=== PATIENT | male | born 1950 | race Caucasian/White ===

== ENCOUNTER 2017-03-05 15:11 | Inpatient (IN) ==
[2017-03-05] MEDS ORDERED: IOPAMIDOL 100 ML BOTTLE IJ ONE (15:12)
[2017-03-05] MEDS ORDERED: 0.9 % SODIUM CHLORIDE 1,000 ML IV ONE (15:14)
[2017-03-05] MEDS ORDERED: KETOROLAC 30 MG/ML VIAL IV ONE (15:32)
[2017-03-05] MEDS ORDERED: PROCHLORPERAZINE 10 MG/2 ML VIAL IV ONE (15:32)
[2017-03-05] MEDS: HYDROmorphone 2 MG/ML SYRINGE IV PRN ×3 (15:40→22:01)
--- NOTE | 2017-03-05 15:41 | Emergency Department Note ---
Abdominal Pain HPI - General Chief Complaint: Abdominal Pain Stated Complaint: Abdominal Pain Time Seen by Provider: 03/05/17 15:16 Source: patient Mode of arrival: ambulatory Limitations: no limitations - History of Present Illness HPI Narrative: Patient returns, seen this morning and discharged with home therapy for acute pancreatitis. States pain is severe, hydrocodone not working. Heavy ongoing alcohol use. States nausea and occasional retching. Pain is worse with drinking and eating. Pain midepigastrium, radiating to his back. No shortness of breath no fevers. No generalized abdominal pain. Multiple hospitalizations for pancreatitis in the past. Recent residential alcohol treatment, states "I was kicked out because I didn't need it" - Related Data Home Medications Medication Instructions Recorded Confirmed Omeprazole 20 mg PO DAILY 03/07/15 03/05/17 Multivit-Min/Iron Fum/Folic AC 1 each PO DAILY 01/20/17 03/05/17 [Pavcj-Wrjfmff-Yytjwrra Tablet] Thiamine [Vitamin B1] 100 mg PO DAILY 01/20/17 03/05/17 Previous Rx's Medication Instructions Recorded HYDROcodone/APAP 5/325MG [[place] 1 tab PO Q4HP PRN #14 tablet 03/05/17 5/325Mg] Ondansetron HCl [Zofran ODT] 4 mg SL Q4-6HP PRN #10 tablet 03/05/17 Allergies Allergy/AdvReac Type Severity Reaction Status Date / Time No Known Drug Allergies Allergy Verified 03/05/17 15:13 Review of Systems All systems ED: reviewed and negative except as stated. Abdominal Pain PMH - Past Medical History Medical history: Reports: GERD, other (history of pancreatitis, history of alcohol dependency, drug addiction.) Surgical history ED: Reports: non-contributory Psychiatric history: Reports: PTSD Family history: Reports: non-contributory - Social History Smoking status: Former smoker Alcohol use: Reports: Heavy (at least a sixpack per day sometimes more), Recent Drug use: Reports: none Physical Exam - General Limitations: no limitations General appearance: alert, in distress, other (actively retching) - Head Head exam: atraumatic - Eye Eye exam: Present: normal appearance. Absent: scleral icterus - ENT ENT exam: normal exam, mucous membranes moist - Neck Neck exam: Present: normal inspection. Absent: lymphadenopathy - Chest Chest inspection: Present: normal inspection - Respiratory Respiratory exam: Present: normal lung sounds bilaterally. Absent: respiratory distress - Cardiovascular Cardiovascular exam: Present: regular rate - Abdominal Exam Abdominal exam: Present: tenderness. Absent: distention, guarding, rebound, rigidity, organomegaly - Extremities Exam Extremities exam: Present: normal inspection - Back Exam Back exam: Present: normal inspection - Neurological Exam Neurological exam: Present: alert, oriented X3 - Psychiatric Psychiatric exam: Present: other (strangely affable) - Skin Skin exam: Present: warm Course - Reevaluation(s) Reevaluation #1: Dr Gamboa willing to admit Vital Signs Temperature 97.3 F 03/05/17 15:11 Pulse Rate 64 03/05/17 15:11 Respiratory Rate 20 03/05/17 15:11 Blood Pressure 161/110 03/05/17 15:11 Pulse Oximetry (%) 97 03/05/17 15:11 Temperature 97.3 F 03/05/17 15:11 Pulse Rate 73 03/05/17 17:52 Respiratory Rate 11 L 03/05/17 17:52 Blood Pressure 158/80 03/05/17 16:01 Pulse Oximetry (%) 92 03/05/17 17:52 Abdominal Pain - Lab Data Result diagrams: 03/05/17 15:49 03/05/17 15:49 Lab Results 03/05/17 03/05/17 03/05/17 Range/Units 15:49 15:49 15:49 WBC 9.8 (4.5-11.0) K/mcL RBC 4.20 L (4.50-5.90) M/mcL Hgb 14.0 (13.5-16.5) g/dL Hct 40.8 L (41.0-55.0) % MCV 97.1 (80.0-100.0) fL MCH 33.2 (26.0-34.0) pg MCHC 34.2 (31.0-36.0) g/dL RDW 13.5 (11.5-14.5) % Plt Count 209 (140-440) K/mcL MPV 8.9 (7.4-10.4) fL Gran % 89.2 H (38.0-78.0) % Lymph % (Auto) 3.8 L (15.5-49.0) % Caroline % (Auto) 6.7 (1.0-12.0) % Eos % (Auto) 0.3 (0.0-7.0) % Baso % (Auto) 0 (0.0-2.0) % Gran # 8.7 H (1.8-8.0) K/mcL Lymph # (Auto) 0.4 L (1.5-4.8) K/mcL Caroline # (Auto) 0.7 (0.1-0.9) K/mcL Eos # (Auto) 0 (0.0-0.7) K/mcL Baso # (Auto) 0 (0.0-0.3) K/mcL Sodium 134 (133-145) mmol/L Potassium 4.2 (3.3-5.1) mmol/L Chloride 93 L (96-108) mmol/L Carbon Dioxide 24 (22-30) mmol/L Anion Gap 17.0 H (8-16) BUN 6 L (8-23) mg/dl Creatinine 0.6 L (0.7-1.2) mg/dl GFR Calculation 104 Glucose 126 H (70-105) mg/dL Calcium 8.1 L (8.6-10.4) mg/dl Total Bilirubin 0.5 (0.0-1.0) mg/dL AST 65 H (0-37) U/l ALT 48 H (0-40) U/l Alkaline Phosphatase 117 (39-117) U/L Total Protein 6.7 (5.9-8.4) gm/dL Albumin 3.6 (3.2-5.2) gm/dL Globulin 3.1 (2.2-3.7) gm/dL Albumin/Globulin Ratio 1.2 (1.0-2.3) Amylase 393 H (28-100) U/L Lipase 866 H (7-60) U/L Ethyl Alcohol 0.021 H (<0.010) gm/dl - Radiology Data Radiology results reviewed: Yes I reviewed the patient's radiology results. Ct with mod pancreatitis, question of free air Plain film without free air Disposition Pt seen by [facility] only: No Clinical Impression: Alcohol withdrawal delirium, acute, hyperactive Acute pancreatitis Qualifiers: Pancreatitis type: alcohol induced Acute pancreatitis complication: no infection or necrosis Qualified Code(s): K85.20 - Alcohol induced acute pancreatitis without necrosis or infection Disposition: Xfer As Inpt ([facility]) Condition: Serious Referrals: Ascencion Oviedo ARNP [Primary Care Provider] -
[2017-03-05] MEDS ORDERED: 0.9 % SODIUM CHLORIDE 1,000 ML IV SCH (15:45)
[2017-03-05 16:14] LABS: Basophils # (Auto) 0 K/mcL (0.0-0.3); Basophils % (Auto) 0 % (0.0-2.0); Eosinophils # (Auto) 0 K/mcL (0.0-0.7); Eosinophils % (Auto) 0.3 % (0.0-7.0); Granulocytes % (Auto) 89.2 % (38.0-78.0); Lymphocytes # (Auto) 0.4 K/mcL (1.5-4.8); Lymphocytes % (Auto) 3.8 % (15.5-49.0); Mean Cell Volume 97.1 fL (80.0-100.0); Mean Corpuscular HGB Conc 34.2 g/dL (31.0-36.0); Mean Corpuscular Hemoglobin 33.2 pg (26.0-34.0); Monocytes # (Auto) 0.7 K/mcL (0.1-0.9); Monocytes % (Auto) 6.7 % (1.0-12.0); Platelet Count 209 K/mcL (140-440); Red Cell Distribution Width 13.5 % (11.5-14.5)
[2017-03-05 16:54] LABS: ALT/SGPT 48 U/l (0-40); Albumin 3.6 gm/dL (3.2-5.2); Albumin/Globulin Ratio 1.2 (1.0-2.3); Alkaline Phosphatase 117 U/L (39-117); Amylase 393 U/L (28-100); Blood Urea Nitrogen 6 mg/dl (8-23); Lipase 866 U/L (7-60)
--- NOTE | 2017-03-05 17:32 | Cat Scan Report ---
CLINICAL INFORMATION: History of pancreatitis - abdominal pain COMPARISON: None. TECHNIQUE: Following enteric contrast, 80 cc of Isovue-300 were injected and 60 seconds later 2.5 mm helical slices were obtained from the mid heart through the iliac crest. Following reconstructions, sagittal, coronal and axial reformations were processed. Exam was reviewed at bone, lung and soft tissue windows Eight minutes later repeat 5 mm helical slices were obtained from the mid heart through the kidneys. FINDINGS: The lung bases show scattered scarring and/or atelectasis with cicitration atelectasis in the medial basilar segment left lower lobe. No effusion. The visualized heart is unremarkable. Images should the abdomen show minimal fatty change within the liver but no focal lesion. Gallbladder and bile ducts are normal CBD is 6 mm. Both kidneys, adrenal glands, spleen and aorta are normal There is moderate inflammatory changes in the peripancreatic fat compatible simple pancreatitis. There is no evidence of necrosis, abscess, hemorrhage or other complication. The stomach, small and large bowel are grossly normal. There is a 10 cm collection of free air in the anterior mesenteric cavity in the right upper quadrant adjacent the liver. Small amount of free fluid is noted in the periduodenal region. Bone windows show no osseous abnormality IMPRESSION: 1. Moderate free air within the mesenteric cavity of the right upper quadrant adjacent to the liver. This would indicate GI tract rupture likely in the stomach or duodenum. 2. Moderate simple pancreatitis Interpreted and Authenticated by: Luis Ba 03/05/17
[2017-03-05] MEDS ORDERED: LORazepam 2 MG/ML VIAL IV ONE (17:39)
--- NOTE | 2017-03-05 18:58 | Internal Med History&Physical ---
Medical - H&P: [facility] Patient information: Note initiated : 03/05/17 at 6:53 pm Patient: Miquel Quinn 66 y/o M admitted on for pancreatitis, alcohol withdrawal History of present illness: Mr. Quinn is a 66 year old man with a history of alcohol abuse and previous pancreatitis. He presented to the emergency room this morning complaining of increased abdominal pain. He was hydrated and given oral pain meds and sent home. He returned this afternoon with increasing abdominal pain and inability to tolerate p.o. ER evaluation showed elevated amylase and lipase. Patient is also tremulous, and reports that he has been trying to cut down on his drinking. He reports that he started having epigastric abdominal pain about 2 days ago. His pain is very similar previous episodes of pancreatitis. He says he has been a little bit nauseated, and has had mildly blurry vision. He denies fever or chills, headaches, new ear symptoms, sore throat, chest pain or palpitations , shortness of breath or cough. He has not had vomiting, diarrhea, constipation , or dysuria. He reports that he previously drank about 24-30 cans of beer per day. He says over the last few months he has gradually cut down to about 6 beers per day. He quit smoking about 17 years ago. Past medical history: Pancreatitis, alcoholic. Alcohol abuse. GERD History of drug abuse History of PTSD Former smoker. History of alcoholic hepatitis History of syncope January 20, 2017 Medications: Omeprazole 20 mg daily Multivitamin 1 daily Thiamine 100 mg daily [place] 5/325 every 4 hours as needed Zofran sublingual 4 mg every 4 hours as needed next Allergies: No known drug allergies. Social history: Patient admits to drinking at least a sixpack of beer per day, and reports that he previously drank as much as 1-1/2 cases of beer per day. He was a chronic smoker, but quit in June 1999. Reports he does not use drugs. He currently lives with his girlfriend. He says they have several RV using cabins, and he travels quite a bit. Family history: Patient believes his mother with a stroke. His father of "natural causes". His sister has diabetes. Medical - H&P: Meds Home Medications Medication Instructions Recorded Confirmed Type Omeprazole 20 mg PO DAILY 03/07/15 03/05/17 History Multivit-Min/Iron Fum/Folic AC 1 each PO DAILY 01/20/17 03/05/17 History [Stemt-Mwnsmir-Fumomdqq Tablet] Thiamine [Vitamin B1] 100 mg PO DAILY 01/20/17 03/05/17 History HYDROcodone/APAP 5/325MG [[place] 1 tab PO Q4HP PRN #14 tablet 03/05/17 Rx 5/325Mg] Ondansetron HCl [Zofran ODT] 4 mg SL Q4-6HP PRN #10 tablet 03/05/17 Rx Allergies Allergy/AdvReac Type Severity Reaction Status Date / Time No Known Drug Allergies Allergy Verified 03/05/17 15:13 Medical - H&P: Exam - Constitutional Vitals: Temp Pulse Resp BP Pulse Ox 97.3 F 82 12 155/92 93 03/05/17 15:11 03/05/17 18:17 03/05/17 18:17 03/05/17 18:05 03/05/17 18:17 O2 saturation ranging from 80-98% on 0-3 L nasal cannula.. Heart rate ranging from 44-63. Respiratory rate ranges from 10 -30. Temperature 97.3. Blood pressure 161/98. The patient does not appear to be in any acute distress currently. Head: Normocephalic, atraumatic. Eyes: Pupils are fairly pinpoint, EOMI, anicteric. Ears: TMs and canals are clear. Pharynx: Clear. He is edentulous. No posterior pharynx discharge is noted. Neck: Is supple, without obvious lymphadenopathy, JVD, thyromegaly, bruits. Cardiac: Shows regular rate and rhythm with normal S1 and S2. There is a soft systolic murmur noted just at the apex. No rubs or gallops are noted. Lungs: Clear to auscultation, without rales, rhonchi, wheezes. Abdomen: Distended, but fairly soft. He has moderate epigastric tenderness, without significant guarding or rebound. Bowel sounds are active. No masses are appreciated. Extremities: Show no significant cyanosis, clubbing, edema. Neurologic exam: Patient is alert and oriented. He is sleepy, and does fall asleep at certain points during the interview. He otherwise seems to answer most questions appropriately. Motor exam is grossly nonfocal. No tremor is noted. Medical - H&P: Reslt - Labs CBC & Chem 7: 03/05/17 15:49 03/05/17 15:49 Labs: Short CBC 03/05/17 Range/Units 15:49 WBC 9.8 (4.5-11.0) K/mcL Hgb 14.0 (13.5-16.5) g/dL Hct 40.8 L (41.0-55.0) % Plt Count 209 (140-440) K/mcL BMP 03/05/17 15:49 Sodium 134 Potassium 4.2 Chloride 93 L Carbon Dioxide 24 BUN 6 L Creatinine 0.6 L Glucose 126 H Calcium 8.1 L Liver Function 03/05/17 Range/Units 15:49 Total Bilirubin 0.5 (0.0-1.0) mg/dL AST 65 H (0-37) U/l ALT 48 H (0-40) U/l Alkaline Phosphatase 117 (39-117) U/L Albumin 3.6 (3.2-5.2) gm/dL March 05: CBC: Differential shows a granulocyte count of 8700. Lymphocyte count is only 400. Anion gap is elevated at 17 [place] calcium is low at 8.1. AST elevated at 65 ALT elevated at 48. Lipase is elevated at 866. Amylase elevated at 393. Alcohol level is elevated at 0.021. Next Chest x-ray: Abdominal CT: Fatty liver change. Moderate inflammatory changes in the peripancreatic fat compatible with pancreatitis. No sign of necrosis, abscess, hemorrhage. Possible 10 cm collection of free air in the anterior mesenteric cavity. Follow-up x-ray is reported as showing no signs of free air. February 18, 2016: Screening hepatitis panel was negative. Medical - H&P: A/P (1) Pancreatitis, alcoholic, acute Current visit: No Status: Acute (2) Alcohol withdrawal delirium, acute, hyperactive Current visit: Yes Status: Acute - Narrative A/P Narrative: #1. GI. -Patient presents with signs and symptoms of acute, worsening, alcohol induced pancreatitis. Admit for close monitoring, IV fluids, n.p.o. status/bowel rest, pain medications, monitoring of labs. -History of GERD. Change oral omeprazole over to IV Protonix. 2. Signs of early alcohol withdrawal. Patient is a known heavy drinker. He will be monitored on telemetry, and monitored with our alcohol withdrawal protocol, and treated with Ativan and clonidine as needed. Replace with multivitamins, thiamine, folate. Plan continue IV fluids. 3. CODE STATUS: Full code. He was like his significant other, Jaci Virk, to act as his POA. He is not sure if he is ever put that in writing. 4. DVT prophylaxis: Subcu heparin. 5. Psychiatric. Reported history of PTSD. - this may need further follow-up, to see if he needs psychiatric medications. He may be self-medicating with alcohol. Days visit is taken approximately 55 minutes, to review the patient's case with the ER MD, interview and examine him, review test results, and write orders.
[2017-03-05] MEDS ORDERED: DOCUSATE SODIUM 100 MG CAPSULE PO PRN (19:28)
[2017-03-05] MEDS ORDERED: ONDANSETRON 4 MG/2 ML VIAL IV PRN (19:28)
[2017-03-05] MEDS ORDERED: ACETAMINOPHEN 650 MG/65 ML BOTTLE IV PRN (19:28)
[2017-03-05] MEDS ORDERED: POTASSIUM CHLORIDE 20 MEQ in 0.9 % SODIUM CHLORIDE 1,000 ML IV SCH (19:28)
[2017-03-05] MEDS ORDERED: MAGNESIUM HYDROXIDE 30 ML ORAL.SUSP PO PRN (19:28)
[2017-03-05] MEDS ORDERED: NALOXONE HCL 0.4 MG/ML VIAL IV PRN (19:28)
[2017-03-05] MEDS: 0.9 % SODIUM CHLORIDE 1,000 ML IV SCH (20:17)
[2017-03-05] MEDS ORDERED: ONDANSETRON 4 MG/2 ML VIAL ONE (20:26)
[2017-03-05] MEDS ORDERED: HYDROmorphone 2 MG/ML SYRINGE ONE (20:26)
[2017-03-05] MEDS: 0.9 % SODIUM CHLORIDE 10 ML SYRINGE IV SCH (20:36)
[2017-03-05] MEDS: HEPARIN 5,000 UNIT/ML VIAL SQ SCH (20:37)
[2017-03-05] MEDS ORDERED: HEPARIN 5,000 UNIT/ML VIAL ONE (20:43)
[2017-03-05] MEDS: LORazepam 2 MG/ML VIAL IV PRN (22:01)
[2017-03-05] MEDS: NACL 0.9% W/KCL 20MEQ 1,000 ML IV SCH (22:45)
[2017-03-05 22:57] LABS: Appearance,Urine CLEAR; Bilirubin,Urine NEG (NEG); Color,Urine YELLOW; Glucose,Urine (UA) NEGATIVE (NEG); Leukocyte Esterase,Urine NEG /uL (NEG); Nitrate,Urine NEG (NEG); Protein,Urine NEG (NEG); Specific Gravity,Urine 1.027 (1.000-1.035); Urine Blood NEG mg/dL (<0.03); Urobilinogen,Urine NEG (NEG)
[2017-03-06] MEDS: cloNIDine HCL 0.1 MG TABLET PO PRN (00:07)
[2017-03-06] MEDS: NACL 0.9% W/KCL 20MEQ 1,000 ML IV SCH ×6 (00:07→20:28)
[2017-03-06] MEDS: 0.9 % SODIUM CHLORIDE 1,000 ML IV SCH ×2 (00:08→04:15)
[2017-03-06] MEDS: HYDROmorphone 2 MG/ML SYRINGE IV PRN ×7 (00:32→23:36)
[2017-03-06] MEDS: 0.9 % SODIUM CHLORIDE 10 ML SYRINGE IV SCH ×3 (05:12→20:47)
[2017-03-06 05:13] LABS: Basophils # (Auto) 0 K/mcL (0.0-0.3); Basophils % (Auto) 0.1 % (0.0-2.0); Eosinophils # (Auto) 0 K/mcL (0.0-0.7); Eosinophils % (Auto) 0 % (0.0-7.0); Granulocytes % (Auto) 89.6 % (38.0-78.0); Lymphocytes # (Auto) 0.2 K/mcL (1.5-4.8); Lymphocytes % (Auto) 2.5 % (15.5-49.0); Mean Cell Volume 98.1 fL (80.0-100.0); Mean Corpuscular HGB Conc 34.3 g/dL (31.0-36.0); Mean Corpuscular Hemoglobin 33.6 pg (26.0-34.0); Monocytes # (Auto) 0.7 K/mcL (0.1-0.9); Monocytes % (Auto) 7.8 % (1.0-12.0); Platelet Count 164 K/mcL (140-440); RBC 3.94 M/mcL (4.50-5.90); Red Cell Distribution Width 13.6 % (11.5-14.5)
[2017-03-06 05:29] LABS: ALT/SGPT 39 U/l (0-40); Albumin 3.3 gm/dL (3.2-5.2); Albumin/Globulin Ratio 1.1 (1.0-2.3); Alkaline Phosphatase 125 U/L (39-117); Amylase 472 U/L (28-100); Bilirubin,Direct 0.3 mg/dL (0.0-0.3); Blood Urea Nitrogen 4 mg/dl (8-23); Gamma Glutamyl Transpeptidase 194 U/L (8-61); Lipase 838 U/L (7-60); Magnesium 1.7 mg/dL (1.6-2.5); Uric Acid 4.1 mg/dL (2.5-8.0)
--- NOTE | 2017-03-06 06:45 | XRay Report ---
CLINICAL INFORMATION: Pancreatitis. Possible free air on abdomen CT COMPARISON: Chest x-ray from 01/20/2017 FINDINGS: The heart is mildly enlarged, but unchanged. Mediastinum and pulmonary vessels are normal. There is minor atelectasis in the left base. There is no subdiaphragmatic free air. There is an air collection in the right upper quadrant which is likely within the hepatic flexure of the colon. No effusion IMPRESSION: 1. Minor left basilar atelectasis 2. No evidence of free air - please see above Interpreted and Authenticated by: Luis Ba 03/06/17
[2017-03-06] MEDS: PANTOPRAZOLE 40 MG VIAL IV SCH (07:31)
[2017-03-06] MEDS ORDERED: MULTIVIT,THER IRON,CA,FA & MIN 1 TABLET PO SCH (09:00)
[2017-03-06] MEDS ORDERED: FLU VACC QS2017-18 36MOS UP/PF 60 MCG/0.5 ML SYRINGE IM ONE (09:00)
[2017-03-06] MEDS ORDERED: THIAMINE 100 MG in 0.9 % SODIUM CHLORIDE 50 ML IV SCH (09:00)
[2017-03-06] MEDS: FOLIC ACID 1 MG TABLET PO SCH (09:25)
[2017-03-06] MEDS: HEPARIN 5,000 UNIT/ML VIAL SQ SCH ×2 (09:25→20:47)
[2017-03-06] MEDS: LORazepam 2 MG/ML VIAL IV PRN ×10 (11:25→23:45)
[2017-03-06] MEDS ORDERED: POTASSIUM CHLORIDE 20 MEQ, MAGNESIUM SULFATE 16.24 MEQ, THIAMINE 100 MG, MVI, ADULT NO.... IV ONE (16:00)
--- NOTE | 2017-03-06 16:08 | Internal Med Progress Note ---
Medical - PN: Subj Patient information: Note initiated : 03/06/17 at 4:05 pm Patient: Miquel Quinn 66 y/o M admitted on 03/05/17 for Abdominal Pain. Interval history: March 05, 2017: History of present illness: Mr. Quinn is a 66 year old man with a history of alcohol abuse and previous pancreatitis. He presented to the emergency room this morning complaining of increased abdominal pain. He was hydrated and given oral pain meds and sent home. He returned this afternoon with increasing abdominal pain and inability to tolerate p.o. ER evaluation showed elevated amylase and lipase. Patient is also tremulous, and reports that he has been trying to cut down on his drinking. He reports that he started having epigastric abdominal pain about 2 days ago. His pain is very similar previous episodes of pancreatitis. He says he has been a little bit nauseated, and has had mildly blurry vision. He denies fever or chills, headaches, new ear symptoms, sore throat, chest pain or palpitations , shortness of breath or cough. He has not had vomiting, diarrhea, constipation , or dysuria. He reports that he previously drank about 24-30 cans of beer per day. He says over the last few months he has gradually cut down to about 6 beers per day. He quit smoking about 17 years ago. March 06: This morning, the patient says he is feeling a bit better, but is still having fairly significant epigastric pain. He rates his pain as an 8 out of 10. He is getting a bit anxious waiting for more pain medicine. He denies feeling tremulous and denies that he feels like he really needs a drink. He says he is very hungry and would like to eat something. He otherwise denies fever or chills, headaches or dizziness, chest pain or shortness of breath, nausea or vomiting, diarrhea or constipation, dysuria. This afternoon, he became more agitated, and apparently pulled out his IV, and demanded to leave. Nursing staff talked with him and calmed him down, and we also called his POA to come in. It was explained to him that if he went home and ate, that his pancreatitis and abdominal pain would likely get worse, and he would have to come back. He eventually calmed down and agreed to stay. It would appear that he may have early alcohol withdrawal contributing to his anxiety. - Constitutional Vitals: Vital Signs Temp Pulse Resp BP Pulse Ox 99.3 F H 66 18 150/88 89 L 03/06/17 12:28 03/06/17 12:00 03/06/17 12:28 03/06/17 12:00 03/06/17 12:00 Period Temp Pulse Resp BP Sys/[place] Pulse Ox Last 24 Hr 98.1 F-99.3 F 64-76 16-18 143-182/87-108 89-99 Intake and Output 03/06/17 03/06/17 03/06/17 05:59 13:59 21:59 Intake Total 1999 Output Total 1650 / 1650 1924 Balance 350 / 350 166 / 166 Intake & Output: Intake & Output 03/06/17 03/06/17 03/06/17 05:59 13:59 21:59 Intake Total 1999 Output Total 1650 / 1650 1924 Balance 350 / 350 166 / 166 Intake: IV 1999 Sodium Chloride 0.9% 1, 1000 / 1000 000 ml @ 250 mls/hr IV . Q4H GARC[facility]A Rx#:[id number] NaCl 0.9% W/KCl 20Meq 1979 / 1979 1000ML 1,000 ml @ 150 mls /hr IV .Q6H40M GARCÍA Rx#: [id number] Vitamin B1 100 mg In 51 / 51 Sodium Chloride 0.9% 50 ml @ 50 mls/hr IV DAILY AGRCÍA Rx#:[id number] Oral 60 / 60 Output: Void Amount 1650 / 1650 1924 This morning the patient seemed uncomfortable, and was sitting up and leaning forward regarding his abdominal discomfort. This afternoon he was a little more anxious, and sitting up in a chair. Temperature 99.3. Heart rate 67. Respiratory rate 18. Blood pressure ranges from 147/93-182/95. O2 saturation varies from 89-99% on 2 L nasal cannula. Currently, he is not in acute distress. Neck is supple without obvious JVD. Cardiac exam shows regular rate and rhythm. Lungs are clear to auscultation. Abdomen: He has moderate to severe epigastric tenderness with moderate palpation. There is some guarding but no definite rebound. Bowel sounds are hypoactive. Extremities show no edema. Neurologic exam: The patient seems moderately confused. He is anxious at times. So far, he is redirectable. Motor exam is grossly nonfocal. Medical - PN: Obj Da - Labs CBC & Chem 7: 03/06/17 03:52 03/06/17 03:52 Labs: Abnormal Lab Results 03/06/17 03/06/17 03:52 03:52 RBC 3.94 L Hgb 13.3 L Hct 38.7 L Gran % 89.6 H Lymph % (Auto) 2.5 L Lymph # (Auto) 0.2 L Sodium 131 L Chloride 93 L BUN 4 L Creatinine 0.5 L Glucose 130 H Calcium 7.7 L Phosphorus 2.2 L GGT 194 H AST 50 H Alkaline Phosphatase 125 H Amylase 472 H Lipase 838 H Meds: Medications Clonidine HCl (Catapres) 0.1 mg PO Q4HP PRN PRN Reason: Alcohol Withdrawal Last Admin: 03/06/17 00:07 Dose: 0.1 mg Docusate Sodium (Colace) 100 mg PO BID PRN PRN Reason: Constipation Folic Acid (Folic Acid) 1 mg PO DAILY [facility] Last Admin: 03/06/17 09:25 Dose: 1 mg Heparin Sodium (Porcine) (Heparin) 5,000 unit SQ Q12 GARCÍA Last Admin: 03/06/17 09:25 Dose: 5,000 unit Hydromorphone HCl (Dilaudid) 1 mg IV Q2HP PRN PRN Reason: Pain Last Admin: 03/06/17 13:45 Dose: 1 mg Acetaminophen (Ofirmev) 650 mg in 65 mls @ 130 mls/hr IV Q6HP PRN PRN Reason: PAIN/FEVER > 101 Potassium Chloride/Sodium Chloride (Nacl 0.9% W/Kcl 20meq 1000ml) 1,000 mls @ 150 mls/hr IV .Q6H40M [facility] Last Admin: 03/06/17 13:45 Dose: 150 mls/hr Potassium Chloride 20 meq/Magnesium Sulfate 16.24 meq/Thiamine HCl 100 mg/ Multivitamins/Minerals 10 ml/Sodium Chloride 1,025 mls @ 125 mls/hr IV .Q8H12M ONE Stop: 03/07/17 00:11 Lorazepam (Ativan) 0 mg IV Q4HP PRN; Protocol PRN Reason: Alcohol Withdrawal Last Admin: 03/06/17 15:15 Dose: 4 mg Magnesium Hydroxide (Milk Of Magnesia) 30 ml PO DAILYP PRN PRN Reason: Constipation Naloxone HCl (Narcan) 0.1 mg IV Q2MIN PRN PRN Reason: Opiate Reversal Ondansetron HCl (Zofran) 4 mg IV Q4HP PRN PRN Reason: Nausea And Vomiting Pantoprazole Sodium (Protonix) 40 mg IV QAMAC [facility] Last Admin: 03/06/17 07:31 Dose: 40 mg Sodium Chloride (Saline Flush) 10 ml IV Q8 [facility] Last Admin: 03/06/17 13:45 Dose: 10 ml Medical - PN: A/P - Time Spent With Patient Total time spent is greater than 50% in coordination of care (as documented) at patient's floor/unit and/or counseling patient: Greater than 35 minutes (1) Pancreatitis, alcoholic, acute Status: Acute Current Visit: No (2) Alcohol withdrawal delirium, acute, hyperactive Status: Acute Current Visit: Yes - Narrative A/P Narrative: A/P Narrative: #1. GI. -Patient presents with signs and symptoms of acute, worsening, alcohol induced pancreatitis. Pain is only moderately well controlled today. Amylase is a bit higher, lipase a bit lower. Nursing staff and I have both explained to the patient that at this point it makes the most sense to remain n.p.o. except for ice chips, to avoid irritating his pancreas any further. It was explained to him several times that bowel rest is really the cure for pancreatitis, and that while he is on bowel rest he is best served to be on IV fluids as well. -After he calmed down, he was given doses of both Dilaudid and Ativan to help him relax. -Continue IV fluids, n.p.o. status/bowel rest, pain medications, Ativan as needed nausea and agitation. -History of GERD. Change oral omeprazole over to IV Protonix. 2. Signs of early alcohol withdrawal. Patient is a known heavy drinker. He will be monitored on telemetry, and monitored with our alcohol withdrawal protocol, and treated with Ativan and clonidine as needed. Replace with IV multivitamins, thiamine, folate. 3. CODE STATUS: Full code. He would like his significant other, Jaci Virk , to act as his POA. He is not sure if he is ever put that in writing. 4. DVT prophylaxis: Subcu heparin. 5. Psychiatric. Reported history of PTSD. - this may need further follow-up, to see if he needs psychiatric medications. He may be self-medicating with alcohol. -He certainly got anxious today, but that is likely due to alcohol withdrawal. Continue as needed Ativan. Approximately 40 minutes was spent so far today, interviewing and examining him twice, reviewing test results, reviewing plan of care with nursing, and writing orders. Addendum: The patient became agitated for a third time today, this evening, and was very confused and trying to pull out lines etc. It appears he is developing full- blown alcohol withdrawal. He will be placed in restraints, and given enough Ativan to calm him down. We need to protect his lines, so we can continue to give him IV fluids, as he continues on bowel rest for his acute pancreatitis. Continue to monitor his alcohol withdrawal symptoms, and use as needed Ativan and clonidine to control. Medical - PN: Qual - VTE Deep Vein Thrombosis/Pulmonary Embolism Present on Admission: No
[2017-03-06 22:45] LABS: Appearance,Urine CLEAR; Bilirubin,Urine NEG (NEG); Color,Urine YELLOW; Glucose,Urine (UA) NEGATIVE (NEG); Leukocyte Esterase,Urine NEG /uL (NEG); Nitrate,Urine NEG (NEG); Protein,Urine NEG (NEG); Urine Blood NEG mg/dL (<0.03); Urobilinogen,Urine NEG (NEG)
[2017-03-07] MEDS: NACL 0.9% W/KCL 20MEQ 1,000 ML IV SCH ×5 (00:18→22:44)
[2017-03-07] MEDS: LORazepam 2 MG/ML VIAL IV PRN ×16 (03:55→21:12)
[2017-03-07] MEDS: HYDROmorphone 2 MG/ML SYRINGE IV PRN ×7 (04:05→21:29)
[2017-03-07] MEDS: 0.9 % SODIUM CHLORIDE 10 ML SYRINGE IV SCH ×3 (05:34→22:44)
[2017-03-07 05:35] LABS: Basophils # (Auto) 0 K/mcL (0.0-0.3); Basophils % (Auto) 0.2 % (0.0-2.0); Eosinophils # (Auto) 0.1 K/mcL (0.0-0.7); Eosinophils % (Auto) 0.6 % (0.0-7.0); Granulocytes % (Auto) 84.9 % (38.0-78.0); Lymphocytes # (Auto) 0.5 K/mcL (1.5-4.8); Lymphocytes % (Auto) 4.9 % (15.5-49.0); Mean Cell Volume 97.9 fL (80.0-100.0); Mean Corpuscular HGB Conc 34.4 g/dL (31.0-36.0); Mean Corpuscular Hemoglobin 33.6 pg (26.0-34.0); Monocytes % (Auto) 9.4 % (1.0-12.0); Platelet Count 125 K/mcL (140-440); Red Cell Distribution Width 13.3 % (11.5-14.5)
[2017-03-07 06:00] LABS: ALT/SGPT 28 U/l (0-40); Albumin 3.1 gm/dL (3.2-5.2); Alkaline Phosphatase 108 U/L (39-117); Bilirubin,Direct 0.3 mg/dL (0.0-0.3); Blood Urea Nitrogen 4 mg/dl (8-23); Gamma Glutamyl Transpeptidase 167 U/L (8-61); Lipase 101 U/L (7-60); Magnesium 2.2 mg/dL (1.6-2.5); Uric Acid 3.4 mg/dL (2.5-8.0)
[2017-03-07] MEDS: PANTOPRAZOLE 40 MG VIAL IV SCH (07:50)
[2017-03-07] MEDS: FOLIC ACID 1 MG TABLET PO SCH (09:14)
[2017-03-07] MEDS: HEPARIN 5,000 UNIT/ML VIAL SQ SCH ×2 (09:38→20:02)
--- NOTE | 2017-03-07 11:57 | Internal Med Progress Note ---
Medical - PN: Subj Patient information: Note initiated : 03/07/17 at 11:57 am Patient: Miquel Quinn 66 y/o M admitted on 03/05/17 for Abdominal Pain. Interval history: March 05, 2017: History of present illness: Mr. Quinn is a 66 year old man with a history of alcohol abuse and previous pancreatitis. He presented to the emergency room this morning complaining of increased abdominal pain. He was hydrated and given oral pain meds and sent home. He returned this afternoon with increasing abdominal pain and inability to tolerate p.o. ER evaluation showed elevated amylase and lipase. Patient is also tremulous, and reports that he has been trying to cut down on his drinking. He reports that he started having epigastric abdominal pain about 2 days ago. His pain is very similar previous episodes of pancreatitis. He says he has been a little bit nauseated, and has had mildly blurry vision. He denies fever or chills, headaches, new ear symptoms, sore throat, chest pain or palpitations , shortness of breath or cough. He has not had vomiting, diarrhea, constipation , or dysuria. He reports that he previously drank about 24-30 cans of beer per day. He says over the last few months he has gradually cut down to about 6 beers per day. He quit smoking about 17 years ago. March 06: This morning, the patient says he is feeling a bit better, but is still having fairly significant epigastric pain. He rates his pain as an 8 out of 10. He is getting a bit anxious waiting for more pain medicine. He denies feeling tremulous and denies that he feels like he really needs a drink. He says he is very hungry and would like to eat something. He otherwise denies fever or chills, headaches or dizziness, chest pain or shortness of breath, nausea or vomiting, diarrhea or constipation, dysuria. This afternoon, he became more agitated, and apparently pulled out his IV, and demanded to leave. Nursing staff talked with him and calmed him down, and we also called his POA to come in. It was explained to him that if he went home and ate, that his pancreatitis and abdominal pain would likely get worse, and he would have to come back. He eventually calmed down and agreed to stay. It would appear that he may have early alcohol withdrawal contributing to his anxiety. March 07: Overnight, the patient has become progressively more confused and agitated. He had to be placed in 4 point restraints, as he can be quite violent when he first awakens. He has pulled out lines several times, and tried to pull out his Ramirez catheter. This morning, he is fairly sedated with Ativan. He opens his eyes and tries to answer questions, but speech is mostly unintelligible. Shortly after my exam, he again became more agitated and combative, and had to be given more sedation. He has been running a low-grade fever of 99.3. He is intermittently tachycardic and tachypneic. He is maintaining O2 saturations just fine. His significant other is questioning why, if his alcohol withdrawal is so intense, white at the [place] discharge him when he went in for detox, after just 2 days. - Constitutional Vitals: Vital Signs Temp Pulse Resp BP Pulse Ox 99.3 F H 106 H 16 121/76 96 03/07/17 08:00 03/07/17 04:16 03/07/17 08:00 03/07/17 08:00 03/07/17 09:09 Period Temp Pulse Resp BP Sys/Rosado Pulse Ox Last 24 Hr 98.1 F-99.3 F 66-106 16-30 121-150/76-103 89-97 Intake and Output 03/06/17 03/07/17 03/07/17 21:59 05:59 13:59 Intake Total 1000 / 1000 1025 / 1025 Output Total 1250 / 1250 Balance 999 / 999 -225 / -225 Weight 196 lb 4.8 oz 196 lb 4.8 oz Patient Weight 03/08/17 05:59 Weight 196 lb 4.8 oz Intake & Output: Intake & Output 03/06/17 03/07/17 03/07/17 21:59 05:59 13:59 Intake Total 1000 / 1000 1025 / 1025 Output Total 1250 / 1250 Balance 999 / 999 -225 / -225 Weight 196 lb 4.8 oz 196 lb 4.8 oz Intake: IV 1000 / 1000 1025 / 1025 NaCl 0.9% W/KCl 20Meq 1000 / 1000 1000ML 1,000 ml @ 150 mls /hr IV .Q6H40M GARC[facility]A Rx#: [id number] Output: Urine Catheter Amount 1250 / 1250 # of times incontinent of urine He is somnolent. He opens his eyes briefly to loud stimulation, but speech is not really intelligible. Temperature 99.3. Heart rate 76. Respiratory rate 20. Blood pressure 129/79. O2 saturations 96% on 2 L. Neck appears supple without obvious lymphadenopathy or JVD. Cardiac exam shows regular rate and rhythm. Lungs are clear to auscultation, without patient fully cooperative with exam. Abdomen is soft, without obvious tenderness. Bowel sounds are hypoactive. There is no guarding or rebound. Extremities show no edema. On neurologic exam, the patient is mostly obtunded. When he wakes up he is moving all extremities symmetrically. Medical - PN: Obj Da - Labs CBC & Chem 7: 03/07/17 04:13 03/07/17 04:13 Labs: Abnormal Lab Results 03/07/17 03/07/17 03/06/17 04:13 04:13 03:52 RBC 3.90 L Hgb 13.1 L Hct 38.1 L Plt Count 125 L Gran % 84.9 H Lymph % (Auto) 4.9 L Gran # 8.9 H Lymph # (Auto) 0.5 L [place] # (Auto) 1.0 H Sodium 131 L Chloride 93 L BUN 4 L 4 L Creatinine 0.5 L Glucose 130 H 130 H Calcium 7.9 L 7.7 L Phosphorus 1.5 L 2.2 L GGT 167 H 194 H AST 50 H Alkaline Phosphatase 125 H Albumin 3.1 L Amylase 472 H Lipase 101 H 838 H 03/06/17 03:52 RBC 3.94 L Hgb 13.3 L Hct 38.7 L Plt Count Gran % 89.6 H Lymph % (Auto) 2.5 L Gran # Lymph # (Auto) 0.2 L [place] # (Auto) Sodium Chloride BUN Creatinine Glucose Calcium Phosphorus GGT AST Alkaline Phosphatase Albumin Amylase Lipase March 05: MRSA screen is negative. Blood cultures are negative so far. Urinalysis: Is essentially normal. CBC: Differential shows a granulocyte count of 8700. Lymphocyte count is only 400. Anion gap is elevated at 17 calcium is low at 8.1. AST elevated at 65 ALT elevated at 48. Lipase is elevated at 866. Amylase elevated at 393. Alcohol level is elevated at 0.021. Chest x-ray: Minor left basilar atelectasis. No evidence of free air. Abdominal CT: Fatty liver change. Moderate inflammatory changes in the peripancreatic fat compatible with pancreatitis. No sign of necrosis, abscess, hemorrhage. Possible 10 cm collection of free air in the anterior mesenteric cavity. Follow-up x-ray is reported as showing no signs of free air. February 18, 2016: Screening hepatitis panel was negative. Meds: Medications Clonidine HCl (Catapres) 0.1 mg PO Q4HP PRN PRN Reason: Alcohol Withdrawal Last Admin: 03/06/17 00:07 Dose: 0.1 mg Docusate Sodium (Colace) 100 mg PO BID PRN PRN Reason: Constipation Folic Acid (Folic Acid) 1 mg PO DAILY [facility] Last Admin: 03/07/17 09:14 Dose: Not Given Heparin Sodium (Porcine) (Heparin) 5,000 unit SQ Q12 [facility] Last Admin: 03/07/17 09:38 Dose: 5,000 unit Hydromorphone HCl (Dilaudid) 1 mg IV Q2HP PRN PRN Reason: Pain Last Admin: 03/07/17 09:36 Dose: 1 mg Acetaminophen (Ofirmev) 650 mg in 65 mls @ 130 mls/hr IV Q6HP PRN PRN Reason: PAIN/FEVER > 101 Potassium Chloride/Sodium Chloride (Nacl 0.9% W/Kcl 20meq 1000ml) 1,000 mls @ 150 mls/hr IV .Q6H40M [facility] Last Admin: 03/07/17 05:36 Dose: 150 mls/hr Lorazepam (Ativan) 0 mg IV Q4HP PRN; Protocol PRN Reason: Alcohol Withdrawal Last Admin: 03/07/17 10:55 Dose: 4 mg Magnesium Hydroxide (Milk Of Magnesia) 30 ml PO DAILYP PRN PRN Reason: Constipation Naloxone HCl (Narcan) 0.1 mg IV Q2MIN PRN PRN Reason: Opiate Reversal Ondansetron HCl (Zofran) 4 mg IV Q4HP PRN PRN Reason: Nausea And Vomiting Pantoprazole Sodium (Protonix) 40 mg IV QAMAC [facility] Last Admin: 03/07/17 07:50 Dose: 40 mg Sodium Chloride (Saline Flush) 10 ml IV Q8 [facility] Last Admin: 03/07/17 05:34 Dose: 10 ml Medical - PN: A/P - Time Spent With Patient Total time spent is greater than 50% in coordination of care (as documented) at patient's floor/unit and/or counseling patient: 25 - 35 minutes (1) Pancreatitis, alcoholic, acute Status: Acute Current Visit: No (2) Alcohol withdrawal delirium, acute, hyperactive Status: Acute Current Visit: Yes - Narrative A/P Narrative: A/P Narrative: #1. GI. -Patient presents with signs and symptoms of acute, worsening, alcohol induced pancreatitis. -Patient now appears to be in full-blown alcohol withdrawal, so mental status is quite impaired. Fortunately, his lipase has dropped fairly dramatically. He continues in an n.p.o. status, with IV fluids. -Continue IV fluids, n.p.o. status/bowel rest, pain medications, Ativan as needed nausea and agitation. -History of GERD. Change oral omeprazole over to IV Protonix. 2. Signs of early alcohol withdrawal. He is now in active withdrawal. Continue to use the CIWA protocol, and use Ativan and clonidine as needed to control symptoms. Replace with IV multivitamins, thiamine, folate. 3. CODE STATUS: Full code. He would like his significant other, Jaci Virk , to act as his POA. He is not sure if he is ever put that in writing. 4. DVT prophylaxis: Subcu heparin. 5. Psychiatric. Reported history of PTSD. - this may need further follow-up, to see if he needs psychiatric medications. He may be self-medicating with alcohol. Medical - PN: Qual - VTE Deep Vein Thrombosis/Pulmonary Embolism Present on Admission: No
[2017-03-07] MEDS: cloNIDine HCL 0.1 MG TABLET PO PRN (14:15)
[2017-03-07] MEDS ORDERED: LORazepam 50 MG in DEXTROSE 5% IN WATER 75 ML IV SCH (21:15)
[2017-03-07] MEDS ORDERED: ONDANSETRON 4 MG/2 ML VIAL IV PRN (21:23)
[2017-03-07] MEDS ORDERED: DOCUSATE SODIUM 100 MG CAPSULE PO PRN (21:23)
[2017-03-07] MEDS ORDERED: MAGNESIUM HYDROXIDE 30 ML ORAL.SUSP PO PRN (21:23)
[2017-03-07] MEDS ORDERED: NALOXONE HCL 0.4 MG/ML VIAL IV PRN (21:23)
[2017-03-07] MEDS: LORazepam 50 MG in DEXTROSE 5% IN WATER 75 ML IV SCH (22:10)
[2017-03-08] MEDS: HYDROmorphone 2 MG/ML SYRINGE IV PRN ×4 (03:50→23:44)
[2017-03-08] MEDS: NACL 0.9% W/KCL 20MEQ 1,000 ML IV SCH ×2 (04:01→09:23)
[2017-03-08] MEDS: LORazepam 2 MG/ML VIAL IV PRN ×6 (04:51→14:59)
[2017-03-08] MEDS: 0.9 % SODIUM CHLORIDE 10 ML SYRINGE IV SCH ×3 (04:52→20:23)
[2017-03-08 07:07] LABS: Basophils # (Auto) 0 K/mcL (0.0-0.3); Basophils % (Auto) 0.4 % (0.0-2.0); Eosinophils # (Auto) 0.1 K/mcL (0.0-0.7); Granulocytes % (Auto) 80.2 % (38.0-78.0); Lymphocytes # (Auto) 0.5 K/mcL (1.5-4.8); Lymphocytes % (Auto) 7.3 % (15.5-49.0); Mean Cell Volume 99.7 fL (80.0-100.0); Mean Corpuscular Hemoglobin 33.9 pg (26.0-34.0); Monocytes # (Auto) 0.6 K/mcL (0.1-0.9); Monocytes % (Auto) 10.1 % (1.0-12.0); Platelet Count 87 K/mcL (140-440); RBC 3.55 M/mcL (4.50-5.90); Red Cell Distribution Width 13.6 % (11.5-14.5)
[2017-03-08] MEDS: PANTOPRAZOLE 40 MG VIAL IV SCH (07:22)
[2017-03-08 07:41] LABS: ALT/SGPT 20 U/l (0-40); Albumin 2.8 gm/dL (3.2-5.2); Albumin/Globulin Ratio 0.9 (1.0-2.3); Alkaline Phosphatase 96 U/L (39-117); Bilirubin,Direct 0.2 mg/dL (0.0-0.3); Blood Urea Nitrogen 4 mg/dl (8-23); Gamma Glutamyl Transpeptidase 144 U/L (8-61); Lipase 49 U/L (7-60); Magnesium 2.2 mg/dL (1.6-2.5); Uric Acid 3.6 mg/dL (2.5-8.0)
[2017-03-08] MEDS ORDERED: POTASSIUM PHOSPHATE 40 MEQ in DEXTROSE 5% IN WATER 500 ML IV ONE (08:06)
[2017-03-08] MEDS: FOLIC ACID 1 MG TABLET PO SCH (08:46)
[2017-03-08] MEDS ORDERED: SODIUM CHLORIDE 0.9% IV ONE (09:00)
[2017-03-08] MEDS ORDERED: SODIUM PHOSPHATE IV ONE (09:00)
[2017-03-08] MEDS ORDERED: HEPARIN 5,000 UNIT/ML VIAL SQ SCH (09:00)
[2017-03-08] MEDS: 0.9 % SODIUM CHLORIDE 1,000 ML IV SCH ×2 (09:15→21:30)
[2017-03-08] MEDS: LORazepam 50 MG in DEXTROSE 5% IN WATER 75 ML IV SCH ×3 (09:16→15:09)
[2017-03-08] MEDS: FONDAPARINUX SODIUM 2.5 MG/0.5 ML SYRINGE SQ SCH (09:20)
[2017-03-08] MEDS ORDERED: HALOPERIDOL LACTATE 5 MG/ML VIAL ONE (12:19)
[2017-03-08] MEDS: HALOPERIDOL LACTATE 5 MG/ML VIAL IV PRN ×2 (15:12→22:36)
[2017-03-08] MEDS ORDERED: LORazepam 50 MG in DEXTROSE 5% IN WATER 75 ML IV SCH ×3 (15:19→15:47)
[2017-03-08] MEDS ORDERED: LORazepam 2 MG/ML VIAL IV PRN (16:00)
--- NOTE | 2017-03-08 16:07 | Internal Med Progress Note ---
Medical - PN: Subj Patient information: Note initiated : 03/08/17 at 4:05 pm Service Date, if different from initiated Date: [] Patient: Miquel Quinn 66 y/o M admitted on 03/05/17 for Abdominal Pain/ Alcohol induced Pancreatitis. Chief Complaint: [] Interval history: March 05, 2017: History of present illness: Mr. Quinn is a 66 year old man with a history of alcohol abuse and previous pancreatitis. He presented to the emergency room this morning complaining of increased abdominal pain. He was hydrated and given oral pain meds and sent home. He returned this afternoon with increasing abdominal pain and inability to tolerate p.o. ER evaluation showed elevated amylase and lipase. Patient is also tremulous, and reports that he has been trying to cut down on his drinking. He reports that he started having epigastric abdominal pain about 2 days ago. His pain is very similar previous episodes of pancreatitis. He says he has been a little bit nauseated, and has had mildly blurry vision. He denies fever or chills, headaches, new ear symptoms, sore throat, chest pain or palpitations , shortness of breath or cough. He has not had vomiting, diarrhea, constipation , or dysuria. He reports that he previously drank about 24-30 cans of beer per day. He says over the last few months he has gradually cut down to about 6 beers per day. He quit smoking about 17 years ago. March 06: This morning, the patient says he is feeling a bit better, but is still having fairly significant epigastric pain. He rates his pain as an 8 out of 10. He is getting a bit anxious waiting for more pain medicine. He denies feeling tremulous and denies that he feels like he really needs a drink. He says he is very hungry and would like to eat something. He otherwise denies fever or chills, headaches or dizziness, chest pain or shortness of breath, nausea or vomiting, diarrhea or constipation, dysuria. This afternoon, he became more agitated, and apparently pulled out his IV, and demanded to leave. Nursing staff talked with him and calmed him down, and we also called his POA to come in. It was explained to him that if he went home and ate, that his pancreatitis and abdominal pain would likely get worse, and he would have to come back. He eventually calmed down and agreed to stay. It would appear that he may have early alcohol withdrawal contributing to his anxiety. March 07: Overnight, the patient has become progressively more confused and agitated. He had to be placed in 4 point restraints, as he can be quite violent when he first awakens. He has pulled out lines several times, and tried to pull out his Ramirez catheter. This morning, he is fairly sedated with Ativan. He opens his eyes and tries to answer questions, but speech is mostly unintelligible. Shortly after my exam, he again became more agitated and combative, and had to be given more sedation. He has been running a low-grade fever of 99.3. He is intermittently tachycardic and tachypneic. He is maintaining O2 saturations just fine. His significant other is questioning why, if his alcohol withdrawal is so intense, white at the [place] discharge him when he went in for detox, after just 2 days. March 08 Patient seen examined, plan of care reviewed with the staff. Patient obtunded this AM but wakes up intermittently with agitation and wants to rip out his lines and monitoring leads. The patient intermittently abusive. He is presently on an Ativan drip at 12-14mg/ hr with iv prn ativan. It seems that there might be a shortage of IV ativan, therefore we will switch to IV valium scheduled and continue to use IV ativan q2hrs prn as per eleazar. I have also added low dose haldol to help with the agitation 2mg q4 hrs. STarted on IV thiamine 100mg qd x 3 days. The patient has low grade temp but otherwise is hemodynamically stable. Pertinent ROS: unable - Constitutional Vitals: Vital Signs Temp Pulse Resp BP Pulse Ox 99.7 F H 95 H 28 H 143/96 94 03/08/17 13:01 03/08/17 16:02 03/08/17 16:02 03/08/17 16:02 03/08/17 16:02 Period Temp Pulse Resp BP Sys/Rosado Pulse Ox Last 24 Hr 97.8 F-99.7 F 58-95 9-28 117-152/67-96 89-98 Intake and Output 03/08/17 03/08/17 03/08/17 05:59 13:59 21:59 Intake Total 1017 / 1017 866 / 866 252 / 252 Output Total 460 / 460 480 / 480 500 / 500 Balance 557 / 557 386 / 386 -248 / -248 Intake & Output: Intake & Output 03/08/17 03/08/17 03/08/17 05:59 13:59 21:59 Intake Total 1017 / 1017 866 / 866 252 / 252 Output Total 460 / 460 480 / 480 500 / 500 Balance 557 / 557 386 / 386 -248 / -248 Intake: IV 1017 / 1017 836 / 836 192 / 192 Ativan 50 mg In Dextrose 63 / 63 192 / 192 5% in Water 75 ml @ 0.01 MG/KG/HR 1.78 mls/hr IV Q12H GARC[facility]A Rx#:[id number] NaCl 0.9% W/KCl 20Meq 773 / 773 1000ML 1,000 ml @ 100 mls /hr IV .Q10H GARC[facility]A Rx#: [id number] Oral 30 / 30 60 / 60 Output: Urine Catheter Amount 460 / 460 480 / 480 500 / 500 Other: # Bowel Movements 0 Exam: Constitutional; low grade temp, . Eyes- No icterus, , No periorbital swelling Ears- Ext ear normal, hearing normal to conversation. Neck- Midline trachea, supple Respiratory system: Air Entry equal on both sides, No crackles or wheezing, no rhonchi. CVS- Rate rhythm regular, S1,S2 heard, no gallop, no rub. Abdomen- Soft nontender abdomen, no organomegaly, no tenderness, no guarding or rigidity, [employer]- AOOx0, moving all extremities, no gross focal deficit noted. Medical - PN: Obj Da - Labs CBC & Chem 7: 03/08/17 03:35 03/08/17 03:35 Labs: Abnormal Lab Results 03/08/17 03/08/17 03/07/17 03:35 03:35 04:13 RBC 3.55 L Hgb 12.1 L Hct 35.4 L Plt Count 87 L Gran % 80.2 H Lymph % (Auto) 7.3 L Gran # Lymph # (Auto) 0.5 L [place] # (Auto) Sodium Chloride BUN 4 L 4 L Creatinine 0.6 L Glucose 130 H Calcium 7.9 L 7.9 L Phosphorus 1.5 L 1.5 L GGT 144 H 167 H AST Alkaline Phosphatase Total Protein 5.8 L Albumin 2.8 L 3.1 L Albumin/Globulin Ratio 0.9 L Amylase Lipase 101 H 03/07/17 03/06/17 03/06/17 04:13 03:52 03:52 RBC 3.90 L 3.94 L Hgb 13.1 L 13.3 L Hct 38.1 L 38.7 L Plt Count 125 L Gran % 84.9 H 89.6 H Lymph % (Auto) 4.9 L 2.5 L Gran # 8.9 H Lymph # (Auto) 0.5 L 0.2 L [place] # (Auto) 1.0 H Sodium 131 L Chloride 93 L BUN 4 L Creatinine 0.5 L Glucose 130 H Calcium 7.7 L Phosphorus 2.2 L GGT 194 H AST 50 H Alkaline Phosphatase 125 H Total Protein Albumin Albumin/Globulin Ratio Amylase 472 H Lipase 838 H Meds: Medications Clonidine HCl (Catapres) 0.1 mg PO Q4HP PRN PRN Reason: Alcohol Withdrawal Diazepam (Valium) 10 mg IV Q4 [facility]A Docusate Sodium (Colace) 100 mg PO BID PRN PRN Reason: Constipation Folic Acid (Folic Acid) 1 mg PO DAILY [facility] Last Admin: 03/08/17 08:46 Dose: Not Given Fondaparinux (Arixtra) 2.5 mg SQ DAILY [facility] Last Admin: 03/08/17 09:20 Dose: 2.5 mg Haloperidol Lactate (Haldol) 2 mg IV Q4HP PRN PRN Reason: ANXIETY/SEDATION Last Admin: 03/08/17 15:12 Dose: 2 mg Hydromorphone HCl (Dilaudid) 1 mg IV Q2HP PRN PRN Reason: Pain Last Admin: 03/08/17 07:49 Dose: 1 mg Acetaminophen (Ofirmev) 650 mg in 65 mls @ 130 mls/hr IV Q6HP PRN PRN Reason: PAIN/FEVER > 101 Sodium Chloride (Sodium Chloride 0.9%) 1,000 mls @ 84 mls/hr IV .[id number] [facility] Last Admin: 03/08/17 09:15 Dose: 84 mls/hr Thiamine HCl 100 mg/ Sodium (Chloride) 51 mls @ 50 mls/hr IV DAILY [facility] Stop: 03/10/17 10:02 Lorazepam (Ativan) 0 mg IV Q2HP PRN; Protocol PRN Reason: Alcohol Withdrawal Magnesium Hydroxide (Milk Of Magnesia) 30 ml PO DAILYP PRN PRN Reason: Constipation Naloxone HCl (Narcan) 0.1 mg IV Q2MIN PRN PRN Reason: Opiate Reversal Ondansetron HCl (Zofran) 4 mg IV Q4HP PRN PRN Reason: Nausea And Vomiting Pantoprazole Sodium (Protonix) 40 mg IV QAMAC [facility] Last Admin: 03/08/17 07:22 Dose: 40 mg Sodium Chloride (Saline Flush) 10 ml IV Q8 [facility] Last Admin: 03/08/17 15:00 Dose: 10 ml Medical - PN: A/P - Time Spent With Patient Total time spent is greater than 50% in coordination of care (as documented) at patient's floor/unit and/or counseling patient: (1) Thrombocytopenia Status: Acute Current Visit: Yes (2) Hypophosphatemia Status: Acute Current Visit: Yes (3) Alcohol withdrawal delirium, acute, hyperactive Status: Acute Current Visit: Yes (4) Acute pancreatitis Status: Acute Current Visit: Yes - Narrative A/P Narrative: A/P Narrative: #1. GI. -Patient presents with signs and symptoms of acute, worsening, alcohol induced pancreatitis. Lipase improving, and is now in normal range. this AM patient was quite sedated and we could not ascertain pain level. The patient remains npo -Continue IV fluids, n.p.o. status/bowel rest, pain medications, Ativan as needed nausea and agitation. -History of GERD. On IV Protonix. 2. alcohol withdrawal/ Delirium Tremors He is now in active withdrawal. Continue to use the CIWA protocol, and use Ativan q2 prn and scheduled valium for treatment of his symptoms and clonidine as needed to control symptoms. Haldol 2mg q4hrs prn for severe agitations not controlled by benzo if worsens continue with increasing dose of valium, if needed will consider intubation and propofol. Replace with IV multivitamins, thiamine, folate. 3. CODE STATUS: Full code. He would like his significant other, Jaci Virk , to act as his POA. He is not sure if he is ever put that in writing. 4. DVT prophylaxis: Subcu arixtra 5. Psychiatric. Reported history of PTSD. - this may need further follow-up, to see if he needs psychiatric medications. He may be self-medicating with alcohol. 6. Thrombocytopenia: Steady drop of platelet counts, d/c heparin, start on arixtra for DVT prophylaxis, HIT workup sent. 7:. Hypophosphatemia: replace IV with sodium phosphate. Medical - PN: Qual - VTE Deep Vein Thrombosis/Pulmonary Embolism Present on Admission: No
[2017-03-08] MEDS: DIAZEPAM 10 MG/2 ML SYRINGE IV SCH ×3 (16:08→18:51)
[2017-03-08] MEDS ORDERED: DIAZEPAM 10 MG/2 ML SYRINGE IV ONE (16:47)
[2017-03-08] MEDS: THIAMINE 100 MG in 0.9 % SODIUM CHLORIDE 50 ML IV SCH (16:49)
[2017-03-08] MEDS: ACETAMINOPHEN 650 MG/65 ML BOTTLE IV PRN (20:11)
[2017-03-09] MEDS: DIAZEPAM 10 MG/2 ML SYRINGE IV SCH ×3 (01:43→08:56)
[2017-03-09] MEDS: HYDROmorphone 2 MG/ML SYRINGE IV PRN ×6 (05:38→21:06)
[2017-03-09] MEDS: 0.9 % SODIUM CHLORIDE 10 ML SYRINGE IV SCH ×5 (05:58→23:43)
[2017-03-09 06:25] LABS: Basophils # (Auto) 0 K/mcL (0.0-0.3); Basophils % (Auto) 0.5 % (0.0-2.0); Eosinophils # (Auto) 0.1 K/mcL (0.0-0.7); Eosinophils % (Auto) 2.8 % (0.0-7.0); Granulocytes % (Auto) 76.2 % (38.0-78.0); Lymphocytes # (Auto) 0.5 K/mcL (1.5-4.8); Lymphocytes % (Auto) 9.8 % (15.5-49.0); Mean Cell Volume 99.7 fL (80.0-100.0); Mean Corpuscular HGB Conc 33.9 g/dL (31.0-36.0); Mean Corpuscular Hemoglobin 33.8 pg (26.0-34.0); Monocytes # (Auto) 0.5 K/mcL (0.1-0.9); Monocytes % (Auto) 10.7 % (1.0-12.0); Platelet Count 96 K/mcL (140-440); Red Cell Distribution Width 13.5 % (11.5-14.5)
[2017-03-09 06:35] LABS: ALT/SGPT 17 U/l (0-40); Albumin 2.5 gm/dL (3.2-5.2); Albumin/Globulin Ratio 0.8 (1.0-2.3); Alkaline Phosphatase 103 U/L (39-117); Bilirubin,Direct 0.2 mg/dL (0.0-0.3); Blood Urea Nitrogen 2 mg/dl (8-23); Gamma Glutamyl Transpeptidase 161 U/L (8-61); Magnesium 1.9 mg/dL (1.6-2.5); Uric Acid 3.6 mg/dL (2.5-8.0)
[2017-03-09] MEDS: OMEPRAZOLE 20 MG CAPSULE PO SCH (07:08)
[2017-03-09] MEDS: PANTOPRAZOLE 40 MG VIAL IV SCH (07:13)
[2017-03-09] MEDS: 0.9 % SODIUM CHLORIDE 1,000 ML IV SCH (08:57)
[2017-03-09] MEDS ORDERED: FLU VACC QS2017-18 36MOS UP/PF 60 MCG/0.5 ML SYRINGE IM ONE (09:00)
[2017-03-09] MEDS: THIAMINE 100 MG in 0.9 % SODIUM CHLORIDE 50 ML IV SCH (09:29)
[2017-03-09] MEDS: FOLIC ACID 1 MG TABLET PO SCH (09:31)
[2017-03-09] MEDS: DIAZEPAM 10 MG/2 ML SYRINGE IV PRN ×3 (09:41→23:49)
[2017-03-09] MEDS: FONDAPARINUX SODIUM 2.5 MG/0.5 ML SYRINGE SQ SCH (09:57)
--- NOTE | 2017-03-09 10:19 | Internal Med Progress Note ---
Medical - PN: Subj Patient information: Note initiated : 03/09/17 at 10:19 am Patient: Miquel Quinn 66 y/o M admitted on 03/05/17 for Abdominal Pain/ Alcohol induced Pancreatitis. Interval history: March 05, 2017: History of present illness: Mr. Quinn is a 66 year old man with a history of alcohol abuse and previous pancreatitis. He presented to the emergency room this morning complaining of increased abdominal pain. He was hydrated and given oral pain meds and sent home. He returned this afternoon with increasing abdominal pain and inability to tolerate p.o. ER evaluation showed elevated amylase and lipase. Patient is also tremulous, and reports that he has been trying to cut down on his drinking. He reports that he started having epigastric abdominal pain about 2 days ago. His pain is very similar previous episodes of pancreatitis. He says he has been a little bit nauseated, and has had mildly blurry vision. He denies fever or chills, headaches, new ear symptoms, sore throat, chest pain or palpitations , shortness of breath or cough. He has not had vomiting, diarrhea, constipation , or dysuria. He reports that he previously drank about 24-30 cans of beer per day. He says over the last few months he has gradually cut down to about 6 beers per day. He quit smoking about 17 years ago. March 06: This morning, the patient says he is feeling a bit better, but is still having fairly significant epigastric pain. He rates his pain as an 8 out of 10. He is getting a bit anxious waiting for more pain medicine. He denies feeling tremulous and denies that he feels like he really needs a drink. He says he is very hungry and would like to eat something. He otherwise denies fever or chills, headaches or dizziness, chest pain or shortness of breath, nausea or vomiting, diarrhea or constipation, dysuria. This afternoon, he became more agitated, and apparently pulled out his IV, and demanded to leave. Nursing staff talked with him and calmed him down, and we also called his POA to come in. It was explained to him that if he went home and ate, that his pancreatitis and abdominal pain would likely get worse, and he would have to come back. He eventually calmed down and agreed to stay. It would appear that he may have early alcohol withdrawal contributing to his anxiety. March 07: Overnight, the patient has become progressively more confused and agitated. He had to be placed in 4 point restraints, as he can be quite violent when he first awakens. He has pulled out lines several times, and tried to pull out his Ramirez catheter. This morning, he is fairly sedated with Ativan. He opens his eyes and tries to answer questions, but speech is mostly unintelligible. Shortly after my exam, he again became more agitated and combative, and had to be given more sedation. He has been running a low-grade fever of 99.3. He is intermittently tachycardic and tachypneic. He is maintaining O2 saturations just fine. His significant other is questioning why, if his alcohol withdrawal is so intense, [facility] at the [place] discharge him when he went in for detox, after just 2 days. March 08 Patient seen examined, plan of care reviewed with the staff. Patient obtunded this AM but wakes up intermittently with agitation and wants to rip out his lines and monitoring leads. The patient intermittently abusive. He is presently on an Ativan drip at 12-14mg/ hr with iv prn ativan. It seems that there might be a shortage of IV ativan, therefore we will switch to IV valium scheduled and continue to use IV ativan q2hrs prn as per eleazar. I have also added low dose haldol to help with the agitation 2mg q4 hrs. STarted on IV thiamine 100mg qd x 3 days. The patient has low grade temp but otherwise is hemodynamically stable. March 09: Overnight, the patient was switched from an Ativan drip to scheduled IV Valium. He had a relatively, calmer night but did exhibit some bradycardia during the night down into the 30s. 2 doses of Valium were held due to bradycardia. He was then given 1 dose of Haldol and 1 dose of Ativan to help manage agitation. He continues in 4 point restraints and mitts. He did have a low-grade temperature of 100.3. This morning he continues to be quite groggy. He is unable to wake up enough to give me a review of systems. - Constitutional Vitals: Vital Signs Temp Pulse Resp BP Pulse Ox 98.2 F 63 11 L 158/95 95 03/09/17 09:02 03/09/17 10:03 03/09/17 10:03 03/09/17 10:02 03/09/17 10:03 Period Temp Pulse Resp BP Sys/Rosado Pulse Ox Last 24 Hr 97.7 F-100.3 F 43-95 8-28 95-166/70-103 89-99 Intake and Output 03/08/17 03/09/17 03/09/17 21:59 05:59 13:59 Intake Total 185 / 185 Output Total 1070 / 1070 785 / 785 530 / 530 Balance 788 / 788 -785 / -785 -530 / -530 Weight 190 lb 9.6 oz Intake & Output: Intake & Output 03/08/17 03/09/17 03/09/17 21:59 05:59 13:59 Intake Total 185 / 185 Output Total 1070 / 1070 785 / 785 530 / 530 Balance 788 / 788 -785 / -785 -530 / -530 Weight 190 lb 9.6 oz Intake: IV 1768 / 1768 Sodium Chloride 0.9% 1, 1000 / 1000 000 ml @ 84 mls/hr IV . [id number] GARCÍA Rx#:[id number] Ativan 50 mg In Dextrose 192 / 192 5% in Water 75 ml @ 0.01 MG/KG/HR 1.78 mls/hr IV Q12H GARCÍA Rx#:[id number] Vitamin B1 100 mg In 51 / 51 Sodium Chloride 0.9% 50 ml @ 50 mls/hr IV DAILY GARCÍA Rx#:[id number] Oral 90 / 90 Output: Urine Catheter Amount 1070 / 1070 785 / 785 530 / 530 Other: # Bowel Movements 0 Heart rate is ranging from 49-72. Respiratory rate from 11-17. Blood pressure 158/95. O2 saturation is 95-98% on 2 L nasal cannula. He is currently afebrile. Patient is somnolent, and has minimal response to verbal and tactile stimulation. Neck is supple without obvious lymphadenopathy or JVD. Cardiac exam shows regular rate and rhythm. Lungs: There is a fair amount of upper airway noise, due to snoring. Lower lungs are probably clear to auscultation. Abdomen appears soft and nontender. Bowel sounds are active. Extremities: Show no significant edema. He does continue in 4 point restraints and mitts. Neurologic exam: Patient is heavily sedated. Medical - PN: Obj Da - Labs CBC & Chem 7: 03/09/17 03:50 03/09/17 03:50 Labs: Abnormal Lab Results 03/09/17 03/09/17 03/08/17 03:50 03:50 03:35 RBC 3.10 L Hgb 10.5 L Hct 30.9 L Plt Count 96 L Gran % Lymph % (Auto) 9.8 L Gran # Lymph # (Auto) 0.5 L Dolores # (Auto) BUN 2 L 4 L Creatinine 0.5 L 0.6 L Glucose Calcium 7.9 L 7.9 L Phosphorus 2.6 L 1.5 L GGT 161 H 144 H Total Protein 5.5 L 5.8 L Albumin 2.5 L 2.8 L Albumin/Globulin Ratio 0.8 L 0.9 L Lipase 03/08/17 03/07/17 03/07/17 03:35 04:13 04:13 RBC 3.55 L 3.90 L Hgb 12.1 L 13.1 L Hct 35.4 L 38.1 L Plt Count 87 L 125 L Gran % 80.2 H 84.9 H Lymph % (Auto) 7.3 L 4.9 L Gran # 8.9 H Lymph # (Auto) 0.5 L 0.5 L Dolores # (Auto) 1.0 H BUN 4 L Creatinine Glucose 130 H Calcium 7.9 L Phosphorus 1.5 L GGT 167 H Total Protein Albumin 3.1 L Albumin/Globulin Ratio Lipase 101 H March 08: Heparin dependent antibodies: Pending March 05: MRSA screen is negative. Blood cultures are negative so far. Urinalysis: Is essentially normal. CBC: Differential shows a granulocyte count of 8700. Lymphocyte count is only 400. Anion gap is elevated at 17 calcium is low at 8.1. AST elevated at 65 ALT elevated at 48. Lipase is elevated at 866. Amylase elevated at 393. Alcohol level is elevated at 0.021. Chest x-ray: Minor left basilar atelectasis. No evidence of free air. Abdominal CT: Fatty liver change. Moderate inflammatory changes in the peripancreatic fat compatible with pancreatitis. No sign of necrosis, abscess, hemorrhage. Possible 10 cm collection of free air in the anterior mesenteric cavity. Follow-up x-ray is reported as showing no signs of free air. February 18, 2016: Screening hepatitis panel was negative. Meds: Medications Clonidine HCl (Catapres) 0.1 mg PO Q4HP PRN PRN Reason: Alcohol Withdrawal Diazepam (Valium) 10 mg IV Q4 [facility] Last Admin: 03/09/17 08:56 Dose: Not Given Diazepam (Valium) 2 - 10 mg IV Q2HP PRN PRN Reason: Alcohol Withdrawal Docusate Sodium (Colace) 100 mg PO BID PRN PRN Reason: Constipation Folic Acid (Folic Acid) 1 mg PO DAILY [facility] Last Admin: 03/09/17 09:31 Dose: Not Given Fondaparinux (Arixtra) 2.5 mg SQ DAILY [facility] Last Admin: 03/09/17 09:57 Dose: 2.5 mg Haloperidol Lactate (Haldol) 2 mg IV Q4HP PRN PRN Reason: ANXIETY/SEDATION Last Admin: 03/08/17 22:36 Dose: 2 mg Hydromorphone HCl (Dilaudid) 1 mg IV Q2HP PRN PRN Reason: Pain Last Admin: 03/09/17 09:48 Dose: 1 mg Acetaminophen (Ofirmev) 650 mg in 65 mls @ 130 mls/hr IV Q6HP PRN PRN Reason: PAIN/FEVER > 101 Last Infusion: 03/08/17 21:13 Dose: Infused Sodium Chloride (Sodium Chloride 0.9%) 1,000 mls @ 84 mls/hr IV .[id number] [facility] Last Admin: 03/09/17 08:57 Dose: Not Given Thiamine HCl 100 mg/ Sodium (Chloride) 51 mls @ 50 mls/hr IV DAILY [facility] Stop: 03/10/17 10:02 Last Admin: 03/09/17 09:29 Dose: 50 mls/hr Lorazepam (Ativan) 0 mg IV Q2HP PRN; Protocol PRN Reason: Alcohol Withdrawal Last Admin: 03/08/17 23:02 Dose: 8 mg Magnesium Hydroxide (Milk Of Magnesia) 30 ml PO DAILYP PRN PRN Reason: Constipation Naloxone HCl (Narcan) 0.1 mg IV Q2MIN PRN PRN Reason: Opiate Reversal Omeprazole (Prilosec) 20 mg PO ACB [facility] Last Admin: 03/09/17 07:08 Dose: Not Given Ondansetron HCl (Zofran) 4 mg IV Q4HP PRN PRN Reason: Nausea And Vomiting Pantoprazole Sodium (Protonix) 40 mg IV QAMAC [facility] Last Admin: 03/09/17 07:13 Dose: 40 mg Sodium Chloride (Saline Flush) 10 ml IV Q8 [facility] Last Admin: 03/09/17 05:58 Dose: Not Given Sodium Chloride (Saline Flush) 10 ml IV Q8 [facility] Medical - PN: A/P - Time Spent With Patient Total time spent is greater than 50% in coordination of care (as documented) at patient's floor/unit and/or counseling patient: 25 - 35 minutes (1) Pancreatitis, alcoholic, acute Status: Acute Current Visit: No (2) Alcohol withdrawal delirium, acute, hyperactive Status: Acute Current Visit: Yes - Narrative A/P Narrative: A/P Narrative: #1. GI. -Patient presents with signs and symptoms of acute, worsening, alcohol induced pancreatitis. Lipase improving, and is now in normal range. this AM patient was quite sedated and we could not ascertain pain level. The patient remains npo . -Continue IV fluids, n.p.o. status/bowel rest, pain medications, Ativan as needed nausea and agitation. -History of GERD. On IV Protonix. 2. alcohol withdrawal/ Delirium Tremins He is now in active withdrawal. Continue to use the CIWA protocol. IV Ativan drip was changed to intermittent IV Valium, regarding Ativan shortage. He is quite sedated on the scheduled Valium, so we will change that so it can be titrated to a lower dose as indicated. Continue clonidine and Haldol as needed. Hopefully he will be a bit calmer today when he wakes up. He should be through the worst part of his withdrawal by now. Replace with IV multivitamins, thiamine, folate. 3. CODE STATUS: Full code. He would like his significant other, Jaci Virk , to act as his POA. He is not sure if he is ever put that in writing. 4. DVT prophylaxis: Subcu arixtra. Heparin discontinued due to decline in his platelet count. Antibodies are pending. 5. Psychiatric. Reported history of PTSD. - this may need further follow-up, to see if he needs psychiatric medications. He may be self-medicating with alcohol. 6. Thrombocytopenia: Steady drop of platelet counts, d/c heparin, start on arixtra for DVT prophylaxis, HIT workup sent. 7:. Hypophosphatemia: replaced IV with sodium phosphate. #8. Pulmonary. Patient has some increased lung sounds today. It is not clear if they are just upper airway. He has had some intermittent low-grade fever, so I will order a chest x-ray. Medical - PN: Qual - VTE Deep Vein Thrombosis/Pulmonary Embolism Present on Admission: No
[2017-03-09] MEDS ORDERED: POTASSIUM CHLORIDE 20 MEQ, MAGNESIUM SULFATE 16.24 MEQ, THIAMINE 100 MG, MVI, ADULT NO.... IV SCH (11:00)
[2017-03-09] MEDS: POTASSIUM CHLORIDE 20 MEQ, MAGNESIUM SULFATE 16.24 MEQ, THIAMINE 100 MG, MVI, ADULT NO.... IV SCH (11:30)
--- NOTE | 2017-03-09 12:19 | XRay Report ---
CLINICAL INFORMATION: Shortness of breath COMPARISON: 03/05/2017 FINDINGS: Mild cardiomegaly is unchanged. Mediastinum and pulmonary vessels are normal with suboptimal inspiratory result rotation and portable technique. There is minor bibasilar atelectasis. IMPRESSION: Mild bibasilar atelectasis Interpreted and Authenticated by: Luis Ba 03/09/17
[2017-03-10] MEDS: HYDROmorphone 2 MG/ML SYRINGE IV PRN ×5 (00:14→20:02)
[2017-03-10] MEDS: 0.9 % SODIUM CHLORIDE 1,000 ML IV SCH ×3 (00:37→18:47)
[2017-03-10] MEDS: DIAZEPAM 10 MG/2 ML SYRINGE IV PRN ×2 (03:17→07:33)
[2017-03-10] MEDS: HALOPERIDOL LACTATE 5 MG/ML VIAL IV PRN (03:51)
[2017-03-10 05:00] LABS: Basophils # (Auto) 0 K/mcL (0.0-0.3); Basophils % (Auto) 0.3 % (0.0-2.0); Eosinophils # (Auto) 0.1 K/mcL (0.0-0.7); Eosinophils % (Auto) 1.4 % (0.0-7.0); Granulocytes % (Auto) 77.7 % (38.0-78.0); Lymphocytes # (Auto) 0.5 K/mcL (1.5-4.8); Lymphocytes % (Auto) 7.6 % (15.5-49.0); Mean Cell Volume 98.1 fL (80.0-100.0); Mean Corpuscular HGB Conc 34.6 g/dL (31.0-36.0); Mean Corpuscular Hemoglobin 33.9 pg (26.0-34.0); Monocytes # (Auto) 0.8 K/mcL (0.1-0.9); Platelet Count 103 K/mcL (140-440); RBC 3.39 M/mcL (4.50-5.90); Red Cell Distribution Width 12.9 % (11.5-14.5)
[2017-03-10 05:25] LABS: ALT/SGPT 16 U/l (0-40); Albumin 2.8 gm/dL (3.2-5.2); Albumin/Globulin Ratio 0.9 (1.0-2.3); Alkaline Phosphatase 104 U/L (39-117); Bilirubin,Direct 0.2 mg/dL (0.0-0.3); Blood Urea Nitrogen 2 mg/dl (8-23); Gamma Glutamyl Transpeptidase 171 U/L (8-61); Magnesium 1.8 mg/dL (1.6-2.5); Uric Acid 4.3 mg/dL (2.5-8.0)
[2017-03-10] MEDS: 0.9 % SODIUM CHLORIDE 10 ML SYRINGE IV SCH ×6 (05:50→22:13)
[2017-03-10] MEDS: PANTOPRAZOLE 40 MG VIAL IV SCH (07:45)
--- NOTE | 2017-03-10 09:34 | Internal Med Progress Note ---
Medical - PN: Subj Patient information: Note initiated : 03/10/17 at 9:34 am Patient: Miquel Quinn 66 y/o M admitted on 03/05/17 for Abdominal Pain/ Alcohol induced Pancreatitis. Interval history: March 05, 2017: History of present illness: Mr. Quinn is a 66 year old man with a history of alcohol abuse and previous pancreatitis. He presented to the emergency room this morning complaining of increased abdominal pain. He was hydrated and given oral pain meds and sent home. He returned this afternoon with increasing abdominal pain and inability to tolerate p.o. ER evaluation showed elevated amylase and lipase. Patient is also tremulous, and reports that he has been trying to cut down on his drinking. He reports that he started having epigastric abdominal pain about 2 days ago. His pain is very similar previous episodes of pancreatitis. He says he has been a little bit nauseated, and has had mildly blurry vision. He denies fever or chills, headaches, new ear symptoms, sore throat, chest pain or palpitations , shortness of breath or cough. He has not had vomiting, diarrhea, constipation , or dysuria. He reports that he previously drank about 24-30 cans of beer per day. He says over the last few months he has gradually cut down to about 6 beers per day. He quit smoking about 17 years ago. March 06: This morning, the patient says he is feeling a bit better, but is still having fairly significant epigastric pain. He rates his pain as an 8 out of 10. He is getting a bit anxious waiting for more pain medicine. He denies feeling tremulous and denies that he feels like he really needs a drink. He says he is very hungry and would like to eat something. He otherwise denies fever or chills, headaches or dizziness, chest pain or shortness of breath, nausea or vomiting, diarrhea or constipation, dysuria. This afternoon, he became more agitated, and apparently pulled out his IV, and demanded to leave. Nursing staff talked with him and calmed him down, and we also called his POA to come in. It was explained to him that if he went home and ate, that his pancreatitis and abdominal pain would likely get worse, and he would have to come back. He eventually calmed down and agreed to stay. It would appear that he may have early alcohol withdrawal contributing to his anxiety. March 07: Overnight, the patient has become progressively more confused and agitated. He had to be placed in 4 point restraints, as he can be quite violent when he first awakens. He has pulled out lines several times, and tried to pull out his Ramirez catheter. This morning, he is fairly sedated with Ativan. He opens his eyes and tries to answer questions, but speech is mostly unintelligible. Shortly after my exam, he again became more agitated and combative, and had to be given more sedation. He has been running a low-grade fever of 99.3. He is intermittently tachycardic and tachypneic. He is maintaining O2 saturations just fine. His significant other is questioning why, if his alcohol withdrawal is so intense, [facility] discharge [facility] when he went in for detox, after just 2 days. March 08 Patient seen examined, plan of care reviewed with the staff. Patient obtunded this AM but wakes up intermittently with agitation and wants to rip out his lines and monitoring leads. The patient intermittently abusive. He is presently on an Ativan drip at 12-14mg/ hr with iv prn ativan. It seems that there might be a shortage of IV ativan, therefore we will switch to IV valium scheduled and continue to use IV ativan q2hrs prn as per eleazar. I have also added low dose haldol to help with the agitation 2mg q4 hrs. STarted on IV thiamine 100mg qd x 3 days. The patient has low grade temp but otherwise is hemodynamically stable. March 09: Overnight, the patient was switched from an Ativan drip to scheduled IV Valium. He had a relatively, calmer night but did exhibit some bradycardia during the night down into the 30s. 2 doses of Valium were held due to bradycardia. He was then given 1 dose of Haldol and 1 dose of Ativan to help manage agitation. He continues in 4 point restraints and mitts. He did have a low-grade temperature of 100.3. This morning he continues to be quite groggy. He is unable to wake up enough to give me a review of systems. March 10: This morning, the patient remained quite sedated. He is still receiving intermittent IV Ativan, as he tends to be quite violent when he wakes up, and continues to have high CIWA scores. Later this morning, he was allowed to wake up more, and nurses told him that if he would start being violent and uncooperative, that they would let him get out of bed. He is now sitting up in a chair, and all restraints are removed. He is still extremely groggy, and is complaining that he needs to urinate, although he has a Ramirez catheter in place. He really is not able to give much of a history otherwise, due to sedation. - Constitutional Vitals: Vital Signs Temp Pulse Resp BP Pulse Ox 98.5 F 84 15 158/89 98 03/10/17 05:36 03/10/17 07:01 03/10/17 07:01 03/10/17 07:01 03/10/17 07:01 Period Temp Pulse Resp BP Sys/Rosado Pulse Ox Last 24 Hr 98.5 F-99.1 F 51-104 7-29 123-177/63-111 92-100 Intake and Output 03/09/17 03/10/17 03/10/17 21:59 05:59 13:59 Output Total 1120 / 1120 1140 / 1140 800 / 800 Balance -1120 / -1120 -1140 / -1140 -800 / -800 Weight 198 lb 8 oz Intake & Output: Intake & Output 03/09/17 03/10/17 03/10/17 21:59 05:59 13:59 Output Total 1120 / 1120 1140 / 1140 800 / 800 Balance -1120 / -1120 -1140 / -1140 -800 / -800 Weight 198 lb 8 oz Output: Urine Catheter Amount 1120 / 1120 1140 / 1140 800 / 800 Other: # Bowel Movements 0 Temperature 98.2. Heart rate 55. Respiratory rate 16. Blood pressure 105/71. O2 saturation 97% on room air. Patient is sitting in a chair, and is quite lethargic. He does state "I have to pee". Speech is rather difficult to interpret. Neck is supple without obvious lymphadenopathy or JVD. Cardiac exam shows regular rate and rhythm. Lung exam shows scattered rhonchi, with lots of upper airway noise. Patient has been too somnolent to cooperate with deep breathing and coughing, but may be more cooperative now that he is up in a chair. Abdomen is soft and nontender. Bowel sounds are active. Extremities show no significant edema. Neurologic exam: Patient remains sedated, and really cannot answer questions. Exam is otherwise grossly nonfocal. Medical - PN: Obj Da - Labs CBC & Chem 7: 03/10/17 04:10 03/10/17 04:10 Labs: Abnormal Lab Results 03/10/17 03/10/17 03/09/17 04:10 04:10 03:50 RBC 3.39 L Hgb 11.5 L Hct 33.3 L Plt Count 103 L Gran % Lymph % (Auto) 7.6 L Haskell % (Auto) 13.0 H Lymph # (Auto) 0.5 L BUN 2 L 2 L Creatinine 0.5 L 0.5 L Calcium 8.1 L 7.9 L Phosphorus 2.6 L GGT 171 H 161 H Total Protein 5.8 L 5.5 L Albumin 2.8 L 2.5 L Albumin/Globulin Ratio 0.9 L 0.8 L 03/09/17 03/08/17 03/08/17 03:50 03:35 03:35 RBC 3.10 L 3.55 L Hgb 10.5 L 12.1 L Hct 30.9 L 35.4 L Plt Count 96 L 87 L Gran % 80.2 H Lymph % (Auto) 9.8 L 7.3 L Haskell % (Auto) Lymph # (Auto) 0.5 L 0.5 L BUN 4 L Creatinine 0.6 L Calcium 7.9 L Phosphorus 1.5 L GGT 144 H Total Protein 5.8 L Albumin 2.8 L Albumin/Globulin Ratio 0.9 L March 10: Lipase is normal at 45. March 08: Heparin dependent antibodies: Pending March 05: MRSA screen is negative. Blood cultures are negative so far. Urinalysis: Is essentially normal. CBC: Differential shows a granulocyte count of 8700. Lymphocyte count is only 400. Anion gap is elevated at 17 calcium is low at 8.1. AST elevated at 65 ALT elevated at 48. Lipase is elevated at 866. Amylase elevated at 393. Alcohol level is elevated at 0.021. Chest x-ray: Minor left basilar atelectasis. No evidence of free air. Abdominal CT: Fatty liver change. Moderate inflammatory changes in the peripancreatic fat compatible with pancreatitis. No sign of necrosis, abscess, hemorrhage. Possible 10 cm collection of free air in the anterior mesenteric cavity. Follow-up x-ray is reported as showing no signs of free air. February 18, 2016: Screening hepatitis panel was negative. Meds: Medications Clonidine HCl (Catapres) 0.1 mg PO Q4HP PRN PRN Reason: Alcohol Withdrawal Diazepam (Valium) 2 - 10 mg IV Q2HP PRN PRN Reason: Alcohol Withdrawal Last Admin: 03/10/17 07:33 Dose: 10 mg Docusate Sodium (Colace) 100 mg PO BID PRN PRN Reason: Constipation Folic Acid (Folic Acid) 1 mg PO DAILY [facility] Last Admin: 03/09/17 09:31 Dose: Not Given Fondaparinux (Arixtra) 2.5 mg SQ DAILY [facility] Last Admin: 03/09/17 09:57 Dose: 2.5 mg Haloperidol Lactate (Haldol) 2 mg IV Q4HP PRN PRN Reason: ANXIETY/SEDATION Last Admin: 03/10/17 03:51 Dose: 2 mg Hydromorphone HCl (Dilaudid) 1 mg IV Q2HP PRN PRN Reason: Pain Last Admin: 03/10/17 07:32 Dose: 1 mg Acetaminophen (Ofirmev) 650 mg in 65 mls @ 130 mls/hr IV Q6HP PRN PRN Reason: PAIN/FEVER > 101 Last Infusion: 03/08/17 21:13 Dose: Infused Sodium Chloride (Sodium Chloride 0.9%) 1,000 mls @ 100 mls/hr IV Q10H [facility] Last Admin: 03/10/17 00:37 Dose: 100 mls/hr Potassium Chloride 20 meq/Magnesium Sulfate 16.24 meq/Thiamine HCl 100 mg/ Multivitamins/Minerals 10 ml/Sodium Chloride 1,025 mls @ 100 mls/hr IV Q24H [facility] Last Admin: 03/09/17 11:30 Dose: Not Given Lorazepam (Ativan) 0 mg IV Q2HP PRN; Protocol PRN Reason: Alcohol Withdrawal Last Admin: 03/08/17 23:02 Dose: 8 mg Magnesium Hydroxide (Milk Of Magnesia) 30 ml PO DAILYP PRN PRN Reason: Constipation Naloxone HCl (Narcan) 0.1 mg IV Q2MIN PRN PRN Reason: Opiate Reversal Omeprazole (Prilosec) 20 mg PO ACB [facility] Last Admin: 03/09/17 07:08 Dose: Not Given Ondansetron HCl (Zofran) 4 mg IV Q4HP PRN PRN Reason: Nausea And Vomiting Pantoprazole Sodium (Protonix) 40 mg IV QAMAC [facility] Last Admin: 03/10/17 07:45 Dose: 40 mg Sodium Chloride (Saline Flush) 10 ml IV Q8 [facility] Last Admin: 03/10/17 05:50 Dose: Not Given Sodium Chloride (Saline Flush) 10 ml IV Q8 [facility] Last Admin: 03/10/17 05:50 Dose: Not Given Medical - PN: A/P - Time Spent With Patient Total time spent is greater than 50% in coordination of care (as documented) at patient's floor/unit and/or counseling patient: 25 - 35 minutes (1) Pancreatitis, alcoholic, acute Status: Acute Current Visit: No (2) Alcohol withdrawal delirium, acute, hyperactive Status: Acute Current Visit: Yes - Narrative A/P Narrative: A/P Narrative: #1. GI. -Patient presents with signs and symptoms of acute, worsening, alcohol induced pancreatitis. Lipase improving, and is now in normal range. this AM patient was quite sedated and we could not ascertain pain level. Lipase is back to normal. Patient does not appear to have any abdominal tenderness, so I suspect pancreatitis has resolved. -We may try starting him on a liquid diet today, if he passes a bedside swallow eval. -History of GERD. On IV Protonix. 2. alcohol withdrawal/ Delirium Tremens -Later this morning, he is awake, and at least for now does not appear particularly violent. He appears willing to cooperate with nurses, so that he can be out of bed and have his Ramirez catheter removed. Continue to monitor his CIWA scores closely. He is fairly high risk for impulsive behavior, including removing IVs, etc. He should be through the worst of his alcohol withdrawal by now. Case management notes that [facility] will take [facility] for an inpatient rehab program, if he chooses to call them. Replace with IV multivitamins, thiamine, folate. 3. CODE STATUS: Full code. He would like his significant other, Jaci Virk , to act as his POA. He is not sure if he is ever put that in writing. 4. DVT prophylaxis: Subcu arixtra. Heparin discontinued due to decline in his platelet count. Antibodies are pending. Platelet count slightly improved today. 5. Psychiatric. Reported history of PTSD. - this may need further follow-up, to see if he needs psychiatric medications. He may be self-medicating with alcohol. 6. Thrombocytopenia: Steady drop of platelet counts, Heparin was discontinued, and patient was started on arixtra for DVT prophylaxis , HIT workup sent. 7:. Hypophosphatemia: replaced IV, improved. #8. Pulmonary. Patient has some increased lung sounds . It is not clear if they are just upper airway. Chest x-ray last night just showed mild bibasilar atelectasis. Now that he is more alert, work with him on incentive spirometry, deep breathing and cough. Medical - PN: Qual - VTE Deep Vein Thrombosis/Pulmonary Embolism Present on Admission: No
[2017-03-10] MEDS: FONDAPARINUX SODIUM 2.5 MG/0.5 ML SYRINGE SQ SCH (10:00)
[2017-03-10 10:03] LABS: Amylase 63 U/L (28-100); Lipase 45 U/L (7-60)
[2017-03-10] MEDS: OMEPRAZOLE 20 MG CAPSULE PO SCH (11:29)
[2017-03-10] MEDS: FOLIC ACID 1 MG TABLET PO SCH (11:30)
[2017-03-10] MEDS: POTASSIUM CHLORIDE 20 MEQ, MAGNESIUM SULFATE 16.24 MEQ, THIAMINE 100 MG, MVI, ADULT NO.... IV SCH (11:30)
[2017-03-10] MEDS: cloNIDine HCL 0.1 MG TABLET PO PRN (16:06)
[2017-03-10] MEDS: ACETAMINOPHEN 650 MG/65 ML BOTTLE IV PRN (19:48)
[2017-03-11] MEDS: 0.9 % SODIUM CHLORIDE 1,000 ML IV SCH ×4 (00:41→22:10)
[2017-03-11] MEDS: HYDROmorphone 2 MG/ML SYRINGE IV PRN ×4 (01:54→20:17)
[2017-03-11 05:40] LABS: Basophils # (Auto) 0 K/mcL (0.0-0.3); Basophils % (Auto) 0.3 % (0.0-2.0); Eosinophils # (Auto) 0.1 K/mcL (0.0-0.7); Eosinophils % (Auto) 1.7 % (0.0-7.0); Granulocytes % (Auto) 71.7 % (38.0-78.0); Lymphocytes # (Auto) 0.5 K/mcL (1.5-4.8); Lymphocytes % (Auto) 10.9 % (15.5-49.0); Mean Cell Volume 98.9 fL (80.0-100.0); Mean Corpuscular HGB Conc 34.2 g/dL (31.0-36.0); Mean Corpuscular Hemoglobin 33.8 pg (26.0-34.0); Monocytes # (Auto) 0.8 K/mcL (0.1-0.9); Monocytes % (Auto) 15.4 % (1.0-12.0); Platelet Count 104 K/mcL (140-440); RBC 3.41 M/mcL (4.50-5.90); Red Cell Distribution Width 13.1 % (11.5-14.5)
[2017-03-11] MEDS: 0.9 % SODIUM CHLORIDE 10 ML SYRINGE IV SCH ×6 (05:54→22:13)
[2017-03-11 06:01] LABS: ALT/SGPT 14 U/l (0-40); Albumin 2.5 gm/dL (3.2-5.2); Albumin/Globulin Ratio 0.8 (1.0-2.3); Alkaline Phosphatase 96 U/L (39-117); Bilirubin,Direct < 0.2 mg/dL (0.0-0.3); Blood Urea Nitrogen 3 mg/dl (8-23); Gamma Glutamyl Transpeptidase 171 U/L (8-61); Magnesium 2.1 mg/dL (1.6-2.5); Uric Acid 4.7 mg/dL (2.5-8.0)
[2017-03-11] MEDS: PANTOPRAZOLE 40 MG VIAL IV SCH (09:19)
[2017-03-11] MEDS: FOLIC ACID 1 MG TABLET PO SCH (09:20)
[2017-03-11] MEDS: cloNIDine HCL 0.1 MG TABLET PO PRN (09:20)
[2017-03-11] MEDS: OMEPRAZOLE 20 MG CAPSULE PO SCH (09:20)
[2017-03-11] MEDS: FONDAPARINUX SODIUM 2.5 MG/0.5 ML SYRINGE SQ SCH (09:24)
--- NOTE | 2017-03-11 10:29 | Internal Med Progress Note ---
Medical - PN: Subj Patient information: Note initiated : 03/11/17 at 10:29 am Patient: Miquel Quinn 66 y/o M admitted on 03/05/17 for Abdominal Pain/ Alcohol induced Pancreatitis. Interval history: March 05, 2017: History of present illness: Mr. Quinn is a 66 year old man with a history of alcohol abuse and previous pancreatitis. He presented to the emergency room this morning complaining of increased abdominal pain. He was hydrated and given oral pain meds and sent home. He returned this afternoon with increasing abdominal pain and inability to tolerate p.o. ER evaluation showed elevated amylase and lipase. Patient is also tremulous, and reports that he has been trying to cut down on his drinking. He reports that he started having epigastric abdominal pain about 2 days ago. His pain is very similar previous episodes of pancreatitis. He says he has been a little bit nauseated, and has had mildly blurry vision. He denies fever or chills, headaches, new ear symptoms, sore throat, chest pain or palpitations , shortness of breath or cough. He has not had vomiting, diarrhea, constipation , or dysuria. He reports that he previously drank about 24-30 cans of beer per day. He says over the last few months he has gradually cut down to about 6 beers per day. He quit smoking about 17 years ago. March 06: This morning, the patient says he is feeling a bit better, but is still having fairly significant epigastric pain. He rates his pain as an 8 out of 10. He is getting a bit anxious waiting for more pain medicine. He denies feeling tremulous and denies that he feels like he really needs a drink. He says he is very hungry and would like to eat something. He otherwise denies fever or chills, headaches or dizziness, chest pain or shortness of breath, nausea or vomiting, diarrhea or constipation, dysuria. This afternoon, he became more agitated, and apparently pulled out his IV, and demanded to leave. Nursing staff talked with him and calmed him down, and we also called his POA to come in. It was explained to him that if he went home and ate, that his pancreatitis and abdominal pain would likely get worse, and he would have to come back. He eventually calmed down and agreed to stay. It would appear that he may have early alcohol withdrawal contributing to his anxiety. March 07: Overnight, the patient has become progressively more confused and agitated. He had to be placed in 4 point restraints, as he can be quite violent when he first awakens. He has pulled out lines several times, and tried to pull out his Ramirez catheter. This morning, he is fairly sedated with Ativan. He opens his eyes and tries to answer questions, but speech is mostly unintelligible. Shortly after my exam, he again became more agitated and combative, and had to be given more sedation. He has been running a low-grade fever of 99.3. He is intermittently tachycardic and tachypneic. He is maintaining O2 saturations just fine. His significant other is questioning why, if his alcohol withdrawal is so intense, white at the [facility] discharge him when he went in for detox, after just 2 days. March 08 Patient seen examined, plan of care reviewed with the staff. Patient obtunded this AM but wakes up intermittently with agitation and wants to rip out his lines and monitoring leads. The patient intermittently abusive. He is presently on an Ativan drip at 12-14mg/ hr with iv prn ativan. It seems that there might be a shortage of IV ativan, therefore we will switch to IV valium scheduled and continue to use IV ativan q2hrs prn as per eleazar. I have also added low dose haldol to help with the agitation 2mg q4 hrs. STarted on IV thiamine 100mg qd x 3 days. The patient has low grade temp but otherwise is hemodynamically stable. March 09: Overnight, the patient was switched from an Ativan drip to scheduled IV Valium. He had a relatively, calmer night but did exhibit some bradycardia during the night down into the 30s. 2 doses of Valium were held due to bradycardia. He was then given 1 dose of Haldol and 1 dose of Ativan to help manage agitation. He continues in 4 point restraints and mitts. He did have a low-grade temperature of 100.3. This morning he continues to be quite groggy. He is unable to wake up enough to give me a review of systems. March 10: This morning, the patient remained quite sedated. He is still receiving intermittent IV Ativan, as he tends to be quite violent when he wakes up, and continues to have high CIWA scores. Later this morning, he was allowed to wake up more, and nurses told him that if he would start being violent and uncooperative, that they would let him get out of bed. He is now sitting up in a chair, and all restraints are removed. He is still extremely groggy, and is complaining that he needs to urinate, although he has a Ramirez catheter in place. He really is not able to give much of a history otherwise, due to sedation. March 11: The patient was fairly calm and cooperative all night last night. He was given Dilaudid once or twice for restlessness. He was not given any Valium since yesterday morning. He still fairly groggy this morning, and confused at times. He knows his name and where he is, but not the year etc. He is still very impulsive according to the nurses, and will try to pull lines and such out. He is no longer restrained. He is currently on max 2 person assist to get him up and out of bed and over to the chair. He does not seem to want to stand up completely straight. He has been asking to use his phone this morning. He says he is willing to eat breakfast. T-max overnight was 100.9, and is now 98. Her pressures continue to run a bit on the high side. Platelet count has been low, but is stable. GGT continues to run high, but amylase and lipase are back to normal. He is difficult to get a history out of this morning. He says yes when asked if he is in pain, but is unable to articulate where. He seems to deny chest pain or trouble breathing, nausea or vomiting or diarrhea. He has been asking the nurses to "leave me alone" - Constitutional Vitals: Vital Signs Temp Pulse Resp BP Pulse Ox 97.6 F 58 L 14 163/97 92 03/11/17 07:00 03/11/17 05:03 03/11/17 07:00 03/11/17 07:00 03/11/17 07:00 Period Temp Pulse Resp BP Sys/Rosado Pulse Ox Last 24 Hr 97.6 F-100.9 F 42-104 11-20 129-179/73-108 92-100 Intake and Output 03/10/17 03/11/17 03/11/17 21:59 05:59 13:59 Intake Total / 65 Output Total 1003 / 1003 275 / 275 275 / 275 Balance -938 / -938 -275 / -275 -275 / -275 Weight 199 lb 6.4 oz 199 lb 14.4 oz Patient Weight 03/12/17 05:59 Weight 199 lb 14.4 oz Intake & Output: Intake & Output 03/10/17 03/11/17 03/11/17 21:59 05:59 13:59 Intake Total 65 / 65 Output Total 1003 / 1003 275 / 275 275 / 275 Balance -938 / -938 -275 / -275 -275 / -275 Weight 199 lb 6.4 oz 199 lb 14.4 oz Intake: IV Output: Urine Catheter Amount 200 / 200 Void Amount 800 / 800 275 / 275 275 / 275 # of times incontinent of 3 / 3 urine Other: # Voids 0 # of times incontinent of 2 Bowels Temperature is 99.0. Blood pressure 168/91. O2 saturation 95% on room air. Patient is sitting in a chair, and is quite lethargic. Speech is rather difficult to interpret. Neck is supple without obvious lymphadenopathy or JVD. Cardiac exam shows regular rate and rhythm. Lung exam shows scattered crackles, but otherwise is much clearer than yesterday. Abdomen is soft and nontender. Bowel sounds are active. Extremities show no significant edema. Neurologic exam: Patient remains quite groggy, and does not seem to reliably answer questions. Exam is otherwise grossly nonfocal. Medical - PN: Obj Da - Labs CBC & Chem 7: 03/11/17 03:45 03/11/17 03:45 Labs: Abnormal Lab Results 03/11/17 03/11/17 03/10/17 03:45 03:45 04:10 RBC 3.41 L Hgb 11.5 L Hct 33.7 L Plt Count 104 L Lymph % (Auto) 10.9 L [place] % (Auto) 15.4 H Lymph # (Auto) 0.5 L BUN 3 L 2 L Creatinine 0.4 L 0.5 L Glucose 110 H Calcium 8.4 L 8.1 L Phosphorus GGT 171 H 171 H Total Protein 5.8 L 5.8 L Albumin 2.5 L 2.8 L Albumin/Globulin Ratio 0.8 L 0.9 L 09/03/09/17 03/09/17 04:10 03:50 03:50 RBC 3.39 L 3.10 L Hgb 11.5 L 10.5 L Hct 33.3 L 30.9 L Plt Count 103 L 96 L Lymph % (Auto) 7.6 L 9.8 L [place] % (Auto) 13.0 H Lymph # (Auto) 0.5 L 0.5 L BUN 2 L Creatinine 0.5 L Glucose Calcium 7.9 L Phosphorus 2.6 L GGT 161 H Total Protein 5.5 L Albumin 2.5 L Albumin/Globulin Ratio 0.8 L March 10: Lipase is normal at 45. Amylase is normal at 63. March 09: Chest x-ray shows minor bibasilar atelectasis. March 08: Heparin dependent antibodies: Pending March 05: MRSA screen is negative. Blood cultures are negative so far. Urinalysis: Is essentially normal. CBC: Differential shows a granulocyte count of 8700. Lymphocyte count is only 400. Anion gap is elevated at 17 calcium is low at 8.1. AST elevated at 65 ALT elevated at 48. Lipase is elevated at 866. Amylase elevated at 393. Alcohol level is elevated at 0.021. Chest x-ray: Minor left basilar atelectasis. No evidence of free air. Abdominal CT: Fatty liver change. Moderate inflammatory changes in the peripancreatic fat compatible with pancreatitis. No sign of necrosis, abscess, hemorrhage. Possible 10 cm collection of free air in the anterior mesenteric cavity. Follow-up x-ray is reported as showing no signs of free air. February 18, 2016: Screening hepatitis panel was negative. Meds: Medications Clonidine HCl (Catapres) 0.1 mg PO Q4HP PRN PRN Reason: Alcohol Withdrawal Last Admin: 03/11/17 09:20 Dose: 0.1 mg Diazepam (Valium) 2 - 10 mg IV Q2HP PRN PRN Reason: Alcohol Withdrawal Last Admin: 03/10/17 07:33 Dose: 10 mg Docusate Sodium (Colace) 100 mg PO BID PRN PRN Reason: Constipation Last Admin: 03/11/17 09:20 Dose: 100 mg Folic Acid (Folic Acid) 1 mg PO DAILY [facility] Last Admin: 03/11/17 09:20 Dose: 1 mg Fondaparinux (Arixtra) 2.5 mg SQ DAILY [facility] Last Admin: 03/11/17 09:24 Dose: 2.5 mg Haloperidol Lactate (Haldol) 2 mg IV Q4HP PRN PRN Reason: ANXIETY/SEDATION Last Admin: 03/10/17 03:51 Dose: 2 mg Hydromorphone HCl (Dilaudid) 1 mg IV Q2HP PRN PRN Reason: Pain Last Admin: 03/11/17 01:54 Dose: 1 mg Acetaminophen (Ofirmev) 650 mg in 65 mls @ 130 mls/hr IV Q6HP PRN PRN Reason: PAIN/FEVER > 101 Last Infusion: 03/10/17 20:49 Dose: Infused Sodium Chloride (Sodium Chloride 0.9%) 1,000 mls @ 100 mls/hr IV Q10H [facility] Last Admin: 03/11/17 03:27 Dose: Not Given Potassium Chloride 20 meq/Magnesium Sulfate 16.24 meq/Thiamine HCl 100 mg/ Multivitamins/Minerals 10 ml/Sodium Chloride 1,025 mls @ 100 mls/hr IV Q24H [facility] Last Admin: 03/10/17 11:30 Dose: 100 mls/hr Lorazepam (Ativan) 0 mg IV Q2HP PRN; Protocol PRN Reason: Alcohol Withdrawal Last Admin: 03/08/17 23:02 Dose: 8 mg Magnesium Hydroxide (Milk Of Magnesia) 30 ml PO DAILYP PRN PRN Reason: Constipation Last Admin: 03/11/17 09:19 Dose: 30 ml Naloxone HCl (Narcan) 0.1 mg IV Q2MIN PRN PRN Reason: Opiate Reversal Omeprazole (Prilosec) 20 mg PO ACB [facility] Last Admin: 03/11/17 09:20 Dose: 20 mg Ondansetron HCl (Zofran) 4 mg IV Q4HP PRN PRN Reason: Nausea And Vomiting Pantoprazole Sodium (Protonix) 40 mg IV QAMAC [facility] Last Admin: 03/11/17 09:19 Dose: 40 mg Sodium Chloride (Saline Flush) 10 ml IV Q8 [facility] Last Admin: 03/11/17 05:54 Dose: Not Given Sodium Chloride (Saline Flush) 10 ml IV Q8 [facility] Last Admin: 03/11/17 05:55 Dose: Not Given Medical - PN: A/P - Time Spent With Patient Total time spent is greater than 50% in coordination of care (as documented) at patient's floor/unit and/or counseling patient: 25 - 35 minutes (1) Pancreatitis, alcoholic, acute Status: Acute Current Visit: No (2) Alcohol withdrawal delirium, acute, hyperactive Status: Acute Current Visit: Yes - Narrative A/P Narrative: A/P Narrative: #1. GI. -Patient presents with signs and symptoms of acute, worsening, alcohol induced pancreatitis. Lipase is back to normal. Patient does not appear to have any abdominal tenderness, so I suspect pancreatitis has resolved. He is now eating a soft diet, and so far seems to be tolerating that, although he does not have much of an appetite. -History of GERD. On IV Protonix. 2. alcohol withdrawal/ Delirium Tremens -The worst of his withdrawal symptoms seem to be over, but he remains quite groggy. I suspect it is just taking him along time to metabolize all of the drugs he is received over the last several days. We will continue with supportive care, and hopes that he gradually wakes up. He is a bit on the irritable side, but is otherwise much more cooperative than a couple of days ago. Continue to monitor his CIWA scores closely. He is fairly high risk for impulsive behavior, including removing IVs, etc. [facility] if [facility] chooses to [facility] them. Replace with IV multivitamins, thiamine, folate. 3. CODE STATUS: Full code. He would like his significant other, Jaci Virk , to act as his POA. He is not sure if he is ever put that in writing. 4. DVT prophylaxis: Subcu arixtra. Heparin discontinued due to decline in his platelet count. Antibodies are pending. Platelet count slightly improved today. 5. Psychiatric. Reported history of PTSD. - this may need further follow-up, to see if he needs psychiatric medications. He may be self-medicating with alcohol. 6. Thrombocytopenia: Steady drop of platelet counts, Heparin was discontinued, and patient was started on arixtra for DVT prophylaxis , HIT workup sent. Heparin antibodies were negative. Platelets have been fairly stable, without signs of bleeding. 7:. Hypophosphatemia: replaced IV, improved. #8. Pulmonary. Patient had some increased lung sounds . It is not clear if they are just upper airway. Chest x-ray just showed mild bibasilar atelectasis. Now that he is more alert , work with him on incentive spirometry, deep breathing and cough. Approximately 25 minutes was spent today, reviewing the patient's test results, reviewing his case at our team meeting, interviewing and examining him, and writing orders. Medical - PN: Qual - VTE Deep Vein Thrombosis/Pulmonary Embolism Present on Admission: No
[2017-03-11] MEDS ORDERED: DIAZEPAM 10 MG/2 ML SYRINGE IV PRN (10:42)
[2017-03-11] MEDS ORDERED: DOCUSATE SODIUM 100 MG CAPSULE PO PRN (10:42)
[2017-03-11] MEDS ORDERED: NALOXONE HCL 0.4 MG/ML VIAL IV PRN (10:42)
[2017-03-11] MEDS ORDERED: ONDANSETRON 4 MG/2 ML VIAL IV PRN (10:42)
[2017-03-11] MEDS ORDERED: MAGNESIUM HYDROXIDE 30 ML ORAL.SUSP PO PRN (10:42)
[2017-03-11] MEDS: POTASSIUM CHLORIDE 20 MEQ, MAGNESIUM SULFATE 16.24 MEQ, THIAMINE 100 MG, MVI, ADULT NO.... IV SCH (11:41)
[2017-03-11] MEDS ORDERED: BISACODYL 10 MG SUPP.RECT PR PRN (14:46)
[2017-03-12] MEDS: HALOPERIDOL LACTATE 5 MG/ML VIAL IV PRN ×2 (00:26→03:30)
[2017-03-12] MEDS: LORazepam 2 MG/ML VIAL IV PRN ×3 (01:21→05:30)
[2017-03-12] MEDS: HYDROmorphone 2 MG/ML SYRINGE IV PRN ×2 (02:42→19:06)
[2017-03-12] MEDS: ACETAMINOPHEN 650 MG/65 ML BOTTLE IV PRN ×2 (03:30→16:43)
[2017-03-12] MEDS: 0.9 % SODIUM CHLORIDE 10 ML SYRINGE IV SCH ×5 (05:35→21:35)
[2017-03-12 05:43] LABS: Basophils # (Auto) 0 K/mcL (0.0-0.3); Basophils % (Auto) 0.2 % (0.0-2.0); Eosinophils # (Auto) 0.1 K/mcL (0.0-0.7); Eosinophils % (Auto) 0.9 % (0.0-7.0); Granulocytes % (Auto) 79.5 % (38.0-78.0); Lymphocytes # (Auto) 0.4 K/mcL (1.5-4.8); Lymphocytes % (Auto) 6.5 % (15.5-49.0); Mean Cell Volume 98.5 fL (80.0-100.0); Mean Corpuscular HGB Conc 34.7 g/dL (31.0-36.0); Mean Corpuscular Hemoglobin 34.2 pg (26.0-34.0); Monocytes # (Auto) 0.8 K/mcL (0.1-0.9); Monocytes % (Auto) 12.9 % (1.0-12.0); Platelet Count 128 K/mcL (140-440); RBC 3.08 M/mcL (4.50-5.90); Red Cell Distribution Width 13.2 % (11.5-14.5)
[2017-03-12 05:56] LABS: ALT/SGPT 14 U/l (0-40); Albumin 2.4 gm/dL (3.2-5.2); Albumin/Globulin Ratio 0.8 (1.0-2.3); Alkaline Phosphatase 85 U/L (39-117); Bilirubin,Direct < 0.2 mg/dL (0.0-0.3); Blood Urea Nitrogen 3 mg/dl (8-23); Gamma Glutamyl Transpeptidase 142 U/L (8-61); Magnesium 1.9 mg/dL (1.6-2.5); Uric Acid 3.7 mg/dL (2.5-8.0)
[2017-03-12] MEDS ORDERED: OMEPRAZOLE 20 MG CAPSULE PO SCH (07:30)
[2017-03-12] MEDS ORDERED: PANTOPRAZOLE 40 MG VIAL IV SCH (07:30)
[2017-03-12] MEDS: 0.9 % SODIUM CHLORIDE 1,000 ML IV SCH (08:30)
--- NOTE | 2017-03-12 08:36 | XRay Report ---
CLINICAL INFORMATION: Fever COMPARISON: 03/09/2017 FINDINGS: The heart is mildly enlarged, but unchanged. Mediastinum and pulmonary vessels are unremarkable. Small patchy bibasilar infiltrates or atelectasis shows slight progression. Tiny bilateral pleural effusions noted IMPRESSION: Mild patchy bibasilar atelectasis or less likely infiltrate and effusions- slight progression Interpreted and Authenticated by: Luis Ba 03/12/17
[2017-03-12] MEDS: PIPERACILLIN SODIUM/TAZOBACTAM 3.375 GM in DEXTROSE 5% IN WATER 50 ML IV SCH ×3 (09:00→22:30)
[2017-03-12] MEDS ORDERED: FOLIC ACID 1 MG TABLET PO SCH (09:00)
[2017-03-12] MEDS ORDERED: FONDAPARINUX SODIUM 2.5 MG/0.5 ML SYRINGE SQ SCH (09:00)
[2017-03-12] MEDS: cloNIDine HCL 0.1 MG TABLET PO PRN ×3 (09:01→23:46)
[2017-03-12 09:55] LABS: Appearance,Urine CLEAR; Bilirubin,Urine NEG (NEG); Color,Urine PALE YELLOW; Glucose,Urine (UA) NORM (NORM); Leukocyte Esterase,Urine NEG /mcL (NEG); Nitrate,Urine NEG (NEG); Protein,Urine NEG mg/dL (<25); Specific Gravity,Urine 1.004 (1.000-1.035); Urine Blood NEG ery/mcL (<5); Urobilinogen,Urine NORM (NORM)
--- NOTE | 2017-03-12 10:04 | Internal Med Progress Note ---
Medical - PN: Subj Patient information: Note initiated : 03/12/17 at 10:04 am Patient: Miquel Quinn 66 y/o M admitted on 03/05/17 for Abdominal Pain/ Alcohol induced Pancreatitis. Interval history: March 05, 2017: History of present illness: Mr. Quinn is a 66 year old man with a history of alcohol abuse and previous pancreatitis. He presented to the emergency room this morning complaining of increased abdominal pain. He was hydrated and given oral pain meds and sent home. He returned this afternoon with increasing abdominal pain and inability to tolerate p.o. ER evaluation showed elevated amylase and lipase. Patient is also tremulous, and reports that he has been trying to cut down on his drinking. He reports that he started having epigastric abdominal pain about 2 days ago. His pain is very similar previous episodes of pancreatitis. He says he has been a little bit nauseated, and has had mildly blurry vision. He denies fever or chills, headaches, new ear symptoms, sore throat, chest pain or palpitations , shortness of breath or cough. He has not had vomiting, diarrhea, constipation , or dysuria. He reports that he previously drank about 24-30 cans of beer per day. He says over the last few months he has gradually cut down to about 6 beers per day. He quit smoking about 17 years ago. March 06: This morning, the patient says he is feeling a bit better, but is still having fairly significant epigastric pain. He rates his pain as an 8 out of 10. He is getting a bit anxious waiting for more pain medicine. He denies feeling tremulous and denies that he feels like he really needs a drink. He says he is very hungry and would like to eat something. He otherwise denies fever or chills, headaches or dizziness, chest pain or shortness of breath, nausea or vomiting, diarrhea or constipation, dysuria. This afternoon, he became more agitated, and apparently pulled out his IV, and demanded to leave. Nursing staff talked with him and calmed him down, and we also called his POA to come in. It was explained to him that if he went home and ate, that his pancreatitis and abdominal pain would likely get worse, and he would have to come back. He eventually calmed down and agreed to stay. It would appear that he may have early alcohol withdrawal contributing to his anxiety. March 07: Overnight, the patient has become progressively more confused and agitated. He had to be placed in 4 point restraints, as he can be quite violent when he first awakens. He has pulled out lines several times, and tried to pull out his Ramirez catheter. This morning, he is fairly sedated with Ativan. He opens his eyes and tries to answer questions, but speech is mostly unintelligible. Shortly after my exam, he again became more agitated and combative, and had to be given more sedation. He has been running a low-grade fever of 99.3. He is intermittently tachycardic and tachypneic. He is maintaining O2 saturations just fine. His significant other is questioning why, if his alcohol withdrawal is so intense, white at the [facility] discharge him when he went in for detox, after just 2 days. March 08 Patient seen examined, plan of care reviewed with the staff. Patient obtunded this AM but wakes up intermittently with agitation and wants to rip out his lines and monitoring leads. The patient intermittently abusive. He is presently on an Ativan drip at 12-14mg/ hr with iv prn ativan. It seems that there might be a shortage of IV ativan, therefore we will switch to IV valium scheduled and continue to use IV ativan q2hrs prn as per eleazar. I have also added low dose haldol to help with the agitation 2mg q4 hrs. STarted on IV thiamine 100mg qd x 3 days. The patient has low grade temp but otherwise is hemodynamically stable. March 09: Overnight, the patient was switched from an Ativan drip to scheduled IV Valium. He had a relatively, calmer night but did exhibit some bradycardia during the night down into the 30s. 2 doses of Valium were held due to bradycardia. He was then given 1 dose of Haldol and 1 dose of Ativan to help manage agitation. He continues in 4 point restraints and mitts. He did have a low-grade temperature of 100.3. This morning he continues to be quite groggy. He is unable to wake up enough to give me a review of systems. March 10: This morning, the patient remained quite sedated. He is still receiving intermittent IV Ativan, as he tends to be quite violent when he wakes up, and continues to have high CIWA scores. Later this morning, he was allowed to wake up more, and nurses told him that if he would start being violent and uncooperative, that they would let him get out of bed. He is now sitting up in a chair, and all restraints are removed. He is still extremely groggy, and is complaining that he needs to urinate, although he has a Ramirez catheter in place. He really is not able to give much of a history otherwise, due to sedation. March 11: The patient was fairly calm and cooperative all night last night. He was given Dilaudid once or twice for restlessness. He was not given any Valium since yesterday morning. He still fairly groggy this morning, and confused at times. He knows his name and where he is, but not the year etc. He is still very impulsive according to the nurses, and will try to pull lines and such out. He is no longer restrained. He is currently on max 2 person assist to get him up and out of bed and over to the chair. He does not seem to want to stand up completely straight. He has been asking to use his phone this morning. He says he is willing to eat breakfast. T-max overnight was 100.9, and is now 98. Her pressures continue to run a bit on the high side. Platelet count has been low, but is stable. GGT continues to run high, but amylase and lipase are back to normal. He is difficult to get a history out of this morning. He says yes when asked if he is in pain, but is unable to articulate where. He seems to deny chest pain or trouble breathing, nausea or vomiting or diarrhea. He has been asking the nurses to "leave me alone" March 12: The patient continues to have restless nights, and pulled out IVs, etc. This morning he is a bit calmer. He is sitting up in a chair, and is more or less feeding himself his breakfast. He continues a bit somnolent. Nurses note he is easily irritated, and well often tell them to stop touching him. He insists he is going home today, although it is not clear that he is not still hallucinating at times. He did have a temperature of 102.2 overnight. He is certainly at risk for aspiration pneumonia given his altered mental status. Nurses say he is eating pretty well, and is taking all supplements offered by the dietitian. Today, he says he is not having pain. He denies chest pain or palpitations or shortness of breath, abdominal pain, nausea or vomiting, diarrhea or constipation or dysuria. - Constitutional Vitals: Vital Signs Temp Pulse Resp BP Pulse Ox 99.8 F H 72 18 151/91 92 03/12/17 04:15 03/12/17 03:01 03/12/17 03:01 03/12/17 03:01 03/12/17 03:01 Period Temp Pulse Resp BP Sys/Rosado Pulse Ox Last 24 Hr 97.6 F-102.2 F 72-89 15-18 113-168/77-94 92-95 Intake and Output 03/11/17 03/12/17 03/12/17 21:59 05:59 13:59 Intake Total 490 / 490 887 / 887 Output Total 250 / 250 979 / 979 800 / 800 Balance 240 / 240 -92 / -92 -800 / -800 Weight 201 lb 9.6 oz Intake & Output: Intake & Output 03/11/17 03/12/17 03/12/17 21:59 05:59 13:59 Intake Total 490 / 490 887 / 887 Output Total 250 / 250 979 / 979 800 / 800 Balance 240 / 240 -92 / -92 -800 / -800 Weight 201 lb 9.6 oz Intake: IV 767 / 767 Sodium Chloride 0.9% 1,000 ml @ 767 / 767 100 mls/hr IV Q10H [facility] Rx#: [id number] Oral 490 / 490 120 / 120 Output: Void Amount 100 / 100 975 / 975 800 / 800 # of times incontinent of urine 4 / 4 Stool 150 / 150 Other: Meal Dinner Percent of Meal Consumed 50% Feeding Ability Needs Supervision # Voids 1 # Bowel Movements 1 T-max 102.2, currently 98.4. Heart rate 72. Blood pressure 149/88. O2 saturation 95-100% on room air. Patient is sitting in a chair, and a little more alert than yesterday morning. Speech is rather difficult to interpret. Neck is supple without obvious lymphadenopathy or JVD. Cardiac exam shows regular rate and rhythm. Lung exam shows scattered crackles, without wheezes or rhonchi. Abdomen is soft and nontender. Bowel sounds are active. Extremities show no significant edema. Neurologic exam: Patient remains rather groggy, and does not seem to reliably answer questions. Exam is otherwise grossly nonfocal. Medical - PN: Obj Da - Labs CBC & Chem 7: 03/12/17 04:12 03/12/17 04:00 Labs: Abnormal Lab Results 03/12/17 03/12/17 03/11/17 04:12 04:00 03:45 RBC 3.08 L Hgb 10.5 L Hct 30.4 L MCH 34.2 H Plt Count 128 L Gran % 79.5 H Lymph % (Auto) 6.5 L [place] % (Auto) 12.9 H Lymph # (Auto) 0.4 L BUN 3 L 3 L Creatinine 0.5 L 0.4 L Glucose 140 H 110 H Calcium 8.1 L 8.4 L Phosphorus 2.3 L GGT 142 H 171 H Total Protein 5.6 L 5.8 L Albumin 2.4 L 2.5 L Albumin/Globulin Ratio 0.8 L 0.8 L 03/11/17 03/10/17 03/10/17 03:45 04:10 04:10 RBC 3.41 L 3.39 L Hgb 11.5 L 11.5 L Hct 33.7 L 33.3 L MCH Plt Count 104 L 103 L Gran % Lymph % (Auto) 10.9 L 7.6 L [place] % (Auto) 15.4 H 13.0 H Lymph # (Auto) 0.5 L 0.5 L BUN 2 L Creatinine 0.5 L Glucose Calcium 8.1 L Phosphorus GGT 171 H Total Protein 5.8 L Albumin 2.8 L Albumin/Globulin Ratio 0.9 L March 12: Urinalysis: Shows 15 ketones, negative nitrites, negative leukocyte esterase. Chest x-ray: Shows small patchy bibasilar infiltrates versus atelectasis, with some slight progression. Tiny bilateral pleural effusions are noted. March 10: Lipase is normal at 45. Amylase is normal at 63. March 09: Chest x-ray shows minor bibasilar atelectasis. March 08: Heparin dependent antibodies: Pending March 05: MRSA screen is negative. Blood cultures are negative so far. Urinalysis: Is essentially normal. CBC: Differential shows a granulocyte count of 8700. Lymphocyte count is only 400. Anion gap is elevated at 17 calcium is low at 8.1. AST elevated at 65 ALT elevated at 48. Lipase is elevated at 866. Amylase elevated at 393. Alcohol level is elevated at 0.021. Chest x-ray: Minor left basilar atelectasis. No evidence of free air. Abdominal CT: Fatty liver change. Moderate inflammatory changes in the peripancreatic fat compatible with pancreatitis. No sign of necrosis, abscess, hemorrhage. Possible 10 cm collection of free air in the anterior mesenteric cavity. Follow-up x-ray is reported as showing no signs of free air. February 18, 2016: Screening hepatitis panel was negative. Meds: Medications Bisacodyl (Dulcolax) 10 mg [place] DAILYP PRN PRN Reason: Constipation Clonidine HCl (Catapres) 0.1 mg PO Q4HP PRN PRN Reason: Alcohol Withdrawal Last Admin: 03/12/17 09:01 Dose: 0.1 mg Diazepam (Valium) 2 - 10 mg IV Q2HP PRN PRN Reason: Alcohol Withdrawal Docusate Sodium (Colace) 100 mg PO BID PRN PRN Reason: Constipation Last Admin: 03/12/17 09:01 Dose: 100 mg Folic Acid (Folic Acid) 1 mg PO DAILY GARCÍA Last Admin: 03/12/17 09:00 Dose: 1 mg Fondaparinux (Arixtra) 2.5 mg SQ DAILY GARCÍA Last Admin: 03/12/17 09:00 Dose: 2.5 mg Hydromorphone HCl (Dilaudid) 1 mg IV Q2HP PRN PRN Reason: Pain Last Admin: 03/12/17 02:42 Dose: 1 mg Sodium Chloride (Sodium Chloride 0.9%) 1,000 mls @ 100 mls/hr IV Q10H G[facility] Last Admin: 03/12/17 08:30 Dose: 100 mls/hr Acetaminophen (Ofirmev) 650 mg in 65 mls @ 130 mls/hr IV Q6HP PRN PRN Reason: PAIN/FEVER > 101 Last Admin: 03/12/17 03:30 Dose: 130 mls/hr Potassium Chloride 20 meq/Magnesium Sulfate 16.24 meq/Thiamine HCl 100 mg/ Multivitamins/Minerals 10 ml/Sodium Chloride 1,025 mls @ 100 mls/hr IV Q24H [facility] Last Admin: 03/11/17 11:41 Dose: 100 mls/hr Piperacillin Sod/Tazobactam (Sod 3.375 gm/ Dextrose) 50 mls @ 100 mls/hr IV Q8H [facility] Last Admin: 03/12/17 09:00 Dose: 100 mls/hr Lorazepam (Ativan) 0 mg IV Q2HP PRN; Protocol PRN Reason: Alcohol Withdrawal Last Admin: 03/12/17 05:30 Dose: 2 mg Magnesium Hydroxide (Milk Of Magnesia) 30 ml PO DAILYP PRN PRN Reason: Constipation Naloxone HCl (Narcan) 0.1 mg IV Q2MIN PRN PRN Reason: Opiate Reversal Omeprazole (Prilosec) 20 mg PO ACB [facility] Last Admin: 03/12/17 09:00 Dose: 20 mg Ondansetron HCl (Zofran) 4 mg IV Q4HP PRN PRN Reason: Nausea And Vomiting Pantoprazole Sodium (Protonix) 40 mg IV QAMAC [facility] Last Admin: 03/12/17 09:12 Dose: Not Given Sodium Chloride (Saline Flush) 10 ml IV Q8 [facility] Last Admin: 03/12/17 05:35 Dose: Not Given Sodium Chloride (Saline Flush) 10 ml IV Q8 [facility] Last Admin: 03/12/17 05:36 Dose: Not Given Medical - PN: A/P - Time Spent With Patient Total time spent is greater than 50% in coordination of care (as documented) at patient's floor/unit and/or counseling patient: 25 - 35 minutes (1) Pancreatitis, alcoholic, acute Status: Acute Current Visit: No (2) Alcohol withdrawal delirium, acute, hyperactive Status: Acute Current Visit: Yes - Narrative A/P Narrative: A/P Narrative: #8. Pulmonary/infectious disease. He was febrile overnight. Today's chest x-ray is more suggestive of aspiration pneumonia. IV Zosyn was added. Pulmonary toilet, albuterol nebs, oxygen as needed. Continue to work with him on incentive spirometry, deep breathing and cough. #1. GI. -Patient presents with signs and symptoms of acute, worsening, alcohol induced pancreatitis. Lipase is back to normal. Patient does not appear to have any abdominal tenderness, so I suspect pancreatitis has resolved. He is now eating a soft diet, and so far seems to be tolerating that, although he does not have much of an appetite. -History of GERD. On IV Protonix. 2. alcohol withdrawal/ Delirium Tremens -The worst of his withdrawal symptoms seem to be over, but he remains quite groggy. I suspect it is just taking him along time to metabolize all of the drugs he is received over the last several days. We will continue with supportive care, and hopes that he gradually wakes up. He is a bit on the irritable side, but is otherwise much more cooperative than a couple of days ago. Continue to monitor his CIWA scores closely. He is fairly high risk for impulsive behavior, including removing IVs, etc. [facility] if [facility] chooses to [facility]. -He seems more alert today, but continues to be impulsive, and confused at times. He will need continued close monitoring. He is starting to talk about wanting to go home, but so far is not seem strong enough to ambulate safely. Physical therapy will continue to work with him. I expect his strength will improve quickly over the next couple of days, and he may be able to return home , or he may need short-term skilled rehab. Change IV multivitamins, thiamine, folate to p.o.. 3. CODE STATUS: Full code. He would like his significant other, Jaci Virk , to act as his POA. He is not sure if he is ever put that in writing. 4. DVT prophylaxis: Subcu arixtra. Heparin discontinued due to decline in his platelet count. Antibodies are negative.. Platelet count slightly improved today. 5. Psychiatric. Reported history of PTSD. - this may need further follow-up, to see if he needs psychiatric medications. He may be self-medicating with alcohol. 6. Thrombocytopenia: Steady drop of platelet counts, Heparin was discontinued, and patient was started on arixtra for DVT prophylaxis , HIT workup sent. Heparin antibodies were negative. Platelets have been fairly stable, without signs of bleeding. 7:. Hypophosphatemia: replace po. Approximately 30 minutes was spent today, reviewing the patient's test results, reviewing his case at our team meeting, interviewing and examining him, and writing orders. Medical - PN: Qual - VTE Deep Vein Thrombosis/Pulmonary Embolism Present on Admission: No
[2017-03-12] MEDS ORDERED: ALBUTEROL SULFATE 2.5 MG/3 ML NEBULIZER NEB SCH (15:00)
[2017-03-12] MEDS: POTASSIUM CHLORIDE 20 MEQ, MAGNESIUM SULFATE 16.24 MEQ, THIAMINE 100 MG, MVI, ADULT NO.... IV SCH (16:09)
[2017-03-12] MEDS ORDERED: DOCUSATE SODIUM 100 MG CAPSULE PO PRN (20:14)
[2017-03-12] MEDS ORDERED: BISACODYL 10 MG SUPP.RECT PR PRN (20:14)
[2017-03-12] MEDS ORDERED: MAGNESIUM HYDROXIDE 30 ML ORAL.SUSP PO PRN (20:14)
[2017-03-12] MEDS ORDERED: ACETAMINOPHEN 650 MG/65 ML BOTTLE IV PRN (20:14)
[2017-03-12] MEDS ORDERED: NALOXONE HCL 0.4 MG/ML VIAL IV PRN (20:14)
[2017-03-12] MEDS ORDERED: ONDANSETRON 4 MG/2 ML VIAL IV PRN (20:14)
[2017-03-12] MEDS ORDERED: NEUTRA PHOS 1 PACKET PO SCH (21:00)
[2017-03-12] MEDS: NEUTRA PHOS 1 PACKET PO SCH (21:35)
[2017-03-12] MEDS: ALBUTEROL SULFATE 2.5 MG/3 ML NEBULIZER NEB SCH (21:40)
[2017-03-12] MEDS ORDERED: 0.9 % SODIUM CHLORIDE 10 ML SYRINGE IV SCH (22:00)
[2017-03-13] MEDS: HYDROmorphone 2 MG/ML SYRINGE IV PRN ×4 (01:55→23:34)
[2017-03-13] MEDS: LORazepam 2 MG/ML VIAL IV PRN ×2 (03:00→03:09)
[2017-03-13] MEDS ORDERED: DIAZEPAM 10 MG/2 ML SYRINGE ONE ×2 (04:03→04:53)
[2017-03-13] MEDS: DIAZEPAM 10 MG/2 ML SYRINGE IV PRN ×2 (04:19→15:26)
[2017-03-13] MEDS: 0.9 % SODIUM CHLORIDE 10 ML SYRINGE IV SCH ×4 (05:11→21:35)
[2017-03-13] MEDS: cloNIDine HCL 0.1 MG TABLET PO PRN (05:14)
[2017-03-13] MEDS: PIPERACILLIN SODIUM/TAZOBACTAM 3.375 GM in DEXTROSE 5% IN WATER 50 ML IV SCH ×3 (05:50→21:35)
[2017-03-13] MEDS: MULTIVIT,THER IRON,CA,FA & MIN 1 TABLET PO SCH (08:17)
[2017-03-13] MEDS: FOLIC ACID 1 MG TABLET PO SCH (08:17)
[2017-03-13] MEDS: THIAMINE 100 MG TABLET PO SCH (08:18)
[2017-03-13] MEDS: NEUTRA PHOS 1 PACKET PO SCH ×2 (08:18→21:35)
[2017-03-13] MEDS: OMEPRAZOLE 20 MG CAPSULE PO SCH (08:18)
[2017-03-13] MEDS ORDERED: THIAMINE 100 MG TABLET PO SCH (09:00)
[2017-03-13] MEDS ORDERED: MULTIVIT,THER IRON,CA,FA & MIN 1 TABLET PO SCH (09:00)
[2017-03-13] MEDS ORDERED: FONDAPARINUX SODIUM 2.5 MG/0.5 ML SYRINGE SQ SCH (09:00)
[2017-03-13] MEDS: ALBUTEROL SULFATE 2.5 MG/3 ML NEBULIZER NEB SCH ×3 (10:05→21:17)
[2017-03-13] MEDS ORDERED: DIAZEPAM 10 MG/2 ML SYRINGE IV PRN (15:37)
[2017-03-13] MEDS ORDERED: DIAZEPAM 10 MG/2 ML SYRINGE IV ONE (15:37)
[2017-03-13] MEDS: LIPASE/PROTEASE/AMYLASE 1 CAP CAPSULE PO SCH (16:58)
--- NOTE | 2017-03-13 21:04 | Internal Med Progress Note ---
Medical - PN: Subj Patient information: Note initiated : 03/13/17 at 8:41 pm Service Date, if different from initiated Date: [] Patient: Miquel Quinn 66 y/o M admitted on 03/05/17 for Abdominal Pain/ Alcohol induced Pancreatitis. Chief Complaint: [] Interval history: March 05, 2017: History of present illness: Mr. Quinn is a 66 year old man with a history of alcohol abuse and previous pancreatitis. He presented to the emergency room this morning complaining of increased abdominal pain. He was hydrated and given oral pain meds and sent home. He returned this afternoon with increasing abdominal pain and inability to tolerate p.o. ER evaluation showed elevated amylase and lipase. Patient is also tremulous, and reports that he has been trying to cut down on his drinking. He reports that he started having epigastric abdominal pain about 2 days ago. His pain is very similar previous episodes of pancreatitis. He says he has been a little bit nauseated, and has had mildly blurry vision. He denies fever or chills, headaches, new ear symptoms, sore throat, chest pain or palpitations , shortness of breath or cough. He has not had vomiting, diarrhea, constipation , or dysuria. He reports that he previously drank about 24-30 cans of beer per day. He says over the last few months he has gradually cut down to about 6 beers per day. He quit smoking about 17 years ago. March 06: This morning, the patient says he is feeling a bit better, but is still having fairly significant epigastric pain. He rates his pain as an 8 out of 10. He is getting a bit anxious waiting for more pain medicine. He denies feeling tremulous and denies that he feels like he really needs a drink. He says he is very hungry and would like to eat something. He otherwise denies fever or chills, headaches or dizziness, chest pain or shortness of breath, nausea or vomiting, diarrhea or constipation, dysuria. This afternoon, he became more agitated, and apparently pulled out his IV, and demanded to leave. Nursing staff talked with him and calmed him down, and we also called his POA to come in. It was explained to him that if he went home and ate, that his pancreatitis and abdominal pain would likely get worse, and he would have to come back. He eventually calmed down and agreed to stay. It would appear that he may have early alcohol withdrawal contributing to his anxiety. March 07: Overnight, the patient has become progressively more confused and agitated. He had to be placed in 4 point restraints, as he can be quite violent when he first awakens. He has pulled out lines several times, and tried to pull out his Ramirez catheter. This morning, he is fairly sedated with Ativan. He opens his eyes and tries to answer questions, but speech is mostly unintelligible. Shortly after my exam, he again became more agitated and combative, and had to be given more sedation. He has been running a low-grade fever of 99.3. He is intermittently tachycardic and tachypneic. He is maintaining O2 saturations just fine. His significant other is questioning why, if his alcohol withdrawal is so intense, [place] at the [place] discharge him when he went in for detox, after just 2 days. March 08 Patient seen examined, plan of care reviewed with the staff. Patient obtunded this AM but wakes up intermittently with agitation and wants to rip out his lines and monitoring leads. The patient intermittently abusive. He is presently on an Ativan drip at 12-14mg/ hr with iv prn ativan. It seems that there might be a shortage of IV ativan, therefore we will switch to IV valium scheduled and continue to use IV ativan q2hrs prn as per eleazar. I have also added low dose haldol to help with the agitation 2mg q4 hrs. STarted on IV thiamine 100mg qd x 3 days. The patient has low grade temp but otherwise is hemodynamically stable. March 09: Overnight, the patient was switched from an Ativan drip to scheduled IV Valium. He had a relatively, calmer night but did exhibit some bradycardia during the night down into the 30s. 2 doses of Valium were held due to bradycardia. He was then given 1 dose of Haldol and 1 dose of Ativan to help manage agitation. He continues in 4 point restraints and mitts. He did have a low-grade temperature of 100.3. This morning he continues to be quite groggy. He is unable to wake up enough to give me a review of systems. March 10: This morning, the patient remained quite sedated. He is still receiving intermittent IV Ativan, as he tends to be quite violent when he wakes up, and continues to have high CIWA scores. Later this morning, he was allowed to wake up more, and nurses told him that if he would start being violent and uncooperative, that they would let him get out of bed. He is now sitting up in a chair, and all restraints are removed. He is still extremely groggy, and is complaining that he needs to urinate, although he has a Ramirez catheter in place. He really is not able to give much of a history otherwise, due to sedation. March 11: The patient was fairly calm and cooperative all night last night. He was given Dilaudid once or twice for restlessness. He was not given any Valium since yesterday morning. He still fairly groggy this morning, and confused at times. He knows his name and where he is, but not the year etc. He is still very impulsive according to the nurses, and will try to pull lines and such out. He is no longer restrained. He is currently on max 2 person assist to get him up and out of bed and over to the chair. He does not seem to want to stand up completely straight. He has been asking to use his phone this morning. He says he is willing to eat breakfast. T-max overnight was 100.9, and is now 98. Her pressures continue to run a bit on the high side. Platelet count has been low, but is stable. GGT continues to run high, but amylase and lipase are back to normal. He is difficult to get a history out of this morning. He says yes when asked if he is in pain, but is unable to articulate where. He seems to deny chest pain or trouble breathing, nausea or vomiting or diarrhea. He has been asking the nurses to "leave me alone" March 12: The patient continues to have restless nights, and pulled out IVs, etc. This morning he is a bit calmer. He is sitting up in a chair, and is more or less feeding himself his breakfast. He continues a bit somnolent. Nurses note he is easily irritated, and well often tell them to stop touching him. He insists he is going home today, although it is not clear that he is not still hallucinating at times. He did have a temperature of 102.2 overnight. He is certainly at risk for aspiration pneumonia given his altered mental status. Nurses say he is eating pretty well, and is taking all supplements offered by the dietitian. Today, he says he is not having pain. He denies chest pain or palpitations or shortness of breath, abdominal pain, nausea or vomiting, diarrhea or constipation or dysuria. March 13: Patient became agitated this morning at 0200 requesting to leave the hospital to go buy beer. Ativan had no effect. He calmed down after receiving a total of 10 mg of diazepam. Today, when I initially saw him he reflection on the incident and stated he wanted to stay in hospital until he was better. After his girlfriend visited, he insisted that he was leaving making violent threats to the staff that he would "stab them in the throat" if they did not get out of his way. The police were called as he was actively leaving the building, trying to get out of the door to dialysis and refused to participate in a capacity evaluation. He finally returned to his room and did answer questions to assess his capacity. He DOES NOT HAVE CAPACITY at this time, stating that he plans to walk to his trailer home and senior supplier quality engineer the [employer]. He is unable to tell me what his medical conditions are, how they've been treated and the risks of not following through with that treatment. I spoke with his surrogate, his girlfriend, in person and she consents to keeping him in the hospital for further treatment. He eventually calmed down with 5mg of IV Valium and PRN Valium was ordered for agitation. He is having some epigastric pain with eating. He would like to try pancreatic enzymes as they have been helpful in the past. Pertinent ROS: no fever or cp - Constitutional Vitals: Vital Signs Temp Pulse Resp BP Pulse Ox 98.2 F 72 18 132/78 96 03/13/17 18:45 03/13/17 18:45 03/13/17 18:45 03/13/17 18:45 03/13/17 18:45 Period Temp Pulse Resp BP Sys/Rosado Pulse Ox Last 24 Hr 98 F-98.5 F 55-76 12-19 128-167/74-90 91-96 Intake and Output 03/13/17 03/13/17 03/13/17 05:59 13:59 21:59 Intake Total 650 / 650 50 / 50 550 / 550 Output Total 201 / 201 200 / 200 Balance 449 / 449 -150 / -150 549 / 549 Weight 195 lb Patient Weight 03/14/17 05:59 Weight 195 lb General: My initial evaluation he is calm and alert. He is oriented 3. He is soft-spoken. CV: Regular rate and rhythm. No murmurs. Pulmonary: Lungs are clear to auscultation bilaterally. Abdomen: Soft, mild epigastric tenderness. Positive bowel tones. Extremities: No clubbing, cyanosis or edema. Neuro: Alert and oriented 3. Somewhat tangential speech. Difficult to redirect. Poor insight Intake & Output: Intake & Output 03/13/17 03/13/17 03/13/17 05:59 13:59 21:59 Intake Total 650 / 650 50 / 50 550 / 550 Output Total 201 / 201 200 / 200 Balance 449 / 449 -150 / -150 549 / 549 Weight 195 lb Intake: IV 50 / 50 50 / 50 50 / 50 Zosyn 3.375 gm In Dextrose 5% 50 / 50 50 / 50 50 / 50 in Water 50 ml @ 100 mls/hr IV Q8H [facility] Rx#:[id number] Oral 600 / 600 500 / 500 Output: Void Amount 200 / 200 200 / 200 # of times incontinent of urine Other: Meal Dinner Percent of Meal Consumed 75% # Voids 1 1 # Bowel Movements 1 1 Medical - PN: Obj Da - Labs CBC & Chem 7: 03/12/17 04:12 03/12/17 04:00 Labs: Abnormal Lab Results 03/12/17 03/12/17 03/11/17 04:12 04:00 03:45 RBC 3.08 L Hgb 10.5 L Hct 30.4 L MCH 34.2 H Plt Count 128 L Gran % 79.5 H Lymph % (Auto) 6.5 L Wake % (Auto) 12.9 H Lymph # (Auto) 0.4 L BUN 3 L 3 L Creatinine 0.5 L 0.4 L Glucose 140 H 110 H Calcium 8.1 L 8.4 L Phosphorus 2.3 L GGT 142 H 171 H Total Protein 5.6 L 5.8 L Albumin 2.4 L 2.5 L Albumin/Globulin Ratio 0.8 L 0.8 L 03/11/17 03:45 RBC 3.41 L Hgb 11.5 L Hct 33.7 L MCH Plt Count 104 L Gran % Lymph % (Auto) 10.9 L Wake % (Auto) 15.4 H Lymph # (Auto) 0.5 L BUN Creatinine Glucose Calcium Phosphorus GGT Total Protein Albumin Albumin/Globulin Ratio Meds: Medications Albuterol Sulfate (Ventolin) 2.5 mg NEB TID [facility] Last Admin: 03/13/17 15:36 Dose: Not Given Lipase/Protease/Amylase (Creon) 2 cap PO TIDCC [facility] Last Admin: 03/13/17 16:58 Dose: 2 cap Bisacodyl (Dulcolax) 10 mg ME DAILYP PRN PRN Reason: Constipation Clonidine HCl (Catapres) 0.1 mg PO Q4HP PRN PRN Reason: Alcohol Withdrawal Last Admin: 03/13/17 05:14 Dose: 0.1 mg Diazepam (Valium) 2 - 10 mg IV Q2HP PRN PRN Reason: Sedation Last Admin: 03/13/17 15:26 Dose: 2 mg Diazepam (Valium) 5 mg IV Q3-4HP PRN PRN Reason: Agitation Docusate Sodium (Colace) 100 mg PO BID PRN PRN Reason: Constipation Folic Acid (Folic Acid) 1 mg PO DAILY [facility] Last Admin: 03/13/17 08:17 Dose: 1 mg Fondaparinux (Arixtra) 2.5 mg SQ DAILY [facility] Last Admin: 03/13/17 08:17 Dose: 2.5 mg Hydromorphone HCl (Dilaudid) 1 mg IV Q2HP PRN PRN Reason: Pain Last Admin: 03/13/17 11:07 Dose: 1 mg Acetaminophen (Ofirmev) 650 mg in 65 mls @ 130 mls/hr IV Q6HP PRN PRN Reason: PAIN/FEVER > 101 Piperacillin Sod/Tazobactam (Sod 3.375 gm/ Dextrose) 50 mls @ 100 mls/hr IV Q8H [facility] Last Infusion: 03/13/17 15:00 Dose: Infused Iron Carb/Multivit/Pattern Keeper/Folic Acid (Multivitamin W/Minerals) 1 tab PO DAILY [facility] Last Admin: 03/13/17 08:17 Dose: 1 tab Magnesium Hydroxide (Milk Of Magnesia) 30 ml PO DAILYP PRN PRN Reason: Constipation Naloxone HCl (Narcan) 0.1 mg IV Q2MIN PRN PRN Reason: Opiate Reversal Omeprazole (Prilosec) 20 mg PO ACB [facility] Last Admin: 03/13/17 08:18 Dose: 20 mg Ondansetron HCl (Zofran) 4 mg IV Q4HP PRN PRN Reason: Nausea And Vomiting Potassium/Phosphorus/Sodium (Neutra Phos) 2 packet PO BID [facility] Sodium Chloride (Saline Flush) 10 ml IV Q8 [facility] Last Admin: 03/13/17 15:58 Dose: 10 ml Thiamine HCl (Vitamin B1) 100 mg PO DAILY [facility] Last Admin: 03/13/17 08:18 Dose: 100 mg Medical - PN: A/P - Time Spent With Patient Total time spent is greater than 50% in coordination of care (as documented) at patient's floor/unit and/or counseling patient: - Narrative A/P Narrative: A/P Narrative: #aspiration PNA -fever w progressive infiltrates on CXR -Zosyn started 03/13; will complete 5-7 days of Abx. -on RA. Cont PRN nebs. #Acute encephalopathy/agitation EtOH WD w delirium tremens -improved from previous. Previously on Ativan gtt. Now on PRN Valium -he DOES NOT HAVE CAPACITY and cannot leave AMA. Will reassess daily. -cont thiamin, folate and MVI -Cont CIWA Valium. PRN Valium added for agitation in addition. Will consider trial of po valium tomorrow in preparation for eventual discharge. -Still a fall risk. May need rehab. Inga D/C'd 03/12 -CM following. Can get into [place] rehab program if pt calls to initiate, which he is willing to do. #EtOH pancreatitis -pt reports prior hx -on regular diet -poor po intake d/t prandial pain; will start pancreatic enzymes. #Thrombocytopenia: Steady drop of platelet counts, likely 2/2 acute illness with possible EtOH toxicity Heparin was discontinued, and patient was started on arixtra for DVT prophylaxis , HIT workup neg. Resume heparin. Monitor platelets. #PTSD--will need OP f/u. He may have been self-medicating w EtOH # Hypophosphatemia: replace po. #h/o GERD--cont omeprazole #DVT prophylaxis: Subcu arixtra. Heparin discontinued due to decline in his platelet count. Antibodies are negative so will resume heparin. # CODE STATUS: Full code. He would like his significant other, Jaci Virk, to act as his POA. He is not sure if he is ever put that in writing. I spent 95 minutes with the patient or on the patient's unit, assessing the patient during my first visit and then revisiting him when he wanted to leave AM. Time: [id number]; 15:30-16:30 Medical - PN: Qual - VTE Deep Vein Thrombosis/Pulmonary Embolism Present on Admission: No
[2017-03-14] MEDS: HYDROmorphone 2 MG/ML SYRINGE IV PRN ×4 (04:15→23:12)
[2017-03-14] MEDS: 0.9 % SODIUM CHLORIDE 10 ML SYRINGE IV SCH ×4 (04:16→21:55)
[2017-03-14] MEDS: PIPERACILLIN SODIUM/TAZOBACTAM 3.375 GM in DEXTROSE 5% IN WATER 50 ML IV SCH ×3 (05:37→21:54)
[2017-03-14] MEDS ORDERED: ALBUTEROL SULFATE 2.5 MG/3 ML NEBULIZER NEB PRN (07:18)
[2017-03-14] MEDS: FOLIC ACID 1 MG TABLET PO SCH (08:16)
[2017-03-14] MEDS: OMEPRAZOLE 20 MG CAPSULE PO SCH (08:16)
[2017-03-14] MEDS: LIPASE/PROTEASE/AMYLASE 1 CAP CAPSULE PO SCH ×3 (08:16→16:42)
[2017-03-14] MEDS: amLODIPine 5 MG TABLET PO SCH (08:17)
[2017-03-14] MEDS: MULTIVIT,THER IRON,CA,FA & MIN 1 TABLET PO SCH (08:17)
[2017-03-14] MEDS: NEUTRA PHOS 1 PACKET PO SCH ×2 (08:17→20:26)
[2017-03-14] MEDS: HEPARIN 5,000 UNIT/ML VIAL SQ SCH ×2 (08:17→20:26)
[2017-03-14] MEDS: THIAMINE 100 MG TABLET PO SCH (08:18)
[2017-03-14] MEDS: DIAZEPAM 5 MG TABLET PO PRN ×2 (11:38→20:27)
--- NOTE | 2017-03-14 16:13 | Internal Med Progress Note ---
Medical - PN: Subj Patient information: Note initiated : 03/14/17 at 4:09 pm Service Date, if different from initiated Date: [] Patient: Miquel Quinn 66 y/o M admitted on 03/05/17 for Abdominal Pain/ Alcohol induced Pancreatitis. Chief Complaint: [] Interval history: March 05, 2017: History of present illness: Mr. Quinn is a 66 year old man with a history of alcohol abuse and previous pancreatitis. He presented to the emergency room this morning complaining of increased abdominal pain. He was hydrated and given oral pain meds and sent home. He returned this afternoon with increasing abdominal pain and inability to tolerate p.o. ER evaluation showed elevated amylase and lipase. Patient is also tremulous, and reports that he has been trying to cut down on his drinking. He reports that he started having epigastric abdominal pain about 2 days ago. His pain is very similar previous episodes of pancreatitis. He says he has been a little bit nauseated, and has had mildly blurry vision. He denies fever or chills, headaches, new ear symptoms, sore throat, chest pain or palpitations , shortness of breath or cough. He has not had vomiting, diarrhea, constipation , or dysuria. He reports that he previously drank about 24-30 cans of beer per day. He says over the last few months he has gradually cut down to about 6 beers per day. He quit smoking about 17 years ago. March 06: This morning, the patient says he is feeling a bit better, but is still having fairly significant epigastric pain. He rates his pain as an 8 out of 10. He is getting a bit anxious waiting for more pain medicine. He denies feeling tremulous and denies that he feels like he really needs a drink. He says he is very hungry and would like to eat something. He otherwise denies fever or chills, headaches or dizziness, chest pain or shortness of breath, nausea or vomiting, diarrhea or constipation, dysuria. This afternoon, he became more agitated, and apparently pulled out his IV, and demanded to leave. Nursing staff talked with him and calmed him down, and we also called his POA to come in. It was explained to him that if he went home and ate, that his pancreatitis and abdominal pain would likely get worse, and he would have to come back. He eventually calmed down and agreed to stay. It would appear that he may have early alcohol withdrawal contributing to his anxiety. March 07: Overnight, the patient has become progressively more confused and agitated. He had to be placed in 4 point restraints, as he can be quite violent when he first awakens. He has pulled out lines several times, and tried to pull out his Ramirez catheter. This morning, he is fairly sedated with Ativan. He opens his eyes and tries to answer questions, but speech is mostly unintelligible. Shortly after my exam, he again became more agitated and combative, and had to be given more sedation. He has been running a low-grade fever of 99.3. He is intermittently tachycardic and tachypneic. He is maintaining O2 saturations just fine. His significant other is questioning why, if his alcohol withdrawal is so intense, white at the [facility] discharge him when he went in for detox, after just 2 days. March 08 Patient seen examined, plan of care reviewed with the staff. Patient obtunded this AM but wakes up intermittently with agitation and wants to rip out his lines and monitoring leads. The patient intermittently abusive. He is presently on an Ativan drip at 12-14mg/ hr with iv prn ativan. It seems that there might be a shortage of IV ativan, therefore we will switch to IV valium scheduled and continue to use IV ativan q2hrs prn as per eleazar. I have also added low dose haldol to help with the agitation 2mg q4 hrs. STarted on IV thiamine 100mg qd x 3 days. The patient has low grade temp but otherwise is hemodynamically stable. March 09: Overnight, the patient was switched from an Ativan drip to scheduled IV Valium. He had a relatively, calmer night but did exhibit some bradycardia during the night down into the 30s. 2 doses of Valium were held due to bradycardia. He was then given 1 dose of Haldol and 1 dose of Ativan to help manage agitation. He continues in 4 point restraints and mitts. He did have a low-grade temperature of 100.3. This morning he continues to be quite groggy. He is unable to wake up enough to give me a review of systems. March 10: This morning, the patient remained quite sedated. He is still receiving intermittent IV Ativan, as he tends to be quite violent when he wakes up, and continues to have high CIWA scores. Later this morning, he was allowed to wake up more, and nurses told him that if he would start being violent and uncooperative, that they would let him get out of bed. He is now sitting up in a chair, and all restraints are removed. He is still extremely groggy, and is complaining that he needs to urinate, although he has a Ramirez catheter in place. He really is not able to give much of a history otherwise, due to sedation. March 11: The patient was fairly calm and cooperative all night last night. He was given Dilaudid once or twice for restlessness. He was not given any Valium since yesterday morning. He still fairly groggy this morning, and confused at times. He knows his name and where he is, but not the year etc. He is still very impulsive according to the nurses, and will try to pull lines and such out. He is no longer restrained. He is currently on max 2 person assist to get him up and out of bed and over to the chair. He does not seem to want to stand up completely straight. He has been asking to use his phone this morning. He says he is willing to eat breakfast. T-max overnight was 100.9, and is now 98. Her pressures continue to run a bit on the high side. Platelet count has been low, but is stable. GGT continues to run high, but amylase and lipase are back to normal. He is difficult to get a history out of this morning. He says yes when asked if he is in pain, but is unable to articulate where. He seems to deny chest pain or trouble breathing, nausea or vomiting or diarrhea. He has been asking the nurses to "leave me alone" March 12: The patient continues to have restless nights, and pulled out IVs, etc. This morning he is a bit calmer. He is sitting up in a chair, and is more or less feeding himself his breakfast. He continues a bit somnolent. Nurses note he is easily irritated, and well often tell them to stop touching him. He insists he is going home today, although it is not clear that he is not still hallucinating at times. He did have a temperature of 102.2 overnight. He is certainly at risk for aspiration pneumonia given his altered mental status. Nurses say he is eating pretty well, and is taking all supplements offered by the dietitian. Today, he says he is not having pain. He denies chest pain or palpitations or shortness of breath, abdominal pain, nausea or vomiting, diarrhea or constipation or dysuria. March 13: Patient became agitated this morning at 0200 requesting to leave the hospital to go buy beer. Ativan had no effect. He calmed down after receiving a total of 10 mg of diazepam. Today, when I initially saw him he reflection on the incident and stated he wanted to stay in hospital until he was better. After his girlfriend visited, he insisted that he was leaving making violent threats to the staff that he would "stab them in the throat" if they did not get out of his way. The police were called as he was actively leaving the building, trying to get out of the door to dialysis and refused to participate in a capacity evaluation. He finally returned to his room and did answer questions to assess his capacity. 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 He is unable to tell me what his medical conditions are, how they've been treated and the risks of not following through with that treatment. I spoke with his surrogate, his girlfriend, in person and she consents to keeping him in the hospital for further treatment. He eventually calmed down with 5mg of IV Valium and PRN Valium was ordered for agitation. He is having some epigastric pain with eating. He would like to try pancreatic enzymes as they have been helpful in the past. March 14: Calmer overnight, but continues to become increasingly confused as the night progresses and is impulsive in his actions. He had a sitter at the bedside last night. Pancreatic enzymes have provided good relief with his abdominal pain and he states his appetite is improving. He complains of left foot pain and inflammation after multiple walks today. He has a history of metatarsal fracture in his left foot. He has been mildly hypertensive with borderline bradycardia. I have discontinued his CIWA clonidine and started him on amlodipine. We are transitioning to oral meds and I have started oral Valium and hydrocodone in attempt to wean off IV Valium and Dilaudid. Pertinent ROS: no fever or cp - Constitutional Vitals: Vital Signs Temp Pulse Resp BP Pulse Ox 98.2 F 82 18 147/84 97 03/14/17 12:00 03/14/17 12:00 03/14/17 12:00 03/14/17 12:00 03/14/17 12:00 Period Temp Pulse Resp BP Sys/Rosado Pulse Ox Last 24 Hr 98.2 F-98.5 F 56-82 16-18 132-169/78-93 94-97 Intake and Output 03/14/17 03/14/17 03/14/17 05:59 13:59 21:59 Intake Total 450 / 450 50 / 50 50 / 50 Output Total 250 / 250 Balance 450 / 450 50 / 50 -200 / -200 General: No acute distress CV: Regular rate and rhythm Respiratory: CTA B Abdomen: Soft, nondistended, nontender. Active bowel tones. Extremities: No clubbing or cyanosis. His left foot has hammertoe deformities of his left toes. It is erythematous and warm to the touch. Mild edema. No induration. Neuro: Alert and oriented 3. No focal deficits. Intake & Output: Intake & Output 03/14/17 03/14/17 03/14/17 05:59 13:59 21:59 Intake Total 450 / 450 50 / 50 50 / 50 Output Total 250 / 250 Balance 450 / 450 50 / 50 -200 / -200 Intake: IV 50 / 50 50 / 50 50 / 50 Zosyn 3.375 gm In Dextrose 5% 50 / 50 50 / 50 50 / 50 in Water 50 ml @ 100 mls/hr IV Q8H [facility] Rx#:[id number] Oral 400 / 400 Output: Void Amount 250 / 250 Other: Meal Lunch Percent of Meal Consumed 50% Feeding Ability Independent # Voids 1 3 # Bowel Movements 1 Medical - PN: Obj Da - Labs CBC & Chem 7: 03/12/17 04:12 03/12/17 04:00 Labs: Abnormal Lab Results 03/12/17 03/12/17 04:12 04:00 RBC 3.08 L Hgb 10.5 L Hct 30.4 L MCH 34.2 H Plt Count 128 L Gran % 79.5 H Lymph % (Auto) 6.5 L [place] % (Auto) 12.9 H Lymph # (Auto) 0.4 L BUN 3 L Creatinine 0.5 L Glucose 140 H Calcium 8.1 L Phosphorus 2.3 L GGT 142 H Total Protein 5.6 L Albumin 2.4 L Albumin/Globulin Ratio 0.8 L Meds: Medications Hydrocodone Bitart/Acetaminophen ([place] 7.5/325mg) 1 tab PO Q4HP PRN PRN Reason: Pain Albuterol Sulfate (Ventolin) 2.5 mg NEB Q4HP PRN PRN Reason: Shortness Of Breath Amlodipine Besylate (Norvasc) 5 mg PO DAILY [facility] Last Admin: 03/14/17 08:17 Dose: 5 mg Lipase/Protease/Amylase (Creon) 2 cap PO TIDCC [facility] Last Admin: 03/14/17 11:44 Dose: 2 cap Bisacodyl (Dulcolax) 10 mg VT DAILYP PRN PRN Reason: Constipation Diazepam (Valium) 2 - 10 mg IV Q2HP PRN PRN Reason: Sedation Last Admin: 03/13/17 15:26 Dose: 2 mg Diazepam (Valium) 5 mg IV Q3-4HP PRN PRN Reason: Agitation Diazepam (Valium) 5 mg PO TIDP PRN PRN Reason: Agitation Last Admin: 03/14/17 11:38 Dose: 5 mg Docusate Sodium (Colace) 100 mg PO BID PRN PRN Reason: Constipation Folic Acid (Folic Acid) 1 mg PO DAILY [facility] Last Admin: 03/14/17 08:16 Dose: 1 mg Heparin Sodium (Porcine) (Heparin) 5,000 unit SQ Q12 [facility] Last Admin: 03/14/17 08:17 Dose: 5,000 unit Hydromorphone HCl (Dilaudid) 1 mg IV Q2HP PRN PRN Reason: Pain Last Admin: 03/14/17 14:05 Dose: 1 mg Acetaminophen (Ofirmev) 650 mg in 65 mls @ 130 mls/hr IV Q6HP PRN PRN Reason: PAIN/FEVER > 101 Piperacillin Sod/Tazobactam (Sod 3.375 gm/ Dextrose) 50 mls @ 100 mls/hr IV Q8H [facility] Last Infusion: 03/14/17 14:35 Dose: Infused Iron Carb/Multivit/Chisago/Folic Acid (Multivitamin W/Minerals) 1 tab PO DAILY [facility] Last Admin: 10/01/17 08:17 Dose: 1 tab Magnesium Hydroxide (Milk Of Magnesia) 30 ml PO DAILYP PRN PRN Reason: Constipation Naloxone HCl (Narcan) 0.1 mg IV Q2MIN PRN PRN Reason: Opiate Reversal Naproxen (Naprosyn) 500 mg PO BIDCC [facility] Omeprazole (Prilosec) 20 mg PO ACB [facility] Last Admin: 03/14/17 08:16 Dose: 20 mg Ondansetron HCl (Zofran) 4 mg IV Q4HP PRN PRN Reason: Nausea And Vomiting Potassium/Phosphorus/Sodium (Neutra Phos) 2 packet PO BID [facility] Last Admin: 03/14/17 08:17 Dose: 2 packet Sodium Chloride (Saline Flush) 10 ml IV Q8 [facility] Last Admin: 03/14/17 14:06 Dose: 10 ml Thiamine HCl (Vitamin B1) 100 mg PO DAILY [facility] Last Admin: 03/14/17 08:18 Dose: 100 mg Medical - PN: A/P - Time Spent With Patient Total time spent is greater than 50% in coordination of care (as documented) at patient's floor/unit and/or counseling patient: 25 - 35 minutes - Narrative A/P Narrative: A/P Narrative: #aspiration PNA -fever w progressive infiltrates on CXR -Zosyn started 03/13; will complete 5-7 days of Abx. Consider transitioning to Augmentin/Levaquin tomorrow. -on RA. Cont PRN nebs. #Acute encephalopathy/agitation EtOH WD w delirium tremens -improved from previous. Previously on Ativan gtt. Now on PRN Valium -he DOES NOT HAVE CAPACITY and cannot leave AMA. Will reassess daily. -cont thiamin, folate and MVI -Cont CIWA Valium. PRN Valium added for agitation in addition. Transition to po valium tomorrow in preparation for eventual discharge. -Still a fall risk. May need rehab. Haldol D/C'd 03/12 -CM following. Can get into [facility] rehab program if pt calls to initiate, which he is willing to do. #EtOH pancreatitis -pt reports prior hx -on regular diet -poor po intake d/t prandial pain; improved with pancreatic enzymes. #HTN: DC CIWA clonidine. Start amlodipine. #Thrombocytopenia: Steady drop of platelet counts, likely 2/2 acute illness with possible EtOH toxicity Heparin was discontinued, and patient was started on arixtra for DVT prophylaxis , HIT workup neg. Resumed heparin 03/13. Monitor platelets. #PTSD--will need OP f/u. He may have been self-medicating w EtOH # Hypophosphatemia: replacing po. Trend in AM #h/o GERD--cont omeprazole #DVT prophylaxis: SC heparin # CODE STATUS: Full code. He would like his significant other, Jaci Virk, to act as his POA. He is not sure if he is ever put that in writing. Medical - PN: Qual - VTE Deep Vein Thrombosis/Pulmonary Embolism Present on Admission: No
[2017-03-14] MEDS: NAPROXEN 250 MG TABLET PO SCH (16:42)
[2017-03-14] MEDS: HYDROCODONE/APAP 7.5/325MG TABLET PO PRN ×2 (16:43→20:26)
[2017-03-15] MEDS: HYDROmorphone 2 MG/ML SYRINGE IV PRN (02:39)
[2017-03-15] MEDS: DIAZEPAM 5 MG TABLET PO PRN (04:07)
[2017-03-15 05:38] LABS: Basophils # (Auto) 0 K/mcL (0.0-0.3); Basophils % (Auto) 0.7 % (0.0-2.0); Eosinophils # (Auto) 0.1 K/mcL (0.0-0.7); Eosinophils % (Auto) 3.4 % (0.0-7.0); Lymphocytes # (Auto) 0.7 K/mcL (1.5-4.8); Lymphocytes % (Auto) 16.9 % (15.5-49.0); Mean Cell Volume 99.9 fL (80.0-100.0); Mean Corpuscular HGB Conc 33.3 g/dL (31.0-36.0); Mean Corpuscular Hemoglobin 33.2 pg (26.0-34.0); Monocytes # (Auto) 0.6 K/mcL (0.1-0.9); Platelet Count 232 K/mcL (140-440); RBC 3.61 M/mcL (4.50-5.90); Red Cell Distribution Width 13.5 % (11.5-14.5)
[2017-03-15 06:00] LABS: Albumin 3.2 gm/dL (3.2-5.2); Blood Urea Nitrogen 4 mg/dl (8-23)
[2017-03-15] MEDS: 0.9 % SODIUM CHLORIDE 10 ML SYRINGE IV SCH (06:12)
[2017-03-15] MEDS: PIPERACILLIN SODIUM/TAZOBACTAM 3.375 GM in DEXTROSE 5% IN WATER 50 ML IV SCH (06:12)
[2017-03-15] MEDS: NAPROXEN 250 MG TABLET PO SCH (07:38)
[2017-03-15] MEDS: OMEPRAZOLE 20 MG CAPSULE PO SCH (07:38)
[2017-03-15] MEDS: LIPASE/PROTEASE/AMYLASE 1 CAP CAPSULE PO SCH (07:39)
[2017-03-15] MEDS: HEPARIN 5,000 UNIT/ML VIAL SQ SCH (08:22)
[2017-03-15] MEDS: MULTIVIT,THER IRON,CA,FA & MIN 1 TABLET PO SCH (08:23)
[2017-03-15] MEDS: amLODIPine 5 MG TABLET PO SCH (08:23)
[2017-03-15] MEDS: FOLIC ACID 1 MG TABLET PO SCH (08:23)
[2017-03-15] MEDS: THIAMINE 100 MG TABLET PO SCH (08:23)
[2017-03-15] MEDS: NEUTRA PHOS 1 PACKET PO SCH (08:23)
--- NOTE | 2017-03-15 09:29 | Discharge Summary ---
Medical - DS: Prov Patient information: Note initiated : 03/15/17 at 9:27 am Service Date, if different from initiated Date: [] Patient: Miquel Quinn a 66 y/o M admitted on 03/05/17 for Abdominal Pain/ Alcohol induced Pancreatitis. Follow up issues: 1. Continued alcohol abstinence. Patient is arranging rehab through the [facility]. Recommend psych eval and treat for PTSD as this is likely playing a role in his alcohol abuse. 2. Weaning off Valium 3. Follow up with surgery regarding chronic R foot pain Date of admission: 03/05/17 19:20 Discharge date: 03/15/17 Primary care physician: Ascencion Oviedo Attending physician on admission: Elena Kelly Attending physician on discharge: Ambreen Berman Medical - DS: Meds - Discharge Medications Active and Home Medications: Home Medications Omeprazole 20 mg PO DAILY 03/07/15 [History Confirmed 03/06/17 Last Taken ] Multivit-Min/Iron Fum/Folic AC [Pktms-Cczzknx-Gvhjzgsb Tablet] 1 each PO DAILY 01/20/17 [History Confirmed 03/06/17 Last Taken 03/03/17] Thiamine [Vitamin B1] 100 mg PO DAILY 01/20/17 [History Confirmed 03/06/17 Last Taken 03/04/17] HYDROcodone/APAP 5/325MG [[place] 5/325Mg] 1 tab PO Q4HP PRN #14 tablet 03/05/17 [ Rx Confirmed 03/06/17 Last Taken 03/05/17] Ondansetron HCl [Zofran ODT] 4 mg SL Q4-6HP PRN #10 tablet 03/05/17 [Rx Confirmed 03/06/17 Last Taken 03/05/17] Medical - DS: Hosp Hospital course: Mr. Quinn is a 66 year old M with a history of alcohol abuse and prior alcoholic pancreatitis. He was admitted on 03/05/17 with alcoholic pancreatitis and withdrawal symptoms despite alcohol level of 0.021. He had previously been trying to cut down on his drinking from 30 cans of beer today to about [address] scan was initially concerning for free air; this was not seen on followup xrays and is alcoholic pancreatitis improved with conservative measures ; he required pancreatic enzyme replacement. On hospital day 3, he developed delirium tremens requiring 4-point restraints as he at times was quite violent and agitated. He was treated with an Ativan drip and then switched to IV Valium as there was an Ativan shortage. He was treated with thiamine replacement. He remained quite somnolent until hospital day 6 and then had intermittent confusion, agitation and occasional combative behavior. He responded well to Valium. At one point, he actively tried to leave the hospital despite having no capacity. Police were called as he was threatening staff during his attempt to leave. His mentation gradually improved to today at discharge where he now has capacity and is himself arranging follow-up for alcohol rehabilitation at the [facility] [place]. He does have a history of PTSD and is being discharged on a short course of as-needed Valium. Outpatient psychiatric evaluation and follow-up is recommended as his alcohol use may be some kind of self-medication for his PTSD. He developed fever on hospital day 8 and was started on Zosyn for aspiration pneumonia. This is transitioned to Augmentin and Levaquin for discharge. The patient took multiple walks daily to help calm himself and aggravated old foot injury. This was treated with ice naproxen and hydrocodone. He reports he is arranging follow-up with a foot surgeon in [place] for definitive treatment. He has declined home health services. Discharge diagnosis: alcoholic pancreatitis Secondary discharge diagnosis: Delirium tremens Aspiration pneumonia Thrombocytopenia 2/2 critical illness. HIT negative Right foot pain 2/2 arthritis and overuse Hypophosphatemia - Time Spent with Patient Total time spent providing and/or coordinating discharge services: Greater than 30 minutes Medical - DS: Exam - Constitutional Vitals: Vital Signs Temp Pulse Pulse Resp BP BP Pulse Ox 03/15/17 07:22 57 L 95 03/15/17 06:21 98.1 F 16 149/76 96 03/15/17 04:00 97.8 F 59 L 18 167/94 97 03/14/17 23:49 98.4 F 51 L 16 150/69 95 03/14/17 20:00 97.7 F 69 16 142/86 96 03/14/17 16:00 98.8 F 74 18 139/85 98 03/14/17 12:00 98.2 F 82 18 147/84 97 Intake and Output 03/14/17 03/15/17 03/15/17 21:59 05:59 13:59 Intake Total 50 / 50 350 / 350 50 / 50 Output Total 250 / 250 500 / 500 Balance -200 / -200 -150 / -150 50 / 50 Intake: IV 50 / 50 50 / 50 50 / 50 Zosyn 3.375 gm In Dextrose 5% 50 / 50 50 / 50 50 / 50 in Water 50 ml @ 100 mls/hr IV Q8H [facility] Rx#:[id number] Oral 300 / 300 Output: Void Amount 250 / 250 500 / 500 Other: Meal Breakfast Percent of Meal Consumed 100% Feeding Ability Independent # Voids 3 1 Weight 194 lb General: No acute distress CV: Regular rate and rhythm Respiratory: CTA B Abdomen: Soft, nondistended, nontender. Active bowel tones. Extremities: No clubbing or cyanosis. . Neuro: Alert and oriented 3. No focal deficits. Psych: normal mood and affect. Insight improving Medical - DS: Data Procedures and tests throughout hospitalization: CT abdomen and pelvis 03/05/17 showing moderate simple pancreatitis with moderate free air within the mesenteric cavity of the right upper quadrant adjacent to the liver. Note: Follow-up x-ray shows no evidence of free air. 03/12/17 chest x-ray shows progression of bibasilar infiltrates. Labs on day of discharge: Labs from last 24 hours 03/15/17 03/15/17 04:27 04:27 WBC 4.4 L RBC 3.61 L Hgb 12.0 L Hct 36.0 L MCV 99.9 MCH 33.2 MCHC 33.3 RDW 13.5 Plt Count 232 MPV 9.3 Gran % 66.0 Lymph % (Auto) 16.9 [place] % (Auto) 13.0 H Eos % (Auto) 3.4 Baso % (Auto) 0.7 Gran # 2.9 Lymph # (Auto) 0.7 L [place] # (Auto) 0.6 Eos # (Auto) 0.1 Baso # (Auto) 0 Sodium 139 Potassium 3.4 Chloride 100 Carbon Dioxide 29 Anion Gap 10.0 BUN 4 L Creatinine 0.6 L GFR Calculation 104 Glucose 143 H Calcium 8.8 Phosphorus 3.3 Albumin 3.2 Preliminary micro results at discharge 03/12/17 07:59 Blood Culture - Preliminary Blood 03/12/17 07:40 Blood Culture - Preliminary Blood Medical - DS: A/P - Patient/Caregiver Discharge Instructions Activity: ambulate only with your walker Diet: Low Fat Additional Instructions: 1. Eat a low fat diet for your pancreatitis. Use pancreatic enzymes when eating to treat/prevent abdominal pain. Stay off all alcohol (as you already plan to do ); this is toxic to your liver and pancreas. 2. Follow up with the CT for alcohol rehab. 3. Complete your antibiotics (Levaquin/Augmentin) to treat your pneumonia. 4. If your right foot hurts, rest it, use ice and keep it elevated. 5. Try to decrease your Valium use over the next week. Prescriptions: amLODIPine [Norvasc] 5 mg PO DAILY #30 tab Diazepam [Valium] 5 mg PO BIDP PRN #10 tab PRN Reason: Agitation HYDROcodone/APAP 5/325MG [[place] 5/325Mg] 1 tab PO Q8HP PRN #14 tab PRN Reason: Pain Lipase/Protease/Amylase [Creon] 2 cap PO TIDCC #120 cap Naproxen [Naprosyn] 500 mg PO BIDCC #10 tab - Follow up Plan Follow up with: Ascencion Oviedo ARNP [Primary Care Provider] - Disposition: Home, Self-Care Prognosis: Fair Rehab Potential: Fair I certify that the patient requires SNF services: No Overall status at discharge: patient is progressing back to baseline Medical - DS: Qual - VTE Deep Vein Thrombosis/Pulmonary Embolism Present on Admission: No
[2017-03-15] MEDS: HYDROCODONE/APAP 7.5/325MG TABLET PO PRN (10:49)
== END 2017-03-15 11:20 | disposition home or self-care (01) | DRG 438 ==
LOC: ED 15:11 → ICU 19:20 → MEDSUR 03-12 19:59
PROVIDERS: ADMIT Internal Medicine; ATTEND Internal Medicine

== ENCOUNTER 2017-12-05 09:23 | Inpatient (IN) ==
[2017-12-05] MEDS ORDERED: IOPAMIDOL 100 ML BOTTLE IV ONE (09:24)
[2017-12-05] MEDS ORDERED: LACTATED RINGERS 1,000 ML IV ONE (09:42)
[2017-12-05] MEDS ORDERED: ONDANSETRON 4 MG/2 ML VIAL IV ONE (09:42)
[2017-12-05 10:35] LABS: Appearance,Urine CLEAR; Bilirubin,Urine NEG (NEG); Color,Urine YELLOW; Glucose,Urine (UA) NEGATIVE (NEG); Leukocyte Esterase,Urine NEG /uL (NEG); Protein,Urine NEG (NEG); Specific Gravity,Urine 1.015 (1.000-1.035); Urine Blood NEG mg/dL (<0.03); Urobilinogen,Urine NEG (NEG)
[2017-12-05 10:35] LABS: Basophils # (Auto) 0 K/mcL (0.0-0.3); Basophils % (Auto) 0.4 % (0.0-2.0); Eosinophils # (Auto) 0 K/mcL (0.0-0.7); Eosinophils % (Auto) 0.3 % (0.0-7.0); Granulocytes % (Auto) 80.6 % (38.0-78.0); Lymphocytes # (Auto) 0.6 K/mcL (1.5-4.8); Lymphocytes % (Auto) 7.8 % (15.5-49.0); Mean Cell Volume 92.2 fL (80.0-100.0); Mean Corpuscular HGB Conc 33.5 g/dL (31.0-36.0); Mean Corpuscular Hemoglobin 30.9 pg (26.0-34.0); Monocytes # (Auto) 0.8 K/mcL (0.1-0.9); Monocytes % (Auto) 10.9 % (1.0-12.0); Platelet Count 201 K/mcL (140-440); RBC 4.86 M/mcL (4.50-5.90); Red Cell Distribution Width 13.5 % (11.5-14.5)
[2017-12-05 10:49] LABS: ALT/SGPT 29 U/l (0-40); Albumin 4.2 gm/dL (3.2-5.2); Albumin/Globulin Ratio 1.3 (1.0-2.3); Alkaline Phosphatase 152 U/L (39-117); Blood Urea Nitrogen 7 mg/dl (8-23)
[2017-12-05 11:08] LABS: Lipase 529 U/L (7-60)
--- NOTE | 2017-12-05 12:45 | Emergency Department Note ---
Abdominal Pain HPI - General Chief Complaint: Abdominal Pain Stated Complaint: Abdominal girdle pain radiating to back. Time Seen by Provider: 12/05/17 09:40 Source: patient Mode of arrival: ambulatory Limitations: no limitations - History of Present Illness HPI Narrative: This patient has had epigastric abdominal pain for last 24 hours and feel like his pancreatitis may be returning. He has had this before and admits to drinking a little bit more alcohol recently than usual due to some social events. This pain does go through to the back. Has had some nausea and vomiting. - Related Data Home Medications Medication Instructions Recorded Confirmed Omeprazole 20 mg PO DAILY 03/07/15 03/06/17 Multivit-Min/Iron Fum/Folic AC 1 each PO DAILY 01/20/17 03/06/17 [Qyxlv-Urdzuwl-Fyaardwo Tablet] Thiamine [Vitamin B1] 100 mg PO DAILY 01/20/17 03/06/17 Previous Rx's Medication Instructions Recorded Ondansetron HCl [Zofran ODT] 4 mg SL Q4-6HP PRN #10 tablet 03/05/17 Amoxicillin/Potassium Clav 875 mg PO Q12H #6 tab 03/15/17 [Augmentin] Diazepam [Valium] 5 mg PO BIDP PRN #10 tab 03/15/17 HYDROcodone/APAP 5/325MG [[place] 1 tab PO Q8HP PRN #14 tab 03/15/17 5-325Mg] Levofloxacin [Levaquin] 750 mg PO DAILY #3 tab 03/15/17 Lipase/Protease/Amylase [Creon] 2 cap PO TIDCC #120 cap 03/15/17 Naproxen [Naprosyn] 500 mg PO BIDCC #10 tab 03/15/17 Sennosides [Senna] 8.6 mg PO BIDP PRN #30 tab 03/15/17 amLODIPine [Norvasc] 5 mg PO DAILY #30 tab 03/15/17 Allergies Allergy/AdvReac Type Severity Reaction Status Date / Time No Known Drug Allergies Allergy Verified 03/05/17 15:13 Review of Systems All systems ED: reviewed and negative except as stated. Abdominal Pain PMH - Past Medical History Medical history: Reports: GERD, other (history of pancreatitis, history of alcohol dependency, drug addiction.) Psychiatric history: Reports: PTSD Family history: Reports: non-contributory - Social History Smoking status: Former smoker Alcohol use: Reports: Heavy (at least a sixpack per day sometimes more), Recent Drug use: Reports: none Physical Exam Limitations: no limitations General appearance: alert Head: atraumatic Eye: Present: normal appearance ENT: normal exam Neck: Present: normal inspection Chest: Present: normal inspection Respiratory: Present: normal lung sounds bilaterally Cardiovascular: Present: regular rate, normal rhythm, normal heart sounds Abdominal: Present: soft, tenderness. Absent: distention, guarding, rebound, rigidity Abdominal tenderness: Present: epigastrium, mild Neurological: Present: alert Psychiatric: Present: normal affect, normal mood Skin: Present: warm, dry, intact Course Vital Signs Temperature 98.3 F 12/05/17 09:24 Pulse Rate 67 12/05/17 09:24 Respiratory Rate 18 12/05/17 09:24 Blood Pressure 160/98 12/05/17 09:24 Pulse Oximetry (%) 98 12/05/17 09:24 Temperature 98.3 F 12/05/17 09:24 Pulse Rate 58 L 12/05/17 12:34 Respiratory Rate 18 12/05/17 09:24 Blood Pressure 165/95 12/05/17 12:32 Pulse Oximetry (%) 97 12/05/17 12:34 Abdominal Pain - MDM Narrative Medical decision making narrative: This patient has pancreatitis with a lipase of over 500. I discussed the case with Dr. Aguero and he will be admitted to the hospital after he obtained a CT scan of his pancreas. - Lab Data Lab results reviewed: Yes I reviewed the patient's lab results. Result diagrams: 12/05/17 09:52 12/05/17 09:52 Lab Results 12/05/17 12/05/17 12/05/17 Range/Units 09:40 09:52 09:52 WBC 7.2 (4.5-11.0) K/mcL RBC 4.86 (4.50-5.90) M/mcL Hgb 15.0 (13.5-16.5) g/dL Hct 44.8 (41.0-55.0) % MCV 92.2 (80.0-100.0) fL MCH 30.9 (26.0-34.0) pg MCHC 33.5 (31.0-36.0) g/dL RDW 13.5 (11.5-14.5) % Plt Count 201 (140-440) K/mcL MPV 9.2 (7.4-10.4) fL Gran % 80.6 H (38.0-78.0) % Lymph % (Auto) 7.8 L (15.5-49.0) % [place] % (Auto) 10.9 (1.0-12.0) % Eos % (Auto) 0.3 (0.0-7.0) % Baso % (Auto) 0.4 (0.0-2.0) % Gran # 5.8 (1.8-8.0) K/mcL Lymph # (Auto) 0.6 L (1.5-4.8) K/mcL [place] # (Auto) 0.8 (0.1-0.9) K/mcL Eos # (Auto) 0 (0.0-0.7) K/mcL Baso # (Auto) 0 (0.0-0.3) K/mcL Sodium 135 (133-145) mmol/L Potassium 4.2 (3.3-5.1) mmol/L Chloride 96 (96-108) mmol/L Carbon Dioxide 26 (22-30) mmol/L Anion Gap 13.0 (8-16) BUN 7 L (8-23) mg/dl Creatinine 0.9 (0.7-1.2) mg/dl GFR Calculation 87 Glucose 172 H (70-105) mg/dL Calcium 9.2 (8.6-10.4) mg/dl Total Bilirubin 0.7 (0.0-1.0) mg/dL AST 45 H (0-37) U/l ALT 29 (0-40) U/l Alkaline Phosphatase 152 H (39-117) U/L Total Protein 7.5 (5.9-8.4) gm/dL Albumin 4.2 (3.2-5.2) gm/dL Globulin 3.3 (2.2-3.7) gm/dL Albumin/Globulin Ratio 1.3 (1.0-2.3) Lipase 529 H (7-60) U/L Urine Color Yellow Urine Appearance Clear Urine pH 6.0 (5.0-9.0) Ur Specific [place] 1.015 (1.000-1.035) Urine Protein Neg (NEG) mg/dL Urine Glucose (UA) Negative (NEG) mg/dL Urine Ketones 5/tr A (NEG) mg/dL Urine Occult Blood Neg (<0.03) mg/dL Urine Nitrate Neg (NEG) Urine Bilirubin Neg (NEG) mg/dL Urine Urobilinogen Neg (NEG) mg/dL Ur Leukocyte Esterase Neg (NEG) /uL Ur Culture Indicated? No Disposition Pt seen by [employer] MANAGER/PA only: No Clinical Impression: Pancreatitis Disposition: Xfer As Inpt ([facility]) Condition: Good Referrals: Ascencion Oviedo ARNP [Primary Care Provider] - Time of Disposition: 12:45
[2017-12-05] MEDS: LACTATED RINGERS 1,000 ML IV SCH ×4 (13:15→23:42)
--- NOTE | 2017-12-05 13:20 | Internal Med History&Physical ---
Medical - H&P: [facility] Patient information: Note initiated : 12/05/17 at 1:17 pm Service Date, if different from initiated Date: [] Patient: Miquel Quinn a 67 y/o M admitted on for Abdominal girdle pain radiating to back.. Chief Complaint: [] Chief complaint: abd pain History of present illness: Mr. Quinn is a 66 year old M with a history of alcohol abuse and prior alcoholic pancreatitis X2 . His most recent admission was on 03/05/17 with alcoholic pancreatitis and withdrawal symptoms. Patient lives with his girlfriend. Over the last 48 hours patient has noted increasing abdominal pain while he continues to drink 12-20 beers a day. His symptoms worsened after he ate pizza and beer 2 days ago. Since then he has been trying to work with the symptoms. He realized the pain is similar to his prior episodes of pancreatitis and subsequently came to [facility] ER. Initial workup was significant for elevated lipase along with simple pancreatitis on abdominal imaging. He received crystalloids along with antiemetics and analgesics. Hospitalist service was consulted. At the Time of evaluation patient is in significant distress from abdominal pain. Describes as 8 out of 10 epigastric radiating to the back with associated nausea without emesis. He denies associated bloody stool or bloody emesis. He denies weight loss fever chills chest pain or shortness of breath. He denies recent changes in medication. He has been through alcohol rehabilitation/detox in the past but has continued to drink. He however denies withdrawal symptoms whenever he cuts down on alcohol. Review of systems A 10 point review systems was performed and is negative except for ones discussed above Medical - H&P: PMH Medical history: Medical History Pancreatitis, alcoholic. Alcohol abuse. GERD History of drug abuse History of PTSD Former smoker. History of alcoholic hepatitis History of syncope January 20, 2017 Social history: Patient admits to drinking at least a sixpack of beer per day, and reports that he previously drank as much as 1-1/2 cases of beer per day. He was a chronic smoker, but quit in June 1999. Reports he does not use drugs. He currently lives with his girlfriend. He says they have several RV using cabins, and he travels quite a bit. Family history: Patient believes his mother with a stroke. His father of "natural causes". His sister has diabetes. Medical - H&P: Meds Home Medications Medication Instructions Recorded Confirmed Type Omeprazole 20 mg PO DAILY 03/07/15 03/06/17 History Multivit-Min/Iron Fum/Folic AC 1 each PO DAILY 01/20/17 03/06/17 History [Sbrme-Eqijpfn-Ahecvhvq Tablet] Thiamine [Vitamin B1] 100 mg PO DAILY 01/20/17 03/06/17 History Ondansetron HCl [Zofran ODT] 4 mg SL Q4-6HP PRN #10 tablet 03/05/17 03/06/17 Rx Amoxicillin/Potassium Clav 875 mg PO Q12H #6 tab 03/15/17 Rx [Augmentin] Diazepam [Valium] 5 mg PO BIDP PRN #10 tab 03/15/17 Rx HYDROcodone/APAP 5/325MG [[place] 1 tab PO Q8HP PRN #14 tab 03/15/17 Rx 5-325Mg] Levofloxacin [Levaquin] 750 mg PO DAILY #3 tab 03/15/17 Rx Lipase/Protease/Amylase [Creon] 2 cap PO TIDCC #120 cap 03/15/17 Rx Naproxen [Naprosyn] 500 mg PO BIDCC #10 tab 03/15/17 Rx Sennosides [Senna] 8.6 mg PO BIDP PRN #30 tab 03/15/17 Rx amLODIPine [Norvasc] 5 mg PO DAILY #30 tab 03/15/17 Rx Allergies Allergy/AdvReac Type Severity Reaction Status Date / Time No Known Drug Allergies Allergy Verified 03/05/17 15:13 Medical - H&P: Exam - Constitutional Vitals: Temp Pulse Resp BP Pulse Ox 98.3 F 68 18 161/93 95 12/05/17 09:24 12/05/17 12:47 12/05/17 09:24 12/05/17 12:47 12/05/17 12:47 Medical - H&P: Reslt - Labs CBC & Chem 7: 12/05/17 09:52 12/05/17 09:52 Labs: Short CBC 12/05/17 Range/Units 09:52 WBC 7.2 (4.5-11.0) K/mcL Hgb 15.0 (13.5-16.5) g/dL Hct 44.8 (41.0-55.0) % Plt Count 201 (140-440) K/mcL BMP 12/05/17 09:52 Sodium 135 Potassium 4.2 Chloride 96 Carbon Dioxide 26 BUN 7 L Creatinine 0.9 Glucose 172 H Calcium 9.2 Liver Function 12/05/17 Range/Units 09:52 Total Bilirubin 0.7 (0.0-1.0) mg/dL AST 45 H (0-37) U/l ALT 29 (0-40) U/l Alkaline Phosphatase 152 H (39-117) U/L Albumin 4.2 (3.2-5.2) gm/dL Urine 12/05/17 Range/Units 09:40 Urine Color Yellow Urine Appearance Clear Urine pH 6.0 (5.0-9.0) Ur Specific [place] 1.015 (1.000-1.035) Urine Protein Neg (NEG) mg/dL Urine Glucose (UA) Negative (NEG) mg/dL Medical - H&P: A/P (1) Pancreatitis, alcoholic, acute Current visit: No Status: Acute * Acute alcoholic pancreatitis-low Adri's and [place] 2 score on admit. Continue conservative management with bowel rest, analgesics, crystalloids and antiemetics. Check CRP and trend over the next 24 hours. Aggressive alcohol cessation counseling * Alcohol dependence-monitor for alcohol withdrawal. Start IV thiamine * History of GERD continue IV PPI * Full code * Prophylaxis heparin Plan * Conservative management as above * Monitor for withdrawals
[2017-12-05] MEDS ORDERED: ACETAMINOPHEN 1,000 MG/100 ML BOTTLE IV PRN (15:26)
[2017-12-05] MEDS ORDERED: ONDANSETRON 4 MG/2 ML VIAL IV PRN (15:26)
[2017-12-05] MEDS ORDERED: ACETAMINOPHEN 325 MG TABLET PO PRN (15:26)
[2017-12-05] MEDS ORDERED: BISACODYL 10 MG SUPP.RECT PR PRN (15:26)
[2017-12-05 15:49] LABS: C-Reactive Protein < 0.3 mg/dl (0.0-0.8)
[2017-12-05] MEDS: 0.9 % SODIUM CHLORIDE 10 ML SYRINGE IV SCH ×2 (16:14→20:23)
[2017-12-05] MEDS: 0.9 % SODIUM CHLORIDE 1,000 ML IV SCH (16:14)
[2017-12-05] MEDS ORDERED: PANTOPRAZOLE 40 MG VIAL IV ONE (16:27)
[2017-12-05] MEDS ORDERED: LORazepam 2 MG/ML VIAL IV PRN ×2 (17:42→21:37)
--- NOTE | 2017-12-05 18:03 | Cat Scan Report ---
CLINICAL INFORMATION: Pancreatitis COMPARISON: 03/05/2017 TECHNIQUE: Following enteric contrast, 80 cc of Isovue-300 were injected and 60 seconds later, 0.625 mm helical slices were obtained from the mid heart through the iliac crest. Following reconstructions, sagittal, coronal and axial reformations were processed. Exam was reviewed at bone, lung and soft tissue windows Eight minutes later repeat 0.625 mm helical slices were obtained through the kidneys.The exam was performed using radiation dose optimization techniques including, but not limited to, automated exposure control, adjustment of the mA and/or kV according to patient size and use of iterative reconstruction technique. FINDINGS: Lung bases show only minimal scattered scarring and/or atelectasis - no effusion. The visualized heart is borderline enlarged - small calcification region aortic valve. Images through the abdomen show moderate fatty change within the liver, but no focal lesion. The gallbladder and bile ducts are normal CBD is 5 mm.Both kidneys, adrenal glands, spleen and aorta, including aortic branches, are normal in size, configuration and attenuation without focal lesion. Patchy low attenuation within the pancreatic head, neck and proximal body with small, moderate fluid in the peripancreatic fat planes is compatible simple pancreatitis. There is no evidence of necrosis or other pancreatitis complication. The pancreatic duct is normal caliber. The stomach, visualized small/large bowel are normal. No free air or adenopathy. Bone windows moderate L2 and mild L3 compression fractures which are stable. IMPRESSION: Simple pancreatitis involving the head and neck with small/moderate fluid in the peripancreatic fat plane. Interpreted and Authenticated by: Luis Ba 12/05/17
[2017-12-05] MEDS ORDERED: hydrALAZINE 20 MG/ML VIAL IV PRN (18:16)
[2017-12-05] MEDS: HEPARIN 5,000 UNIT/ML VIAL SQ SCH (20:22)
[2017-12-05] MEDS: HYDROmorphone 2 MG/ML VIAL IV PRN (20:23)
[2017-12-06] MEDS: HYDROmorphone 2 MG/ML VIAL IV PRN ×4 (04:16→18:05)
[2017-12-06] MEDS: LACTATED RINGERS 1,000 ML IV SCH ×4 (04:31→20:30)
[2017-12-06] MEDS: 0.9 % SODIUM CHLORIDE 10 ML SYRINGE IV SCH ×3 (04:31→22:09)
[2017-12-06 05:00] LABS: Mean Corpuscular HGB Conc 33.8 g/dL (31.0-36.0); Mean Corpuscular Hemoglobin 31.5 pg (26.0-34.0); Platelet Count 165 K/mcL (140-440); RBC 4.28 M/mcL (4.50-5.90); Red Cell Distribution Width 13.2 % (11.5-14.5)
[2017-12-06 05:50] LABS: ALT/SGPT 21 U/l (0-40); Albumin 3.7 gm/dL (3.2-5.2); Albumin/Globulin Ratio 1.5 (1.0-2.3); Alkaline Phosphatase 131 U/L (39-117); Bilirubin,Direct < 0.2 mg/dL (0.0-0.3); Blood Urea Nitrogen 5 mg/dl (8-23); C-Reactive Protein 1.9 mg/dl (0.0-0.8); Gamma Glutamyl Transpeptidase 54 U/L (8-61); Uric Acid 6.9 mg/dL (2.5-8.0)
[2017-12-06 06:09] LABS: Lymphocytes % 7 % (15-49); Monocytes % (Manual) 5 % (1-12); Platelet Estimate NORMAL (NORMAL); RBC Morphology NORMAL (NORMAL); Segmented Neutrophils % 88 % (38-78)
[2017-12-06] MEDS ORDERED: LORazepam 2 MG/ML VIAL IV PRN (06:15)
[2017-12-06] MEDS: PANTOPRAZOLE 40 MG VIAL IV SCH (07:57)
[2017-12-06] MEDS ORDERED: POTASSIUM CHLORIDE 20 MEQ, MAGNESIUM SULFATE 16.24 MEQ, THIAMINE 100 MG, MVI, ADULT NO.... IV SCH (09:00)
[2017-12-06] MEDS: HEPARIN 5,000 UNIT/ML VIAL SQ SCH ×2 (09:09→20:29)
--- NOTE | 2017-12-06 10:20 | Internal Med Progress Note ---
Medical - PN: Subj Patient information: Note initiated : 12/06/17 at 10:19 am Service Date, if different from initiated Date: [] Patient: Miquel Quinn 67 y/o M admitted on 12/05/17 for Abdominal girdle pain radiating to back.. Chief Complaint: [] Interval history: Mr. Quinn is a 66 year old M with a history of alcohol abuse and prior alcoholic pancreatitis X2 . His most recent admission was on 03/05/17 with alcoholic pancreatitis and withdrawal symptoms. Patient lives with his girlfriend. Over the last 48 hours patient has noted increasing abdominal pain while he continues to drink 12-20 beers a day. His symptoms worsened after he ate pizza and beer 2 days ago. Since then he has been trying to work with the symptoms. He realized the pain is similar to his prior episodes of pancreatitis and subsequently came to [facility] ER. Initial workup was significant for elevated lipase along with simple pancreatitis on abdominal imaging. He received crystalloids along with antiemetics and analgesics. Hospitalist service was consulted. At the Time of evaluation patient is in significant distress from abdominal pain. Describes as 8 out of 10 epigastric radiating to the back with associated nausea without emesis. He denies associated bloody stool or bloody emesis. He denies weight loss fever chills chest pain or shortness of breath. He denies recent changes in medication. He has been through alcohol rehabilitation/detox in the past but has continued to drink. He however denies withdrawal symptoms whenever he cuts down on alcohol. 12/06-patient doing better. No signs of withdrawal. Stable hemodynamics and labs. On conservative management. Currently nothing by mouth. Pain in good control. No fever chills or concerns per nursing staff. - Constitutional Vitals: Vital Signs Temp Pulse Resp BP Pulse Ox 98.3 F 63 18 142/79 91 12/06/17 06:48 12/06/17 04:05 12/06/17 06:48 12/06/17 06:48 12/06/17 06:48 Period Temp Pulse Resp BP Sys/Rosado Pulse Ox Last 24 Hr 97.8 F-98.9 F 54-76 16-18 142-190/79-151 91-98 Intake and Output 12/05/17 12/06/17 12/06/17 21:59 05:59 13:59 Intake Total 1999 975 / 975 1000 / 1000 Output Total 650 / 650 475 / 475 Balance 1350 / 1350 500 / 500 1000 / 1000 Weight 208 lb Intake & Output: Intake & Output 12/05/17 12/06/17 12/06/17 21:59 05:59 13:59 Intake Total 1999 975 / 975 1000 / 1000 Output Total 650 / 650 475 / 475 Balance 1350 / 1350 500 / 500 1000 / 1000 Weight 208 lb Intake: IV 1999 975 / 975 1000 / 1000 Sodium Chloride 0.9% 1,000 ml @ 1000 / 1000 Wide Open IV BOLUS GARCÍA Rx#: [id number] Lactated Ringers 1,000 ml @ 150 1000 / 1000 975 / 975 1000 / 1000 mls/hr IV .Q6H40M GARCÍA Rx#: [id number] Output: Void Amount 650 / 650 475 / 475 Other: # Voids 1 General appearance: no acute distress Exam: Alert oriented nonlabored breathing No anxiety Nondistended abdomen Medical - PN: Obj Da - Labs CBC & Chem 7: 12/06/17 03:53 12/06/17 03:53 Labs: Abnormal Lab Results 12/06/17 12/06/17 12/05/17 03:53 03:53 09:52 RBC 4.28 L Hct 39.8 L Gran % Lymph % (Auto) Lymph # (Auto) Seg Neutrophils % 88 H Lymphocytes % 7 L BUN 5 L 7 L Glucose 122 H 172 H AST 45 H Alkaline Phosphatase 131 H 152 H C-Reactive Protein 1.9 H Triglycerides 223 H Lipase 529 H Urine Ketones 12/05/17 12/05/17 09:52 09:40 RBC Hct Gran % 80.6 H Lymph % (Auto) 7.8 L Lymph # (Auto) 0.6 L Seg Neutrophils % Lymphocytes % BUN Glucose AST Alkaline Phosphatase C-Reactive Protein Triglycerides Lipase Urine Ketones 5/tr A Meds: Medications Acetaminophen (Tylenol) 650 mg PO Q4-6HP PRN PRN Reason: PAIN/FEVER > 101 Bisacodyl (Dulcolax) 10 mg LA Q2-3DAYS PRN PRN Reason: Constipation Heparin Sodium (Porcine) (Heparin) 5,000 unit SQ Q12 [facility] Last Admin: 12/06/17 09:09 Dose: 5,000 unit Hydralazine HCl (Apresoline) 10 - 20 mg IV Q6HP PRN PRN Reason: Hypertension Hydromorphone HCl (Dilaudid) 0 mg IV Q2HP PRN PRN Reason: PAIN LEVEL > 6 Last Admin: 12/06/17 09:07 Dose: 0.5 mg Lactated Ringer's (Lactated Ringers) 1,000 mls @ 150 mls/hr IV .Q6H40M [facility] Stop: 12/07/17 00:45 Last Admin: 12/06/17 06:39 Dose: 150 mls/hr Sodium Chloride (Sodium Chloride 0.9%) 1,000 mls @ 0 mls/hr IV BOLUS [facility] PRN Reason: Wide Open Last Infusion: 12/05/17 17:35 Dose: Infused Acetaminophen (Ofirmev) 1,000 mg in 100 mls @ 200 mls/hr IV Q6HP PRN PRN Reason: PAIN/FEVER > 101 Potassium Chloride 20 meq/Magnesium Sulfate 16.24 meq/Thiamine HCl 100 mg/ Multivitamins/Minerals 10 ml/Sodium Chloride 1,025 mls @ 150 mls/hr IV .Q6H50M [facility] Stop: 12/09/17 08:59 Lorazepam (Ativan) 0 mg IV Q1HP PRN; Protocol PRN Reason: ANXIETY/SEDATION Lorazepam (Ativan) 1 mg IV HSP PRN PRN Reason: ANXIETY/SEDATION Morphine Sulfate (Morphine) 4 mg IV Q1HP PRN PRN Reason: PAIN LEVEL > 6 Last Admin: 12/05/17 18:56 Dose: 4 mg Ondansetron HCl (Zofran) 4 mg IV Q4-6HP PRN PRN Reason: Nausea And Vomiting Pantoprazole Sodium (Protonix) 40 mg IV QAMAC [facility] Last Admin: 12/06/17 07:57 Dose: 40 mg Sodium Chloride (Saline Flush) 10 ml IV Q8 [facility] Last Admin: 12/06/17 04:31 Dose: Not Given Medical - PN: A/P - Time Spent With Patient Total time spent is greater than 50% in coordination of care (as documented) at patient's floor/unit and/or counseling patient: 15 - 24 minutes (1) Pancreatitis, alcoholic, acute Status: Acute Assessment and plan: * Acute alcoholic pancreatitis-low [place]'s and [place] 2 score on admit. Continue conservative management with bowel rest, analgesics, crystalloids and antiemetics. Check CRP and trend over the next 24 hours. Aggressive alcohol cessation counseling * Alcohol dependence-monitor for alcohol withdrawal. Start IV thiamine * HTN- On hydralazine PRN. * History of GERD continue IV PPI * Full code * Prophylaxis heparin Plan * Continue conservative management * monitor for alcohol withdrawal * Start clears in 24 hour * Interval CRP and lipase Current Visit: No Medical - PN: Qual - VTE Deep Vein Thrombosis/Pulmonary Embolism Present on Admission: No
[2017-12-06] MEDS ORDERED: chlordiazePOXIDE 25 MG CAPSULE PO PRN (14:30)
[2017-12-06] MEDS: 0.9 % SODIUM CHLORIDE 1,000 ML IV SCH (16:01)
[2017-12-07] MEDS: LACTATED RINGERS 1,000 ML IV SCH (02:57)
[2017-12-07 05:32] LABS: Mean Cell Volume 92.6 fL (80.0-100.0); Mean Corpuscular Hemoglobin 31.5 pg (26.0-34.0); Platelet Count 154 K/mcL (140-440); RBC 4.11 M/mcL (4.50-5.90); Red Cell Distribution Width 13.3 % (11.5-14.5)
[2017-12-07] MEDS: 0.9 % SODIUM CHLORIDE 10 ML SYRINGE IV SCH ×2 (05:52→16:13)
[2017-12-07 05:58] LABS: ALT/SGPT 18 U/l (0-40); Albumin 3.6 gm/dL (3.2-5.2); Albumin/Globulin Ratio 1.3 (1.0-2.3); Alkaline Phosphatase 107 U/L (39-117); Bilirubin,Direct < 0.2 mg/dL (0.0-0.3); Blood Urea Nitrogen 5 mg/dl (8-23); C-Reactive Protein 3.2 mg/dl (0.0-0.8); Gamma Glutamyl Transpeptidase 48 U/L (8-61); Lipase 46 U/L (7-60); Uric Acid 6.7 mg/dL (2.5-8.0)
[2017-12-07] MEDS ORDERED: oxyCODONE HCL 5 MG TABLET PO PRN (06:50)
[2017-12-07 06:52] LABS: Band Neutrophils % 5 % (0-10); Basophils % (Manual) 1 % (0-2); Eosinophils % (Manual) 7 % (0-7); Lymphocytes % 16 % (15-49); Monocytes % (Manual) 8 % (1-12); Platelet Estimate NORMAL (NORMAL); RBC Morphology NORMAL (NORMAL); Segmented Neutrophils % 63 % (38-78)
[2017-12-07] MEDS ORDERED: POTASSIUM CHLORIDE 20 MEQ, MAGNESIUM SULFATE 16.24 MEQ, THIAMINE 100 MG, MVI, ADULT NO.... IV SCH ×2 (07:00→09:00)
[2017-12-07] MEDS: PANTOPRAZOLE 40 MG VIAL IV SCH (07:32)
[2017-12-07] MEDS: HEPARIN 5,000 UNIT/ML VIAL SQ SCH (10:51)
--- NOTE | 2017-12-07 13:41 | Discharge Summary ---
Medical - DS: Prov Patient information: Note initiated : 12/07/17 at 1:37 pm Service Date, if different from initiated Date: [] Patient: Miquel Quinn 67 y/o M admitted on 12/05/17 for Abd Girdle Pain Radiating to Back/Pancreatitis. Chief Complaint: [] Date of admission: 12/05/17 15:17 Discharge date: 12/07/17 (.) Primary care physician: Ascencion Oviedo Consults: 12/05/17 12:33 Consult to Physician [CONS] Stat Comment: Consulting Provider: Gume Grover Reason For Exam: Physician to Consult Discharging clinician: Hansa Wells Medical - DS: Meds - Discharge Medications Prescriptions: oxyCODONE HCL [Roxicodone] 5 mg PO Q4HP PRN #30 tab PRN Reason: Pain Active and Home Medications: Home Medications Omeprazole 20 mg PO DAILY 03/07/15 [History Confirmed 12/05/17 Last Taken 09:00] Multivit-Min/Iron Fum/Folic AC [Qular-Axlevnj-Ydeqmkqh Tablet] 1 each PO DAILY 01/20/17 [History Confirmed 12/05/17 Last Taken 03/03/17] Thiamine [Vitamin B1] 100 mg PO DAILY 01/20/17 [History Confirmed 12/05/17 Last Taken 03/04/17] HYDROcodone/APAP 5/325MG [[place] 5-325Mg] 1 tab PO Q8HP PRN #14 tab 03/15/17 [Rx Confirmed 12/05/17 Last Taken Unknown] Hydroxyzine HCl 50 mg PO HS PRN 12/05/17 [History Confirmed 12/05/17 Last Taken Unknown] Lipase/Protease/Amylase [Creon] 2 cap PO DAILY 12/05/17 [History Confirmed 12/05 Last Taken 12/05/17 09:00] amLODIPine [Norvasc] 5 mg PO PRN 12/05/17 [History Last Taken Unknown] Medical - DS: Hosp Hospital course: Mr. Quinn is a 66 year old M with a history of alcohol abuse and prior alcoholic pancreatitis X2 . His most recent admission was on 03/05/17 with alcoholic pancreatitis and withdrawal symptoms. Over the last 48 hours patient has noted increasing abdominal pain while he continues to drink 12-20 beers a day. His symptoms worsened after he ate pizza and beer 2 days ago. Since then he has been trying to work with the symptoms. He realized the pain is similar to his prior episodes of pancreatitis and subsequently came to [facility] ER. Initial workup was significant for elevated lipase along with simple pancreatitis on CT abdominal imaging. He received crystalloids along with antiemetics and analgesics and he was admitted to the hospital for further management The patient was managed for acute pancreatitis medically, his Lipase [id number], trended to 46 on the day of discharge. His pain improved and he was able to tolerate po diet well. Extensive education done with him and his significant other with regard to harmful effects of alcohol and need to quit, I dont think cutting back is a option at this stage given 3 epidoses of pancreatitis. Pt verbalized understanding. Discharge diagnosis: Acute pancreatitis - Time Spent with Patient Total time spent providing and/or coordinating discharge services: Greater than 30 minutes Medical - DS: Exam - Constitutional Vitals: Vital Signs Temp Pulse Resp BP Pulse Ox 12/07/17 12:00 97.9 F 67 12 160/82 94 12/07/17 07:35 97.9 F 64 12 173/93 94 12/07/17 03:16 97.6 F 64 12 152/86 92 12/06/17 23:27 98.4 F 65 12 158/84 91 12/06/17 19:56 98.3 F 68 12 180/94 92 12/06/17 15:25 97.7 F 18 166/95 92 Intake and Output 12/06/17 12/07/17 12/07/17 21:59 05:59 13:59 Intake Total 1285 / 1285 968 / 968 Output Total 1025 / 1025 1050 / 1050 400 / 400 Balance 260 / 260 -82 / -82 -400 / -400 Intake: IV 1285 / 1285 968 / 968 Lactated Ringers 1,000 ml @ 150 260 / 260 mls/hr IV .Q6H40M [facility] Rx#: [id number] Oral 0 / 0 Output: Void Amount 1025 / 1025 1050 / 1050 400 / 400 Other: Weight 206 lb 8 oz Additional comments: Constitutional; Afebrile, cooperative, alert, not in distress. Eyes- No icterus, , No periorbital swelling Ears- Ext ear normal, hearing normal to conversation. Neck- Midline trachea, supple Respiratory system: Air Entry equal on both sides, No crackles or wheezing, no rhonchi. CVS- Rate rhythm regular, S1,S2 heard, no gallop, no rub. Abdomen- Soft mild epigastric tenderness no organomegaly, no tenderness, no guarding or rigidity, MESSAGING ARCHITECT- AOOx3, moving all extremities, no gross focal deficit noted. Medical - DS: Data Labs on day of discharge: Labs from last 24 hours 12/07/17 12/07/17 04:00 04:00 WBC 5.2 RBC 4.11 L Hgb 13.0 L Hct 38.1 L MCV 92.6 MCH 31.5 MCHC 34.0 RDW 13.3 Plt Count 154 MPV 9.4 Total Counted 100 Seg Neutrophils % 63 Band Neutrophils % 5 Lymphocytes % 16 Monocytes % (Manual) 8 Eosinophils % (Manual) 7 Basophils % (Manual) 1 Platelet Estimate Normal RBC Morphology Normal Sodium 140 Potassium 3.8 Chloride 102 Carbon Dioxide 27 Anion Gap 11.0 BUN 5 L Creatinine 0.7 GFR Calculation 97 Glucose 99 Uric Acid 6.7 Calcium 8.9 Phosphorus 3.0 Magnesium 2.1 Total Bilirubin 0.6 Direct Bilirubin < 0.2 GGT 48 AST 21 ALT 18 Alkaline Phosphatase 107 Lactate Dehydrogenase 157 C-Reactive Protein 3.2 H Total Protein 6.3 Albumin 3.6 Globulin 2.7 Albumin/Globulin Ratio 1.3 Triglycerides 241 H Lipase 46 Medical - DS: A/P - Patient/Caregiver Discharge Instructions Activity: increase activity as tolerated Diet: Regular Diet Additional Instructions: Please follow up with PCP in 1 [address] while if taking pain meds Go to the ER if worsening symptoms, abdominal pain, fever, shortness of breath or any other acute concern Avoid use of alcohol in the future. Please enroll in AA groups, and talk with your PCP with regards to local resources available for you. I have not made any changes to your home medication list, please take them as before. - Follow up Plan Follow up with: Ascencion Oviedo ARNP [Primary Care Provider] - Disposition: Home, Self-Care Prognosis: Fair Rehab Potential: Fair Overall status at discharge: patient is progressing back to baseline Medical - DS: Qual - VTE Deep Vein Thrombosis/Pulmonary Embolism Present on Admission: No
== END 2017-12-07 17:40 | disposition home or self-care (01) | DRG 439 ==
LOC: ED 09:23 → MEDSUR 15:17
PROVIDERS: ADMIT Internal Medicine; ATTEND Internal Medicine

== ENCOUNTER 2018-03-25 02:51 | Inpatient (IN) ==
[2018-03-25] MEDS ORDERED: IOPAMIDOL 100 ML BOTTLE IV ONE (02:52)
[2018-03-25] MEDS ORDERED: ASPIRIN 81 MG TAB.CHEW CHEWED ONE (02:57)
[2018-03-25] MEDS ORDERED: 0.9 % SODIUM CHLORIDE 1,000 ML IV ONE (03:01)
[2018-03-25] MEDS ORDERED: ONDANSETRON 4 MG/2 ML VIAL IV ONE (03:03)
--- NOTE | 2018-03-25 03:07 | Emergency Department Note ---
Chest Pain HPI - General Chief Complaint: Chest Pain Stated Complaint: chest pain Time Seen by Provider: 03/25/18 02:56 Source: patient Mode of arrival: ambulatory Limitations: no limitations - History of Present Illness HPI Narrative: Patient complaining of midepigastric/chest pain present for the past 4 hours patient is actually pointing to his mid epigastric region with some pain to his back. Patient has a history of heavy alcohol usage history of pancreatitis in the past. States today he had 2 vodkas and anywhere from 6-8 beers. He states he woke up in the bathtub with the pain. Does not remember how he got to the bathtub. Patient states he has nausea but has not had any vomiting. States he does not use any recreational drugs does not smoke there is no radiation of pain to his arm or neck or axilla - Related Data Previous Rx's Medication Instructions Recorded HYDROcodone/APAP 5/325MG [[place] 1 tab PO Q8HP PRN #14 tab 03/15/17 5-325Mg] amlodipine 5 mg tablet 5 mg PO QDAY #90 tab 03/02/18 aripiprazole 5 mg tablet 5 mg PO QHS #90 tab 03/02/18 ascorbic acid (vitamin C) 500 mg 2 g PO QDAY #360 tab 03/02/18 tablet blood sugar diagnostic strips See Dose Instructions .ROUTE 03/02/18 .MEDSUPPLY #100 each celecoxib 200 mg capsule 200 mg PO QDAY #90 cap 03/02/18 cetirizine 10 mg tablet 10 mg PO QHS PRN #90 tab 03/02/18 cholecalciferol (vitamin D3) 5,000 5,000 unit PO QDAY #90 cap 03/02/18 unit capsule fluticasone 50 mcg/actuation nasal 1 spray INTRANASAL BID #18.2 g 03/02/18 spray,suspension folic acid 1 mg tablet 2 mg PO QDAY #180 tab 03/02/18 hydroxyzine pamoate 50 mg capsule 50 mg PO QHS PRN #90 cap 03/02/18 lancets See Dose Instructions .ROUTE 03/02/18 .MEDSUPPLY #100 each lidocaine 5 % topical patch 1 patch TOPICAL QDAY #30 each 03/02/18 jvefbe-[id number]-[id number] 2 cap PO TID #540 cap 03/02/18 6,000-19,000-30,000 unit capsule,delayed rel omeprazole 20 mg capsule,delayed 40 mg PO .COMPLEX #180 cap 03/02/18 release ondansetron HCl 4 mg tablet See Label Instructions PO TID PRN 03/02/18 #100 tab prazosin 2 mg capsule See Label Instructions PO .COMPLEX 03/02/18 #90 cap tadalafil 5 mg tablet 5 mg PO QDAY PRN #90 tab 03/02/18 tamsulosin 0.4 mg capsule 0.4 mg PO .COMPLEX #90 cap 03/02/18 vitamin A palmitate 10,000 unit See Label Instructions PO .QD #90 03/02/18 capsule cap Allergies Allergy/AdvReac Type Severity Reaction Status Date / Time No Known Drug Allergies Allergy Verified 03/25/18 02:53 Review of Systems All systems ED: reviewed and negative except as stated. Constitutional: Denies: fever, chills Eyes: Denies: eye pain ENT ED: Denies: ear pain Cardiovascular: Reports: chest pain. Denies: palpitations, dyspnea on exertion , orthopnea Respiratory: Denies: shortness of breath Gastrointestinal: Reports: abdominal pain Genitourinary: Denies: dysuria, frequency Musculoskeletal: Denies: back pain, joint swelling Integumentary: Denies: rash, lesions Neurological: Denies: headache, weakness Psychiatric: Denies: anxiety, depression Endocrine: Denies: fatigue Hematological/Lymphatic: Denies: easy bleeding Allergic/Immunologic: Denies: facial swelling Chest Pain PMH - Past Medical History Medical history: Reports: GERD, hypertension, other (history of pancreatitis, history of alcohol dependency, drug addiction.) Surgical history ED: Reports: other (Hand surgery, knee surgery, left shoulder surgery) Psychiatric history: Reports: PTSD Family history: Reports: non-contributory - Social History smoking status: Former smoker Alcohol use: Reports: Heavy (at least a sixpack per day sometimes more), Recent Drug use: Reports: marijuana Physical Exam Limitations: no limitations General appearance: alert Head: atraumatic, normocephalic Eye: Present: normal appearance, PERRL ENT: normal exam, normal oropharynx, mucous membranes moist Neck: Present: normal inspection, full ROM, trachea midline Chest: Present: normal inspection, symmetric chest wall rise. Absent: tenderness Respiratory: Present: normal lung sounds bilaterally. Absent: respiratory distress, rales/crackles, wheezes Cardiovascular: Present: regular rate, normal rhythm. Absent: bradycardia Abdominal: Present: soft, tenderness, normal bowel sounds. Absent: distention, guarding, rebound, rigidity Abdominal tenderness: Present: epigastrium Extremities: Present: normal inspection, full ROM. Absent: tenderness Back: Present: normal inspection, full ROM. Absent: tenderness Neurological: Present: alert, oriented X3, CN II-XII intact Psychiatric: Present: normal affect, normal mood Skin: Present: warm, dry Course Vital Signs Temperature 97.0 F 03/25/18 02:51 Pulse Rate 70 03/25/18 02:51 Respiratory Rate 18 03/25/18 02:51 Blood Pressure 137/73 03/25/18 02:51 Pulse Oximetry (%) 99 03/25/18 02:51 Temperature 97.0 F 03/25/18 02:51 Pulse Rate 68 03/25/18 06:48 Respiratory Rate 10 L 03/25/18 06:48 Blood Pressure 136/76 03/25/18 06:48 Pulse Oximetry (%) 97 03/25/18 06:48 Chest Pain - MDM Narrative Medical decision making narrative: Alcohol level was 0.03 WBC is 6000 hemoglobin is 14.4 hematocrit of 42.9 glucose is 159 the BUN is 8 creatinine 0.8 sodium is 139 potassium 4.0 AST is 82 ALT of 52 alk phos stage I 30 lipase is 177 the myoglobin is 44 troponin less than 0.[address]-T type elevations CT of the abdomen reveals simple pancreatitis patient rating his pain initially as an 8/10 and has needed Dilaudid to control pain in the ED has been no vomiting dr Bolton consulted and patient to be admited to med surg - Lab Data Result diagrams: 03/25/18 03:03 03/25/18 03:03 Lab Results 03/25/18 03/25/18 03/25/18 Range/Units 03:03 03:03 03:03 WBC 6.0 (4.5-11.0) K/mcL RBC 4.66 (4.50-5.90) M/mcL Hgb 14.4 (13.5-16.5) g/dL Hct 42.9 (41.0-55.0) % MCV 92.0 (80.0-100.0) fL MCH 30.9 (26.0-34.0) pg MCHC 33.6 (31.0-36.0) g/dL RDW 13.3 (11.5-14.5) % Plt Count 174 (140-440) K/mcL MPV 9.4 (7.4-10.4) fL Gran % 79.8 H (38.0-78.0) % Lymph % (Auto) 10.9 L (15.5-49.0) % Barron % (Auto) 9.0 (1.0-12.0) % Eos % (Auto) 0.2 (0.0-7.0) % Baso % (Auto) 0.1 (0.0-2.0) % Gran # 4.8 (1.8-8.0) K/mcL Lymph # (Auto) 0.7 L (1.5-4.8) K/mcL Barron # (Auto) 0.5 (0.1-0.9) K/mcL Eos # (Auto) 0 (0.0-0.7) K/mcL Baso # (Auto) 0 (0.0-0.3) K/mcL Sodium 139 (133-145) mmol/L Potassium 4.0 (3.3-5.1) mmol/L Chloride 95 L (96-108) mmol/L Carbon Dioxide 25 (22-30) mmol/L Anion Gap 19.0 H (8-16) BUN 8 (8-23) mg/dl Creatinine 0.8 (0.7-1.2) mg/dl GFR Calculation 92 Glucose 159 H (70-105) mg/dL Calcium 8.8 (8.6-10.4) mg/dl Total Bilirubin 0.5 (0.0-1.0) mg/dL AST 82 H (0-37) U/l ALT 52 H (0-40) U/l Alkaline Phosphatase 130 H (39-117) U/L Total Creatine Kinase 143 (24-195) IU/L CK-MB (CK-2) 3.8 (0-4.9) ng/ml Myoglobin 44 (28-72) ng/ml Troponin T < 0.01 (0-0.03) ng/ml Total Protein 7.4 (5.9-8.4) gm/dL Albumin 4.3 (3.2-5.2) gm/dL Globulin 3.1 (2.2-3.7) gm/dL Albumin/Globulin Ratio 1.4 (1.0-2.3) Lipase 177 H (7-60) U/L Ethyl Alcohol (<0.010) gm/dl 03/25/18 Range/Units 03:03 WBC (4.5-11.0) K/mcL RBC (4.50-5.90) M/mcL Hgb (13.5-16.5) g/dL Hct (41.0-55.0) % MCV (80.0-100.0) fL MCH (26.0-34.0) pg MCHC (31.0-36.0) g/dL RDW (11.5-14.5) % Plt Count (140-440) K/mcL MPV (7.4-10.4) fL Gran % (38.0-78.0) % Lymph % (Auto) (15.5-49.0) % Barron % (Auto) (1.0-12.0) % Eos % (Auto) (0.0-7.0) % Baso % (Auto) (0.0-2.0) % Gran # (1.8-8.0) K/mcL Lymph # (Auto) (1.5-4.8) K/mcL Barron # (Auto) (0.1-0.9) K/mcL Eos # (Auto) (0.0-0.7) K/mcL Baso # (Auto) (0.0-0.3) K/mcL Sodium (133-145) mmol/L Potassium (3.3-5.1) mmol/L Chloride (96-108) mmol/L Carbon Dioxide (22-30) mmol/L Anion Gap (8-16) BUN (8-23) mg/dl Creatinine (0.7-1.2) mg/dl GFR Calculation Glucose (70-105) mg/dL Calcium (8.6-10.4) mg/dl Total Bilirubin (0.0-1.0) mg/dL AST (0-37) U/l ALT (0-40) U/l Alkaline Phosphatase (39-117) U/L Total Creatine Kinase (24-195) IU/L CK-MB (CK-2) (0-4.9) ng/ml Myoglobin (28-72) ng/ml Troponin T (0-0.03) ng/ml Total Protein (5.9-8.4) gm/dL Albumin (3.2-5.2) gm/dL Globulin (2.2-3.7) gm/dL Albumin/Globulin Ratio (1.0-2.3) Lipase (7-60) U/L Ethyl Alcohol 0.034 H (<0.010) gm/dl Disposition Pt seen by [facility] [employer] TENDER/PA only: No Clinical Impression: Pancreatitis Qualifiers: Chronicity: acute Pancreatitis type: alcohol induced Disposition: Xfer As Outpt/Obs ([facility]) Condition: Good Referrals: Ascencion Oviedo ARNP [Primary Care Provider] -
[2018-03-25] MEDS: HYDROmorphone 2 MG/ML VIAL IV PRN ×11 (03:15→23:34)
[2018-03-25 03:40] LABS: Basophils # (Auto) 0 K/mcL (0.0-0.3); Basophils % (Auto) 0.1 % (0.0-2.0); Eosinophils # (Auto) 0 K/mcL (0.0-0.7); Eosinophils % (Auto) 0.2 % (0.0-7.0); Granulocytes % (Auto) 79.8 % (38.0-78.0); Lymphocytes # (Auto) 0.7 K/mcL (1.5-4.8); Lymphocytes % (Auto) 10.9 % (15.5-49.0); Mean Corpuscular HGB Conc 33.6 g/dL (31.0-36.0); Mean Corpuscular Hemoglobin 30.9 pg (26.0-34.0); Monocytes # (Auto) 0.5 K/mcL (0.1-0.9); Platelet Count 174 K/mcL (140-440); RBC 4.66 M/mcL (4.50-5.90); Red Cell Distribution Width 13.3 % (11.5-14.5)
[2018-03-25] MEDS ORDERED: POTASSIUM CHLORIDE 20 MEQ, MAGNESIUM SULFATE 16.24 MEQ, THIAMINE 100 MG, MVI, ADULT NO.... IV SCH (03:45)
[2018-03-25 04:06] LABS: ALT/SGPT 52 U/l (0-40); Albumin 4.3 gm/dL (3.2-5.2); Albumin/Globulin Ratio 1.4 (1.0-2.3); Alkaline Phosphatase 130 U/L (39-117); Blood Urea Nitrogen 8 mg/dl (8-23); Creatine Kinase 143 IU/L (24-195); Creatine Kinase MB 3.8 ng/ml (0-4.9); Lipase 177 U/L (7-60); Myoglobin 44 ng/ml (28-72)
--- NOTE | 2018-03-25 04:47 | XRay Report ---
CLINICAL INFORMATION: Chest Pain COMPARISON: 03/12/2017 FINDINGS: The heart is mildly enlarged, but unchanged. Ectatic thoracic aorta is again noted. The remaining mediastinum and pulmonary vessels are normal. Minimal bibasilar atelectasis noted. No effusion IMPRESSION: Mild stable cardiomegaly and minimal bibasilar atelectasis Interpreted and Authenticated by: Luis Ba 03/25/18
--- NOTE | 2018-03-25 05:04 | Cat Scan Report ---
CLINICAL INFORMATION: History of pancreatitis COMPARISON: 03/05/2017 and 12/23/2017. TECHNIQUE: Following enteric contrast, 80 cc of Isovue-300 were injected intravenously, and 60 seconds later, 0.625 mm helical slices were obtained from the mid heart through the subtrochanteric regions. Following reconstruction, 2.5 mm sagittal, coronal and axial reformatted images were processed and reviewed at bone, lung and soft tissue windows. Five minutes later, 0.625 mm helical slices were obtained from the mid heart through the kidneys and viewed at soft tissue windows.The exam was performed using radiation dose optimization techniques including, but not limited to, automated exposure control, adjustment of the mA and/or kV according to patient size and use of iterative reconstruction technique. FINDINGS: Lung bases show minor bibasilar scarring and/or atelectasis. There are no infiltrates or effusions. The heart is borderline enlarged small amount of calcific cage in the aortic valve. Images through the abdomen show the gallbladder and bile bile ducts and liver, both kidneys, adrenal glands, spleen and aorta, including aortic branches, are normal in size, configuration and attenuation without focal lesion. Mild inflammatory changes in the pancreatic head, neck and proximal body with inflammation in the peripancreatic fat. There is no evidence of necrosis, abscess or pseudocyst or other complication of pancreatitis. Pancreatic duct is normal in caliber. Sigmoid diverticulosis again noted - remaining colon is unremarkable. The cecum is hypermobile - located in the left upper quadrant. Appendix not identified, but there is no inflammation in the region of the appendix. Small bowel and stomach are normal. Bone windows show moderate old L2 and mild old L3 compression fractures which are stable. No other osseous abnormality. IMPRESSION: 1. Recurrent simple pancreatitis involving the head, neck and proximal body. There is no necrosis, abscess or other complication. 2. Sigmoid diverticulosis - no evidence of diverticulitis. Hypermobile cecum which is located in the left upper quadrant again seen 3. Small right inguinal hernia consisting only mesenteric fat is unchanged. These are commonly seen and nearly always asymptomatic. Interpreted and Authenticated by: Luis Ba 03/25/18
[2018-03-25] MEDS ORDERED: PROCHLORPERAZINE 10 MG/2 ML VIAL IV PRN (08:02)
[2018-03-25] MEDS ORDERED: chlordiazePOXIDE 25 MG CAPSULE PO PRN (08:11)
[2018-03-25] MEDS ORDERED: cloNIDine HCL 0.1 MG TABLET PO PRN (08:11)
[2018-03-25] MEDS ORDERED: LORazepam 2 MG/ML VIAL IV PRN (08:11)
--- NOTE | 2018-03-25 08:16 | Internal Med History&Physical ---
Medical - H&P: HPI Patient information: Note initiated : 03/25/18 at 8:12 am Service Date, if different from initiated Date: [] Patient: Miquel Quinn 67 y/o M admitted on 03/25/18 for Chest pain. Chief Complaint: [] History of present illness: Mr. Quinn is a 67 year old M With history of alcohol abuse and chronic pancreatitis who states he drinks about 6-12 beers a day. Yesterday he drank more including 2 vodkas plus beers, he woke up feeling fine in the morning, he started drinking afternoon. And then in the evening he woke up in the bathtub with abdominal pain, does remember getting into the bathtub. Describes the pain as upper abdomen and severe sharp and severe achy with radiation directly through to the back. He has some nausea no vomiting he had one episode of diarrhea yesterday. Denies drug use. In the ER he was evaluated and found to have acute on chronic pancreatitis. Review of systems positive for epigastric sharp and achy pain radiating, nausea , episode of diarrhea, denies headache fever chills chest pain coughing shortness of breath constipation remaining 10 point review of systems reviewed negative Medical - H&P: PMH Medical history: Medical History (Last Reviewed 03/02/18 @ 08:03 by Contreras Hamilton MD) Insomnia (Chronic) Acid reflux (Chronic) Encounter for wound re-check (Resolved) Pancreatitis (Chronic) Pancreatitis, alcoholic, acute (Chronic) Alcoholic hepatitis (Chronic) Colonic polyp (Chronic) Degenerative disc disease (Chronic) PTSD (post-traumatic stress disorder) (Chronic) Sleep apnea (Chronic) Laceration (Resolved) Pelvic fracture (Resolved) Chronic pain TED with CPAP but noncompliant Past Surgical History (Last Reviewed 03/02/18 @ 08:03 by Contreras Hamilton MD) Foot deformity, acquired (Chronic) History of colonoscopy (Chronic ~12/08/17) History of hand surgery (Chronic) History of knee surgery (Resolved) Rotator cuff arthropathy of left shoulder (Resolved) Family History (Last Reviewed 03/02/18 @ 08:03 by Contreras Hamilton MD) Sister Diabetes type 2, controlled Degenerative disc disease Arthritis Mother Stroke Hypertension Father Atrial fibrillation Social History (Last Updated 03/02/18 @ 08:31 by Contreras Hamilton MD) Quit smoking in 1999 Drinks 6-12 beers a day Lives at home with girlfriend Medical - H&P: Meds Home Medications Medication Instructions Recorded Confirmed Type HYDROcodone/APAP 5/325MG [[place] 1 tab PO Q8HP PRN #14 tab 03/15/17 03/02/18 Rx 5-325Mg] amlodipine 5 mg tablet 5 mg PO QDAY #90 tab 03/02/18 03/02/18 Rx aripiprazole 5 mg tablet 5 mg PO QHS #90 tab 03/02/18 03/02/18 Rx ascorbic acid (vitamin C) 500 mg 2 g PO QDAY #360 tab 03/02/18 03/02/18 Rx tablet blood sugar diagnostic strips See Dose Instructions .ROUTE 03/02/18 03/02/18 Rx .MEDSUPPLY #100 each celecoxib 200 mg capsule 200 mg PO QDAY #90 cap 03/02/18 03/02/18 Rx cetirizine 10 mg tablet 10 mg PO QHS PRN #90 tab 03/02/18 03/02/18 Rx cholecalciferol (vitamin D3) 5,000 5,000 unit PO QDAY #90 cap 03/02/18 03/02/18 Rx unit capsule fluticasone 50 mcg/actuation nasal 1 spray INTRANASAL BID #18.2 g 03/02/1803/02 Rx spray,suspension folic acid 1 mg tablet 2 mg PO QDAY #180 tab 03/02/18 03/02/18 Rx hydroxyzine pamoate 50 mg capsule 50 mg PO QHS PRN #90 cap 03/02/18 03/02/18 Rx lancets See Dose Instructions .ROUTE 03/02/18 03/02/18 Rx .MEDSUPPLY #100 each lidocaine 5 % topical patch 1 patch TOPICAL QDAY #30 each 03/02/18 03/02/18 Rx tyjoec-usnbxlli-yraooxm 2 cap PO TID #540 cap 03/02/18 03/02/18 Rx 6,000-19,000-30,000 unit capsule,delayed rel omeprazole 20 mg capsule,delayed 40 mg PO .COMPLEX #180 cap 03/02/18 03/02/18 Rx release ondansetron HCl 4 mg tablet See Label Instructions PO TID PRN 09/19/18 09/19/18 Rx #100 tab prazosin 2 mg capsule See Label Instructions PO .COMPLEX 03/02/18 03/02/18 Rx #90 cap tadalafil 5 mg tablet 5 mg PO QDAY PRN #90 tab 03/02/18 03/02/18 Rx tamsulosin 0.4 mg capsule 0.4 mg PO .COMPLEX #90 cap 03/02/18 03/02/18 Rx vitamin A palmitate 10,000 unit See Label Instructions PO .QD #90 03/02/1803/02 Rx capsule cap Allergies Allergy/AdvReac Type Severity Reaction Status Date / Time No Known Drug Allergies Allergy Verified 03/25/18 02:53 Medical - H&P: Exam - Constitutional Vitals: Temp Pulse Resp BP Pulse Ox 97.7 F 68 16 147/64 94 03/25/18 07:36 03/25/18 07:15 03/25/18 07:36 03/25/18 07:36 03/25/18 07:36 Exam: General: Alert, Awake, No acute Distress HEENT: EOMI, pupils equal round to light, dry mucous membranes, normocephalic atraumatic CV: RRR, No murmurs, normal s1/s2 Pulm: Clear b/l, no wheezing/rhonchi/rales Abd: soft, tender to palp epigastrium, +BS x4 Ext: no clubbing/cyanosis/edema Neuro: Alert, no focal deficits, moves all extremities Skin: warm/dry Medical - H&P: Reslt - Labs CBC & Chem 7: 03/25/18 03:03 03/25/18 03:03 Labs: Short CBC 03/25/18 Range/Units 03:03 WBC 6.0 (4.5-11.0) K/mcL Hgb 14.4 (13.5-16.5) g/dL Hct 42.9 (41.0-55.0) % Plt Count 174 (140-440) K/mcL BMP 03/25/18 03:03 Sodium 139 Potassium 4.0 Chloride 95 L Carbon Dioxide 25 BUN 8 Creatinine 0.8 Glucose 159 H Calcium 8.8 Cardiac Enzymes 03/25/18 03/25/18 Range/Units 03:03 03:03 Total Creatine Kinase 143 (24-195) IU/L CK-MB (CK-2) 3.8 (0-4.9) ng/ml Troponin T < 0.01 (0-0.03) ng/ml Liver Function 03/25/18 Range/Units 03:03 Total Bilirubin 0.5 (0.0-1.0) mg/dL AST 82 H (0-37) U/l ALT 52 H (0-40) U/l Alkaline Phosphatase 130 H (39-117) U/L Albumin 4.3 (3.2-5.2) gm/dL - EKG Data Interpretation: normal EKG - Imaging and Cardiology Chest x-ray Additional comments: Chest x-ray unremarkable other than atelectasis Medical - H&P: A/P - Narrative A/P Narrative: A: *Acute on chronic pancreatitis: Secondary to continued alcohol abuse, plus or minus home medication he does take omeprazole which is a class Ib category -CT imaging no necrosis abscess or pseudocyst *Alcohol abuse: *Mild transaminitis: secondary to alcohol abuse with likely fatty liver *Hypertension: *Obstructive sleep apnea noncompliant with CPAP machine *Anxiety *GERD *Chronic pain, LBP and foot * P: -N.p.o. -Aggressive IV fluid hydration -Antiemetics pain control -Follow chemistry -DC home Prilosec we will switch to Pepcid -CPAP -CIWA, vitamins, prn benzo -ppx: Lovenox
[2018-03-25] MEDS: 0.9 % SODIUM CHLORIDE 1,000 ML IV SCH ×6 (08:34→21:20)
[2018-03-25] MEDS: FAMOTIDINE/PF 20 MG/2 ML VIAL IV SCH ×2 (08:59→20:31)
[2018-03-25] MEDS: MULTIVIT,THER IRON,CA,FA & MIN 1 TABLET PO SCH (08:59)
[2018-03-25] MEDS: ONDANSETRON 4 MG/2 ML VIAL IV PRN ×2 (08:59→18:40)
[2018-03-25] MEDS: ENOXAPARIN 40 MG/0.4 ML SYRINGE SQ SCH (09:03)
[2018-03-25] MEDS: THIAMINE 100 MG in 0.9 % SODIUM CHLORIDE 50 ML IV SCH (09:04)
[2018-03-25] MEDS ORDERED: HYDROcodone/APAP 5/325MG TABLET PO PRN (12:26)
[2018-03-25] MEDS ORDERED: 0.9 % SODIUM CHLORIDE 10 ML SYRINGE IV SCH (14:00)
[2018-03-25] MEDS: 0.9 % SODIUM CHLORIDE 10 ML SYRINGE IV SCH ×2 (14:15→20:39)
[2018-03-25] MEDS: LIPASE/PROTEASE/AMYLASE 1 CAP CAPSULE PO SCH ×2 (14:52→20:31)
[2018-03-25] MEDS: TAMSULOSIN 0.4 MG CAPSULE PO SCH (20:30)
[2018-03-25] MEDS: ARIPIPRAZOLE 5 MG TABLET PO SCH (20:30)
[2018-03-25] MEDS ORDERED: HYDROmorphone 2 MG/ML VIAL ONE (20:31)
[2018-03-25] MEDS: hydrOXYzine 25 MG TABLET PO PRN (21:19)
[2018-03-26] MEDS: HYDROmorphone 2 MG/ML VIAL IV PRN ×7 (04:46→22:32)
[2018-03-26] MEDS: 0.9 % SODIUM CHLORIDE 10 ML SYRINGE IV SCH ×3 (04:54→20:21)
[2018-03-26 05:54] LABS: Basophils # (Auto) 0 K/mcL (0.0-0.3); Basophils % (Auto) 0.2 % (0.0-2.0); Eosinophils # (Auto) 0 K/mcL (0.0-0.7); Eosinophils % (Auto) 0.3 % (0.0-7.0); Granulocytes % (Auto) 83.5 % (38.0-78.0); Lymphocytes # (Auto) 0.4 K/mcL (1.5-4.8); Lymphocytes % (Auto) 5.6 % (15.5-49.0); Mean Cell Volume 92.4 fL (80.0-100.0); Mean Corpuscular HGB Conc 33.5 g/dL (31.0-36.0); Monocytes # (Auto) 0.7 K/mcL (0.1-0.9); Monocytes % (Auto) 10.4 % (1.0-12.0); Platelet Count 155 K/mcL (140-440); RBC 4.72 M/mcL (4.50-5.90); Red Cell Distribution Width 13.5 % (11.5-14.5)
[2018-03-26 06:10] LABS: ALT/SGPT 37 U/l (0-40); Albumin 4.3 gm/dL (3.2-5.2); Albumin/Globulin Ratio 1.4 (1.0-2.3); Alkaline Phosphatase 138 U/L (39-117); Bilirubin,Direct < 0.2 mg/dL (0.0-0.3); Blood Urea Nitrogen 3 mg/dl (8-23); Gamma Glutamyl Transpeptidase 141 U/L (8-61); Uric Acid 5.3 mg/dL (2.5-8.0)
--- NOTE | 2018-03-26 06:53 | Internal Med Progress Note ---
Medical - PN: Subj Patient information: Note initiated : 03/26/18 at 6:49 am Service Date, if different from initiated Date: [] Patient: Miquel Quinn 67 y/o M admitted on 03/25/18 for Chest pain. Chief Complaint: [] Interval history: Mr. Quinn is a 67 year old M With history of alcohol abuse and chronic pancreatitis who states he drinks about 6-12 beers a day. Yesterday he drank more including 2 vodkas plus beers, he woke up feeling fine in the morning, he started drinking afternoon. And then in the evening he woke up in the bathtub with abdominal pain, does remember getting into the bathtub. Describes the pain as upper abdomen and severe sharp and severe achy with radiation directly through to the back. He has some nausea no vomiting he had one episode of diarrhea yesterday. Denies drug use. In the ER he was evaluated and found to have acute on chronic pancreatitis. 03/26 Poor sleep because of pump Making noise, interruptions. Pain relatively controlled with analgesics, but if he waits too long it is quite severe. Denies nausea vomiting. Review of Systems: denies headache/fever/chills/nausea/vomiting/chest pain/cough/dyspnea/diarrhea. Otherwise see above. - Constitutional Vitals: Vital Signs Temp Pulse Resp BP Pulse Ox 98.5 F 58 L 14 140/85 94 03/26/18 04:00 03/26/18 04:00 03/26/18 04:00 03/26/18 04:00 03/26/18 04:00 Period Temp Pulse Resp BP Sys/[place] Pulse Ox Last 24 Hr 97.0 F-98.9 F 58-81 05-31 136-163/64-95 93-97 Intake and Output 03/25/18 03/26/18 03/26/18 21:59 05:59 13:59 Intake Total 2618 / 2618 Output Total 450 / 450 Balance 2168 / 2168 Weight 95.254 kg Intake & Output: Intake & Output 03/25/18 03/26/18 03/26/18 21:59 05:59 13:59 Intake Total 2618 / 2618 Output Total 450 / 450 Balance 2168 / 2168 Weight 95.254 kg Intake: IV 2618 / 2618 Sodium Chloride 0.9% 1,000 ml @ 2618 / 2618 175 mls/hr IV .Q5H43M [facility] Rx#: [id number] Output: Void Amount 450 / 450 Other: # Voids 1 4 Exam: General: Alert, Awake, No acute Distress HEENT: EOMI, neck supple CV: RRR, No murmurs, normal s1/s2 Pulm: Clear b/l, no wheezing/rhonchi/rales Abd: soft, tender to palp epigastrium, +BS x4 Ext: no clubbing/cyanosis/edema Neuro: Alert, no focal deficits, moves all extremities Skin: warm/dry Medical - PN: Obj Da - Labs CBC & Chem 7: 03/26/18 04:47 03/26/18 04:47 Labs: Abnormal Lab Results 03/26/18 03/26/18 03/25/18 04:47 04:47 10:02 Gran % 83.5 H Lymph % (Auto) 5.6 L Lymph # (Auto) 0.4 L Chloride Anion Gap BUN 3 L Glucose 129 H Phosphorus 2.2 L GGT 141 H AST 45 H ALT Alkaline Phosphatase 138 H Lactate Dehydrogenase 317 H Lipase Ethyl Alcohol 03/25/18 03/25/18 03/25/18 03:03 03:03 03:03 Gran % 79.8 H Lymph % (Auto) 10.9 L Lymph # (Auto) 0.7 L Chloride 95 L Anion Gap 19.0 H BUN Glucose 159 H Phosphorus GGT AST 82 H ALT 52 H Alkaline Phosphatase 130 H Lactate Dehydrogenase Lipase 177 H Ethyl Alcohol 0.034 H Meds: Medications Hydrocodone Bitart/Acetaminophen ([place] 5/325mg) 1 tab PO Q8HP PRN PRN Reason: Pain Amlodipine Besylate (Norvasc) 5 mg PO QDAY [facility] Lipase/Protease/Amylase ([place]) 2 cap PO TID [facility] Last Admin: 03/25/18 20:31 Dose: 2 cap Chlordiazepoxide HCl (Librium) 50 mg PO Q4HP PRN PRN Reason: Alcohol Withdrawal Clonidine HCl (Catapres) 0.1 mg PO Q4HP PRN PRN Reason: Alcohol Withdrawal Enoxaparin Sodium (Lovenox) 40 mg SQ DAILY [facility] Last Admin: 03/25/18 09:03 Dose: 40 mg Famotidine (Pepcid) 20 mg IV Q12 [facility] Last Admin: 03/25/18 20:31 Dose: 20 mg Folic Acid (Folic Acid) 2 mg PO QDAY [facility] Hydromorphone HCl (Dilaudid) 0.5 - 1 mg IV Q2HP PRN PRN Reason: PAIN LEVEL > 6 Last Admin: 03/26/18 04:46 Dose: 1 mg Hydroxyzine HCl (Atarax) 50 mg PO HSP PRN PRN Reason: Insomnia Last Admin: 03/25/18 21:19 Dose: 50 mg Thiamine HCl 100 mg/ Sodium (Chloride) 51 mls @ 50 mls/hr IV DAILY [facility] Last Infusion: 03/25/18 10:15 Dose: Infused Iron Carb/Multivit/Svp Chief Marketing Officer/Folic Acid (Multivitamin W/Minerals) 1 tab PO DAILY [facility] Last Admin: 03/25/18 08:59 Dose: 1 tab Lorazepam (Ativan) 0 mg IV Q4HP PRN; Protocol PRN Reason: Alcohol Withdrawal Ondansetron HCl (Zofran) 4 mg IV Q6HP PRN PRN Reason: Nausea And Vomiting Last Admin: 03/25/18 18:40 Dose: 4 mg Prochlorperazine Edisylate (Compazine) 5 mg IV Q4HP PRN PRN Reason: Nausea And Vomiting Sodium Chloride (Saline Flush) 10 ml IV Q8 [facility] Last Admin: 03/26/18 04:54 Dose: Not Given Tamsulosin HCl (Flomax) 0.4 mg PO HS [facility] Last Admin: 03/25/18 20:30 Dose: 0.4 mg Medical - PN: A/P - Time Spent With Patient Total time spent is greater than 50% in coordination of care (as documented) at patient's floor/unit and/or counseling patient: - Narrative A/P Narrative: A: *Acute on chronic pancreatitis: Secondary to continued alcohol abuse, plus or minus home medication he does take omeprazole which is a class Ib category -CT imaging no necrosis abscess or pseudocyst *Alcohol abuse: *Mild transaminitis: secondary to alcohol abuse with likely fatty liver. Improved *Hypertension: *Obstructive sleep apnea noncompliant with CPAP machine *Anxiety *GERD *Chronic pain, LBP and foot P: -NPO for today, sips/chip ok -IV fluid hydration -Antiemetics pain control -Follow chemistry -DC'd home Prilosec switched to Pepcid -CPAP -CIWA, vitamins, prn benzo -ppx: Lovenox
[2018-03-26] MEDS: ONDANSETRON 4 MG/2 ML VIAL IV PRN ×2 (07:25→18:46)
[2018-03-26] MEDS: LIPASE/PROTEASE/AMYLASE 1 CAP CAPSULE PO SCH ×3 (09:06→20:17)
[2018-03-26] MEDS: ENOXAPARIN 40 MG/0.4 ML SYRINGE SQ SCH (09:06)
[2018-03-26] MEDS: FOLIC ACID 1 MG TABLET PO SCH (09:06)
[2018-03-26] MEDS: MULTIVIT,THER IRON,CA,FA & MIN 1 TABLET PO SCH (09:06)
[2018-03-26] MEDS: amLODIPine 5 MG TABLET PO SCH (09:06)
[2018-03-26] MEDS: THIAMINE 100 MG in 0.9 % SODIUM CHLORIDE 50 ML IV SCH (09:07)
[2018-03-26] MEDS: FAMOTIDINE/PF 20 MG/2 ML VIAL IV SCH ×2 (09:07→20:21)
[2018-03-26] MEDS: DEXTROSE 5%-NS 1,000 ML IV SCH ×3 (10:54→19:49)
[2018-03-26] MEDS: TAMSULOSIN 0.4 MG CAPSULE PO SCH (20:17)
[2018-03-26] MEDS: hydrOXYzine 25 MG TABLET PO PRN (20:18)
[2018-03-26] MEDS: ARIPIPRAZOLE 5 MG TABLET PO SCH (20:18)
[2018-03-27] MEDS: HYDROmorphone 2 MG/ML VIAL IV PRN ×6 (01:33→20:25)
[2018-03-27] MEDS: ONDANSETRON 4 MG/2 ML VIAL IV PRN ×3 (01:36→21:25)
[2018-03-27] MEDS: DEXTROSE 5%-NS 1,000 ML IV SCH ×2 (03:50→10:56)
[2018-03-27] MEDS: 0.9 % SODIUM CHLORIDE 10 ML SYRINGE IV SCH ×3 (05:59→21:10)
--- NOTE | 2018-03-27 06:57 | Internal Med Progress Note ---
Medical - PN: Subj Patient information: Note initiated : 03/27/18 at 6:55 am Service Date, if different from initiated Date: [] Patient: Miquel Quinn 67 y/o M admitted on 03/25/18 for Chest pain. Chief Complaint: [] Interval history: Mr. Quinn is a 67 year old M With history of alcohol abuse and chronic pancreatitis who states he drinks about 6-12 beers a day. Yesterday he drank more including 2 vodkas plus beers, he woke up feeling fine in the morning, he started drinking afternoon. And then in the evening he woke up in the bathtub with abdominal pain, does remember getting into the bathtub. Describes the pain as upper abdomen and severe sharp and severe achy with radiation directly through to the back. He has some nausea no vomiting he had one episode of diarrhea yesterday. Denies drug use. In the ER he was evaluated and found to have acute on chronic pancreatitis. 03/26 Poor sleep because of pump Making noise, interruptions. Pain relatively controlled with analgesics, but if he waits too long it is quite severe. Denies nausea vomiting. 03/27 Sleep not great, but better than last night. Pain is relatively controlled. No other new complaints. Does have an appetite Review of Systems: denies headache/fever/chills/nausea/vomiting/chest pain/cough/dyspnea/diarrhea. Otherwise see above. - Constitutional Vitals: Vital Signs Temp Pulse Resp BP Pulse Ox 97.8 F 58 L 18 158/85 92 03/27/18 04:00 03/27/18 04:00 03/27/18 04:00 03/27/18 04:00 03/27/18 04:00 Period Temp Pulse Resp BP Sys/Rosado Pulse Ox Last 24 Hr 97.8 F-99.2 F 58-68 16-24 146-166/82-86 91-96 Intake and Output 03/26/18 03/27/18 03/27/18 21:59 05:59 13:59 Intake Total 1051 / 1051 1300 / 1300 Balance 1051 / 1051 1300 / 1300 Weight 96.615 kg Intake & Output: Intake & Output 03/26/18 03/27/18 03/27/18 21:59 05:59 13:59 Intake Total 1051 / 1051 1300 / 1300 Balance 1051 / 1051 1300 / 1300 Weight 96.615 kg Intake: IV 1051 / 1051 1000 / 1000 Dextrose 5%-Ns IV Solution 1, 1000 / 1000 1000 / 1000 000 ml @ 125 mls/hr IV .Q8H [facility] Rx#:[id number] Vitamin B1 100 mg In Sodium 51 / 51 Chloride 0.9% 50 ml @ 50 mls/hr IV DAILY [facility] Rx#:[id number] Oral 0 / 0 300 / 300 Other: # Voids 2 3 Exam: General: Alert, Awake, No acute Distress HEENT: EOMI, neck supple CV: RRR, No murmurs, normal s1/s2 Pulm: Clear b/l, no wheezing/rhonchi/rales Abd: soft, tender to palp epigastrium, +BS x4 Ext: no clubbing/cyanosis/edema Neuro: Alert, no focal deficits, moves all extremities Skin: warm/dry Medical - PN: Obj Da - Labs CBC & Chem 7: 03/26/18 04:47 03/27/18 05:11 Labs: Abnormal Lab Results 03/26/18 03/26/18 03/26/18 04:57 04:47 04:47 Gran % 83.5 H Lymph % (Auto) 5.6 L Lymph # (Auto) 0.4 L Chloride Anion Gap BUN 3 L Glucose 129 H Phosphorus 2.2 L GGT 141 H AST 45 H ALT Alkaline Phosphatase 138 H Lactate Dehydrogenase Lipase 425 H Ethyl Alcohol 03/25/18 03/25/18 03/25/18 10:02 03:03 03:03 Gran % Lymph % (Auto) Lymph # (Auto) Chloride 95 L Anion Gap 19.0 H BUN Glucose 159 H Phosphorus GGT AST 82 H ALT 52 H Alkaline Phosphatase 130 H Lactate Dehydrogenase 317 H Lipase 177 H Ethyl Alcohol 0.034 H 03/25/18 03:03 Gran % 79.8 H Lymph % (Auto) 10.9 L Lymph # (Auto) 0.7 L Chloride Anion Gap BUN Glucose Phosphorus GGT AST ALT Alkaline Phosphatase Lactate Dehydrogenase Lipase Ethyl Alcohol Meds: Medications Hydrocodone Bitart/Acetaminophen ([place] 5/325mg) 1 tab PO Q8HP PRN PRN Reason: Pain Last Admin: 03/27/18 03:56 Dose: 1 tab Amlodipine Besylate (Norvasc) 5 mg PO QDAY [facility] Last Admin: 03/26/18 09:06 Dose: 5 mg Lipase/Protease/Amylase (Creon) 2 cap PO TID [facility] Last Admin: 03/26/18 20:17 Dose: 2 cap Chlordiazepoxide HCl (Librium) 50 mg PO Q4HP PRN PRN Reason: Alcohol Withdrawal Clonidine HCl (Catapres) 0.1 mg PO Q4HP PRN PRN Reason: Alcohol Withdrawal Enoxaparin Sodium (Lovenox) 40 mg SQ DAILY [facility] Last Admin: 03/26/18 09:06 Dose: 40 mg Famotidine (Pepcid) 20 mg IV Q12 [facility] Last Admin: 03/26/18 20:21 Dose: 20 mg Folic Acid (Folic Acid) 2 mg PO QDAY [facility] Last Admin: 03/26/18 09:06 Dose: 2 mg Hydromorphone HCl (Dilaudid) 0.5 - 1 mg IV Q2HP PRN PRN Reason: PAIN LEVEL > 6 Last Admin: 03/27/18 03:55 Dose: 1 mg Hydroxyzine HCl (Atarax) 50 mg PO HSP PRN PRN Reason: Insomnia Last Admin: 03/26/18 20:18 Dose: 50 mg Thiamine HCl 100 mg/ Sodium (Chloride) 51 mls @ 50 mls/hr IV DAILY [facility] Last Infusion: 03/26/18 17:02 Dose: Infused Dextrose/Sodium Chloride (Dextrose 5%-Ns Iv Solution) 1,000 mls @ 125 mls/hr IV .Q8H [facility] Last Admin: 03/27/18 03:50 Dose: 125 mls/hr Iron Carb/Multivit/[place]/Folic Acid (Multivitamin W/Minerals) 1 tab PO DAILY [facility] Last Admin: 03/26/18 09:06 Dose: 1 tab Lorazepam (Ativan) 0 mg IV Q4HP PRN; Protocol PRN Reason: Alcohol Withdrawal Ondansetron HCl (Zofran) 4 mg IV Q6HP PRN PRN Reason: Nausea And Vomiting Last Admin: 03/27/18 01:36 Dose: 4 mg Prochlorperazine Edisylate (Compazine) 5 mg IV Q4HP PRN PRN Reason: Nausea And Vomiting Last Admin: 03/26/18 11:46 Dose: 5 mg Sodium Chloride (Saline Flush) 10 ml IV Q8 [facility] Last Admin: 03/27/18 05:59 Dose: 10 ml Tamsulosin HCl (Flomax) 0.4 mg PO HS [facility] Last Admin: 03/26/18 20:17 Dose: 0.4 mg Medical - PN: A/P - Time Spent With Patient Total time spent is greater than 50% in coordination of care (as documented) at patient's floor/unit and/or counseling patient: - Narrative A/P Narrative: A: *Acute on chronic pancreatitis: Secondary to continued alcohol abuse, plus or minus home medication he does take omeprazole which is a class Ib category -CT imaging no necrosis abscess or pseudocyst *Alcohol abuse: *Mild transaminitis: secondary to alcohol abuse with likely fatty liver. Improved *Hypertension: *Obstructive sleep apnea noncompliant with CPAP machine *Anxiety *GERD *Chronic pain, LBP and foot P: -advance to clears -IV fluid hydration decrease -Antiemetics pain control -DC'd home Prilosec switched to Pepcid -CPAP -CIWA, vitamins, prn benzo -ppx: Lovenox
[2018-03-27 07:06] LABS: Blood Urea Nitrogen 3 mg/dl (8-23)
[2018-03-27] MEDS: HYDROcodone/APAP 5/325MG TABLET PO PRN ×4 (09:37→21:08)
[2018-03-27] MEDS: FOLIC ACID 1 MG TABLET PO SCH (09:38)
[2018-03-27] MEDS: THIAMINE 100 MG in 0.9 % SODIUM CHLORIDE 50 ML IV SCH (09:38)
[2018-03-27] MEDS: LIPASE/PROTEASE/AMYLASE 1 CAP CAPSULE PO SCH ×3 (09:38→22:04)
[2018-03-27] MEDS: FAMOTIDINE/PF 20 MG/2 ML VIAL IV SCH ×2 (09:39→21:09)
[2018-03-27] MEDS: ENOXAPARIN 40 MG/0.4 ML SYRINGE SQ SCH (09:39)
[2018-03-27] MEDS: amLODIPine 5 MG TABLET PO SCH (09:39)
[2018-03-27] MEDS: MULTIVIT,THER IRON,CA,FA & MIN 1 TABLET PO SCH (09:39)
--- NOTE | 2018-03-27 11:26 | Discharge Summary ---
Medical - DS: Prov Patient information: Note initiated : 03/27/18 at 11:23 am Service Date, if different from initiated Date: [] Patient: Miquel Quinn 67 y/o M admitted on 03/25/18 for Chest pain. Chief Complaint: [] Date of admission: 03/25/18 07:19 Discharge date: 03/28/18 Primary care physician: [facility] - DS: Meds - Discharge Medications Prescriptions: Famotidine [Acid [facility] [facility]] 20 mg PO BID PRN #60 tab PRN Reason: Dyspepsia Active and Home Medications: Home Medications HYDROcodone/APAP 5/325MG [Pinch 5-325Mg] 1 tab PO Q8HP PRN #14 tab 03/15/17 [Rx Confirmed 03/25/18 Last Taken 03/23/18 08:00] amlodipine 5 mg tablet 5 mg PO QDAY #90 tab 03/02/18 [Rx Confirmed 03/25/18 Last Taken 03/24/18 08:00] aripiprazole 5 mg tablet 5 mg PO QHS #90 tab 03/02/18 [Rx Confirmed 03/25/18 Last Taken 03/24/18 08:00] ascorbic acid (vitamin C) 500 mg tablet 2 g PO QDAY #360 tab 03/02/18 [Rx Confirmed 03/25/18 Last Taken 03/22/18 08:00] blood sugar diagnostic strips See Dose Instructions .ROUTE .MEDSUPPLY #100 each 03/02/18 [Rx Confirmed 03/02/18 Last Taken Unknown] celecoxib 200 mg capsule 200 mg PO QDAY #90 cap 03/02/18 [Rx Confirmed 03/25/18 Last Taken 03/23/18 08:00] cetirizine 10 mg tablet 10 mg PO QHS PRN #90 tab 03/02/18 [Rx Confirmed Last Taken Unknown] cholecalciferol (vitamin D3) 5,000 unit capsule 5,000 unit PO QDAY #90 cap 03/02 [Rx Confirmed 03/25/18 Last Taken 03/23/18 08:00] fluticasone 50 mcg/actuation nasal spray,suspension 1 spray INTRANASAL BID # 18.2 g 03/02/18 [Rx Confirmed 03/02/18 Last Taken Unknown] folic acid 1 mg tablet 2 mg PO QDAY #180 tab 03/02/18 [Rx Confirmed 03/25/18 Last Taken 03/23/18 08:00] hydroxyzine pamoate 50 mg capsule 50 mg PO QHS PRN #90 cap 03/02/18 [Rx Confirmed 03/25/18 Last Taken Unknown] lancets See Dose Instructions .ROUTE .MEDSUPPLY #100 each 03/02/18 [Rx Confirmed 03/02/18 Last Taken Unknown] lidocaine 5 % topical patch 1 patch TOPICAL QDAY #30 each 03/02/18 [Rx Confirmed 03/25/18 Last Taken 03/23/18 08:00] qszzvw-[id number] 6,000-19,000-30,000 unit capsule,delayed rel 2 cap PO TID #540 cap 03/02/18 [Rx Confirmed 03/25/18 Last Taken 03/23/18 08:00] omeprazole 20 mg capsule,delayed release 40 mg PO .COMPLEX #180 cap 03/02/18 [ Rx Confirmed 03/25/18 Last Taken 03/23/18 08:00] prazosin 2 mg capsule See Label Instructions PO .COMPLEX #90 cap 03/02/18 [Rx Confirmed 03/02/18 Last Taken Unknown] tadalafil 5 mg tablet 5 mg PO QDAY PRN #90 tab 03/02/18 [Rx Confirmed 03/02/18 Last Taken Unknown] tamsulosin 0.4 mg capsule 0.4 mg PO .COMPLEX #90 cap 03/02/18 [Rx Confirmed 05/31 Last Taken 03/23/18 08:00] vitamin A palmitate 10,000 unit capsule See Label Instructions PO .QD #90 cap [Rx Confirmed 03/25/18 Last Taken 03/23/18 08:00] Medical - DS: Hosp Hospital course: Mr. Quinn is a 67 year old M Mr. Quinn is a 67 year old M With history of alcohol abuse and chronic pancreatitis who states he drinks about 6-12 beers a day. Yesterday he drank more including 2 vodkas plus beers, he woke up feeling fine in the morning, he started drinking afternoon. And then in the evening he woke up in the bathtub with abdominal pain, does remember getting into the bathtub. Describes the pain as upper abdomen and severe sharp and severe achy with radiation directly through to the back. He has some nausea no vomiting he had one episode of diarrhea yesterday. Denies drug use. In the ER he was evaluated and found to have acute on chronic pancreatitis. 03/26 Poor sleep because of pump Making noise, interruptions. Pain relatively controlled with analgesics, but if he waits too long it is quite severe. Denies nausea vomiting. 03/27 Sleep not great, but better than last night. Pain is relatively controlled. No other new complaints. Appetite is better today. 03/28 Abdominal pain improving states apple juice bother him a little bit but Jell-O and other food with no problem. No other new complaints. Now eating full liquid diet without any problems. Stable for discharge Discharge diagnosis: Hyperal-induced pancreatitis alcohol abuse mild transaminitis - Time Spent with Patient Total time spent providing and/or coordinating discharge services: Medical - DS: Exam - Constitutional Vitals: Vital Signs Temp Pulse Resp BP BP Pulse Ox 03/27/18 10:37 94 03/27/18 07:56 97.5 F 85 16 169/91 95 03/27/18 04:00 97.8 F 58 L 18 158/85 92 03/26/18 23:31 98.2 F 68 18 146/84 91 03/26/18 19:44 98.2 F 60 16 166/84 92 03/26/18 15:44 98.4 F 16 164/84 95 03/26/18 11:30 98.1 F 62 20 155/82 95 Intake and Output 03/26/18 03/27/18 03/27/18 21:59 05:59 13:59 Intake Total 1051 / 1051 1300 / 1300 51 / 51 Balance 1051 / 1051 1300 / 1300 51 / 51 Intake: IV 1051 / 1051 1000 / 1000 51 / 51 Dextrose 5%-Ns IV Solution 1, 1000 / 1000 1000 / 1000 000 ml @ 125 mls/hr IV .Q8H [facility] Rx#:[id number] Vitamin B1 100 mg In Sodium 51 / 51 51 / 51 Chloride 0.9% 50 ml @ 50 mls/hr IV DAILY [facility] Rx#:[id number] Oral 0 / 0 300 / 300 Other: # Voids 2 3 Weight 96.615 kg Medical - DS: Data Labs on day of discharge: Labs from last 24 hours 03/27/18 03/27/18 05:11 05:11 Sodium 133 Potassium 3.7 Chloride 98 Carbon Dioxide 24 Anion Gap 11.0 BUN 3 L Creatinine 0.7 GFR Calculation 97 Glucose 139 H Calcium 8.5 L Lipase 102 H Medical - DS: A/P - Patient/Caregiver Discharge Instructions Activity: increase activity as tolerated Diet: Full Liquid (Advance as tolerated to low-fat low residue diet) Prescriptions: Famotidine [Acid [facility] Magistrate] 20 mg PO BID PRN #60 tab PRN Reason: Dyspepsia - Follow up Plan Follow up with: [facility] ARNP [Primary Care Provider] - Disposition: Home, Self-Care Prognosis: Good Rehab Potential: Fair
[2018-03-27] MEDS: TAMSULOSIN 0.4 MG CAPSULE PO SCH (21:54)
[2018-03-27] MEDS: ARIPIPRAZOLE 5 MG TABLET PO SCH (21:54)
[2018-03-27] MEDS: hydrOXYzine 25 MG TABLET PO PRN (22:03)
[2018-03-28] MEDS: HYDROmorphone 2 MG/ML VIAL IV PRN (00:18)
[2018-03-28] MEDS: HYDROcodone/APAP 5/325MG TABLET PO PRN ×2 (03:15→06:53)
[2018-03-28] MEDS: 0.9 % SODIUM CHLORIDE 10 ML SYRINGE IV SCH (05:56)
--- NOTE | 2018-03-28 07:48 | Internal Med Progress Note ---
Medical - PN: Subj Patient information: Note initiated : 03/28/18 at 7:43 am Service Date, if different from initiated Date: [] Patient: Miquel Quinn 67 y/o M admitted on 03/25/18 for Chest pain. Chief Complaint: [] Interval history: Mr. Quinn is a 67 year old M With history of alcohol abuse and chronic pancreatitis who states he drinks about 6-12 beers a day. Yesterday he drank more including 2 vodkas plus beers, he woke up feeling fine in the morning, he started drinking afternoon. And then in the evening he woke up in the bathtub with abdominal pain, does remember getting into the bathtub. Describes the pain as upper abdomen and severe sharp and severe achy with radiation directly through to the back. He has some nausea no vomiting he had one episode of diarrhea yesterday. Denies drug use. In the ER he was evaluated and found to have acute on chronic pancreatitis. 03/26 Poor sleep because of pump Making noise, interruptions. Pain relatively controlled with analgesics, but if he waits too long it is quite severe. Denies nausea vomiting. 03/27 Sleep not great, but better than last night. Pain is relatively controlled. No other new complaints. Does have an appetite 03/28 Abdominal pain improving states apple juice bother him a little bit but Jell-O and other food with no problem. No other new complaints Review of Systems: denies headache/fever/chills/nausea/vomiting/chest pain/cough/dyspnea/diarrhea. Otherwise see above. - Constitutional Vitals: Vital Signs Temp Pulse Resp BP Pulse Ox 98.2 F 53 L 15 156/89 97 03/28/18 07:08 03/28/18 07:08 03/28/18 07:08 03/28/18 07:08 03/28/18 07:08 Period Temp Pulse Resp BP Sys/Rosado Pulse Ox Last 24 Hr 97.5 F-98.4 F 53-85 12-18 128-169/76-92 92-97 Intake and Output 03/27/18 03/28/18 03/28/18 21:59 05:59 13:59 Intake Total 700 / 700 120 / 120 Balance 700 / 700 120 / 120 Weight 93.213 kg Intake & Output: Intake & Output 1003/28/18 03/28/18 21:59 05:59 13:59 Intake Total 700 / 700 120 / 120 Balance 700 / 700 120 / 120 Weight 93.213 kg Intake: Oral 700 / 700 120 / 120 Other: Meal Dinner Percent of Meal Consumed 100% Feeding Ability Independent # Voids 2 1 Exam: General: Alert, Awake, No acute Distress HEENT: EOMI, neck supple CV: RRR, No murmurs, normal s1/s2 Pulm: Clear b/l, no wheezing/rhonchi/rales Abd: soft, mild tender to palp epigastrium, +BS x4 Ext: no clubbing/cyanosis/edema Neuro: Alert, no focal deficits, moves all extremities Skin: warm/dry Medical - PN: Obj Da - Labs CBC & Chem 7: 03/26/18 04:47 03/27/18 05:11 Labs: Abnormal Lab Results 03/27/18 03/27/18 03/26/18 05:11 05:11 04:57 Gran % Lymph % (Auto) Lymph # (Auto) BUN 3 L Glucose 139 H Calcium 8.5 L Phosphorus GGT AST Alkaline Phosphatase Lactate Dehydrogenase Lipase 102 H 425 H 03/26/18 03/26/18 03/25/18 04:47 04:47 10:02 Gran % 83.5 H Lymph % (Auto) 5.6 L Lymph # (Auto) 0.4 L BUN 3 L Glucose 129 H Calcium Phosphorus 2.2 L GGT 141 H AST 45 H Alkaline Phosphatase 138 H Lactate Dehydrogenase 317 H Lipase Meds: Medications Hydrocodone Bitart/Acetaminophen ([place] 5/325mg) 1 tab PO Q4HP PRN PRN Reason: Pain Last Admin: 03/28/18 06:53 Dose: 1 tab Amlodipine Besylate (Norvasc) 5 mg PO QDAY [facility] Last Admin: 03/27/18 09:39 Dose: 5 mg Lipase/Protease/Amylase (Creon) 2 cap PO TID [facility] Last Admin: 03/27/18 22:04 Dose: 2 cap Chlordiazepoxide HCl (Librium) 50 mg PO Q4HP PRN PRN Reason: Alcohol Withdrawal Clonidine HCl (Catapres) 0.1 mg PO Q4HP PRN PRN Reason: Alcohol Withdrawal Enoxaparin Sodium (Lovenox) 40 mg SQ DAILY [facility] Last Admin: 03/27/18 09:39 Dose: 40 mg Famotidine (Pepcid) 20 mg IV Q12 [facility] Last Admin: 03/27/18 21:09 Dose: 20 mg Folic Acid (Folic Acid) 2 mg PO QDAY [facility] Last Admin: 03/27/18 09:38 Dose: 2 mg Hydromorphone HCl (Dilaudid) 0.5 - 1 mg IV Q2HP PRN PRN Reason: PAIN LEVEL > 6 Last Admin: 03/28/18 00:18 Dose: 1 mg Hydroxyzine HCl (Atarax) 50 mg PO HSP PRN PRN Reason: Insomnia Last Admin: 03/27/18 22:03 Dose: 50 mg Thiamine HCl 100 mg/ Sodium (Chloride) 51 mls @ 50 mls/hr IV DAILY [facility] Last Infusion: 03/27/18 10:56 Dose: Infused Iron Carb/Multivit/[employer]/Folic Acid (Multivitamin W/Minerals) 1 tab PO DAILY [facility] Last Admin: 03/27/18 09:39 Dose: 1 tab Lorazepam (Ativan) 0 mg IV Q4HP PRN; Protocol PRN Reason: Alcohol Withdrawal Ondansetron HCl (Zofran) 4 mg IV Q6HP PRN PRN Reason: Nausea And Vomiting Last Admin: 03/27/18 21:25 Dose: 4 mg Prochlorperazine Edisylate (Compazine) 5 mg IV Q4HP PRN PRN Reason: Nausea And Vomiting Last Admin: 03/26/18 11:46 Dose: 5 mg Sodium Chloride (Saline Flush) 10 ml IV Q8 [facility] Last Admin: 03/28/18 05:56 Dose: 10 ml Tamsulosin HCl (Flomax) 0.4 mg PO HS [facility] Last Admin: 03/27/18 21:54 Dose: 0.4 mg Medical - PN: A/P - Time Spent With Patient Total time spent is greater than 50% in coordination of care (as documented) at patient's floor/unit and/or counseling patient: - Narrative A/P Narrative: A: *Acute on chronic pancreatitis: Secondary to continued alcohol abuse, plus or minus home medication he does take omeprazole which is a class Ib category -CT imaging no necrosis abscess or pseudocyst *Alcohol abuse: *Mild transaminitis: secondary to alcohol abuse with likely fatty liver. Improved *Hypertension: *Obstructive sleep apnea noncompliant with CPAP machine *Anxiety *GERD *Chronic pain, LBP and foot P: -Full liquids start -IV fluid hydration d/c -Antiemetics pain control -DC'd home Prilosec switched to Pepcid -CPAP -CIWA, vitamins, prn benzo -ppx: Lovenox
[2018-03-28] MEDS: MULTIVIT,THER IRON,CA,FA & MIN 1 TABLET PO SCH (08:07)
[2018-03-28] MEDS: amLODIPine 5 MG TABLET PO SCH (08:07)
[2018-03-28] MEDS: FOLIC ACID 1 MG TABLET PO SCH (08:07)
[2018-03-28] MEDS: FAMOTIDINE/PF 20 MG/2 ML VIAL IV SCH (08:07)
[2018-03-28] MEDS: ENOXAPARIN 40 MG/0.4 ML SYRINGE SQ SCH (08:08)
[2018-03-28] MEDS: LIPASE/PROTEASE/AMYLASE 1 CAP CAPSULE PO SCH (08:08)
[2018-03-28] MEDS ORDERED: POLYETHYLENE GLYCOL 3350 17 GM PACKET PO PRN (08:36)
[2018-03-28] MEDS: THIAMINE 100 MG in 0.9 % SODIUM CHLORIDE 50 ML IV SCH (08:40)
== END 2018-03-28 12:32 | disposition home or self-care (01) | DRG 439 ==
LOC: UNDODISIN → ED 02:51 → MEDSUR 07:14 → OBSVTOIN 07:19 → MEDSUR 07:19 → INTOOBSV 07:19
PROVIDERS: ADMIT Internal Medicine; ATTEND Internal Medicine
CPT/HCPCS: 90686; 99223; 99231; 99238; J0780; J1170; J1650; J2405; J3411; J3475; J3480; J7030; J7042; J7050; Q9967